=== PATIENT | female | born 1960 | race Caucasian/White ===

== ENCOUNTER 2016-05-18 18:44 | Emergency (ER) | payer MEDICARE, MEDICAID ==
[~2016-05-18] VITALS: Ht 165.1 cm; Wt 68.0 kg
[~2016-05-18 18:44] MED LIST: ALPR.5T; ALPR2TAB2 PO; ASP81TEC; BIAXIN; C250T; CEFU250T PO; DEXL60CA PO; E400C; EST.625T PO; LACT10SO33 PO; MULT1TAB63; NF-ESOM40C PO; RNT150T PO; SIMV10TA3; SIMV10TA3 PO; TRAM-21 PO
[2016-05-18] MEDS ORDERED: NF-ESOM40C PO (19:01)
[2016-05-18 19:02] LABS: BASOPHILS % (AUTO) 0 % (0-10); EOSINOPHILS # (AUTO) 0.1 10^3/uL (0.0-0.3); EOSINOPHILS % (AUTO) 2 % (0-10); LYMPHOCYTES # (AUTO) 2.6 X 10^3 (1.0-4.0); LYMPHOCYTES % (AUTO) 58 % (12-44); MEAN CORPUSCULAR HEMOGLOBIN 34 PG (25-34); MEAN CORPUSCULAR HGB CONC 34 G/DL (32-36); MEAN CORPUSCULAR VOLUME 98 FL (80-99); MEAN PLATELET VOLUME 10.6 FL (7.4-10.4); MONOCYTES # (AUTO) 0.6 X 10^3 (0.0-1.0); MONOCYTES % (AUTO) 12 % (0-12); NEUTROPHILS # (AUTO) 1.2 X 10^3 (1.8-7.8); NEUTROPHILS % (AUTO) 27 % (42-75); PLATELET COUNT 194 10^3/uL (130-400); RED BLOOD COUNT 3.66 10^6/uL (4.35-5.85); RED CELL DISTRIBUTION WIDTH 11.6 % (10.0-14.5); WHITE BLOOD COUNT 4.5 10^3/uL (4.3-11.0)
[2016-05-18 19:05] LABS: INR 1.1 (0.8-1.4); PROTHROMBIN TIME PATIENT 13.9 SEC (12.2-14.7)
--- NOTE | 2016-05-18 19:11 | Diagnostic Imaging Report ---
CHEST 1 VIEW, AP/PA ONLY Indication: Chest pain for 3 days Comparison: None available. Findings: No focal airspace disease in the visualized lungs. Please note that the posterior lower lobes are poorly evaluated by portable radiography. No pleural effusion or pneumothorax. Normal cardiomediastinal silhouette. Degenerative changes at the right sternoclavicular joint results in a stable nodular opacity over the right upper medial lung zone. Impression: No acute cardiopulmonary process by portable radiography. Dictated by: Dictated on workstation # [id number]
[2016-05-18 19:15] LABS: ALANINE AMINOTRANSFERASE 15 U/L (0-55); ANION GAP 10 MMOL/L (5-14); ASPARTATE AMINO TRANSFERASE 21 U/L (5-34); BILIRUBIN,TOTAL 0.4 MG/DL (0.1-1.0); BLOOD UREA NITROGEN 17 MG/DL (7-18); BUN/CREATININE RATIO 22; CARBON DIOXIDE 26 MMOL/L (21-32); CHLORIDE 104 MMOL/L (98-107); CREATINE KINASE 79 U/L (29-168); CREATININE SERUM 0.79 MG/DL (0.60-1.30); GFR ESTIMATED > 60; GLUCOSE 88 MG/DL (70-105); MAGNESIUM 2.1 MG/DL (1.8-2.4); POTASSIUM 4.1 MMOL/L (3.6-5.0); SODIUM 140 MMOL/L (135-145); TOTAL PROTEIN 6.4 G/DL (6.4-8.2)
[2016-05-18 19:21] LABS: MYOGLOBIN SERUM 20.9 NG/ML (10.0-92.0)
--- NOTE | 2016-05-18 19:41 | ED Chest Pain ---
General Chief Complaint: Chest Pain Stated Complaint: CP Nursing Triage Note: Pt. advises chest pain began approx. 3 days ago but has become progressively worse. Nursing Sepsis Screen: No Definite Risk Source: patient, old records Exam Limitations: no limitations History of Present Illness Time seen by provider: 18:40 Initial Comments This 55-year-old woman presents to the emergency room with complaints of chest pain and palpitations worsening over the last 3 days. She reports pain was 10/ 10 at its worst but is now minimal at 2/10. She arrived by EMS and aspirin 324 mg was administered by EMS. Nitroglycerin was not administered as blood pressures were in the 100-110 range systolic. Patient reports her pain today actually started in her legs as she was having an exacerbation of chronic leg pain. She laid down to watch TV and put her legs up. The pain then traveled up her legs into her chest, arms, and neck. She has been feeling nauseated and fatigued. She also reports having "breast pain" for a few weeks. She has an appointment with Dr. Jack on the but felt she couldn't wait today. The pain in her chest feels like a dull pressure. She has a history of anxiety but states this feels different than her usual anxiety. Review of her chart reveals a negative stress test in February 2008, a negative stress echo in May 2011, a stress test in April 2013 showing minimal reversible nondiagnostic EKG changes, and a negative stress test in October of last year. Allergies and Home Medications Allergies Coded Allergies: No Known Drug Allergies (Verified , 05/31/15) Home Medications Alprazolam 2 Mg Tablet, 2 MG PO TID PRN, (Reported) Dexlansoprazole 60 Mg , 60 MG PO DAILY, (Reported) Esomeprazole Magnesium 40 Mg Cap, 40 MG PO, (Reported) Simvastatin 10 Mg Tablet, 10 MG PO HS, (Reported) Review of Systems Constitutional: see HPI EENTM: No Symptoms Reported Respiratory: No Symptoms Reported Cardiovascular: See HPI Gastrointestinal: See HPI Genitourinary: No Symptoms Reported Musculoskeletal: see HPI Skin: no symptoms reported Psychiatric/Neurological: Anxiety Endocrine: No Symptoms Reported Past Cfwjgcw-Eurjoh-Vsjpts Hx Patient Social History Alcohol Use: Denies Use Recreational Drug Use: No Smoking Status: Former Smoker Type Used: Cigarettes Recent Foreign Travel: No Contact w/Someone Who Travel: No Recent Infectious Disease Expo: No Surgeries HX Surgeries: Yes (CYST FROM BREAST. 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 Genitourinary Hx Genitourinary Disorders: Yes (uti) Gastrointestinal Hx Gastrointestinal Disorders: Yes (REFLUX, HIATAL HERNIA, gastritis) Gastrointestinal Disorders: Gastroesophageal Reflux, Ulcer Musculoskeletal Hx Musculoskeletal Disorders: Yes (chronic leg pain) Musculoskeletal Disorders: Degenerate Disk Disease Endocrine Hx Endocrine Disorders: Yes Endocrine Disorders: Hypothyroidsim HEENT HX ENT Disorders: No Cancer Hx Cancer: No Psychosocial Hx Psychiatric Problems: Yes Behavioral Health Disorders: Anxiety, Depression Blood Transfusions Hx Blood Disorders: Yes Family Medical History Significant Family History: Heart Disease, Stroke Physical Exam Vital Signs Vital Sign - Last 12Hours 05/18/16 05/18/16 18:48 18:51 Temp 97.8 Pulse 54 Resp 14 B/P (MAP) 111/67 Pulse Ox 98 O2 Delivery Room Air Capillary Refill : Less Than 3 Seconds General Appearance: WD/WN, Anxious HEENT: PERRL/EOMI, Normal ENT Inspection, Pharynx Normal Neck: Normal Inspection, Other (tenderness over the left sternocleidomastoid muscle) Respiratory: Chest Non Tender, Lungs Clear, Normal Breath Sounds, No Accessory Muscle Use, No Respiratory Distress Cardiovascular: Regular Rate, Rhythm, No Edema, No Murmur, Normal Peripheral Pulses Gastrointestinal: Non Tender, Soft Extremity: Normal Inspection, Non Tender, No Pedal Edema Neurologic/Psychiatric: Alert, Oriented x3, No Motor/Sensory Deficits, Normal 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, 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 Norm as Tested Skin: Normal Color, Warm/Dry Progress/Results/Core Measures Results/Orders Lab Results Laboratory Tests Test 05/18/16 18:48 Range/Units White Blood Count 4.5 4.3-11.0 10^3/uL Red Blood Count 3.66 L 4.35-5.85 10^6/uL Hemoglobin 12.3 11.5-16.0 G/DL Hematocrit 36 35-52 % Mean Corpuscular Volume 98 80-99 FL Mean Corpuscular Hemoglobin 34 25-34 PG Mean Corpuscular Hemoglobin Concent 34 32-36 G/DL Red Cell Distribution Width 11.6 10.0-14.5 % Platelet Count 194 130-400 10^3/uL Mean Platelet Volume 10.6 H 7.4-10.4 FL Neutrophils (%) (Auto) 27 L 42-75 % Lymphocytes (%) (Auto) 58 H 12-44 % Monocytes (%) (Auto) 12 0-12 % Eosinophils (%) (Auto) 2 0-10 % Basophils (%) (Auto) 0 0-10 % Neutrophils # (Auto) 1.2 L 1.8-7.8 X 10^3 Lymphocytes # (Auto) 2.6 1.0-4.0 X 10^3 Monocytes # (Auto) 0.6 0.0-1.0 X 10^3 Eosinophils # (Auto) 0.1 0.0-0.3 10^3/uL Basophils # (Auto) 0.0 0.0-0.1 10^3/uL Prothrombin Time 13.9 12.2-14.7 SEC INR Comment 1.1 0.8-1.4 Activated Partial Thromboplast Time 23 L 24-35 SEC Sodium Level 140 135-145 MMOL/L Potassium Level 4.1 3.6-5.0 MMOL/L Chloride Level 104 98-107 MMOL/L Carbon Dioxide Level 26 21-32 MMOL/L Anion Gap 10 5-14 MMOL/L Blood Urea Nitrogen 17 7-18 MG/DL Creatinine 0.79 0.60-1.30 MG/DL Estimat Glomerular Filtration Rate > 60 BUN/Creatinine Ratio 22 Glucose Level 88 70-105 MG/DL Calcium Level 9.0 8.5-10.1 MG/DL Magnesium Level 2.1 1.8-2.4 MG/DL Total Bilirubin 0.4 0.1-1.0 MG/DL Aspartate Amino Transf (AST/SGOT) 21 5-34 U/L Alanine Aminotransferase (ALT/SGPT) 15 0-55 U/L Alkaline Phosphatase 55 40-136 U/L Total Creatine Kinase 79 29-168 U/L Myoglobin 20.9 10.0-92.0 NG/ML Troponin I < 0.30 <0.30 NG/ML Total Protein 6.4 6.4-8.2 G/DL Albumin 4.0 3.2-4.5 G/DL My Orders Orders - HELIO SALDAÑA MD Cbc With Automated Diff (05/18/16 18:57) Magnesium (05/18/16 18:57) Chest 1 View, Ap/Pa Only (05/18/16 18:57) Ekg Tracing (05/18/16 18:57) Cardiac Profile 1 (05/18/16 18:57) Comprehensive Metabolic Panel (05/18/16 18:57) Myoglobin Serum (05/18/16 18:57) Protime With Inr (05/18/16 18:57) Partial Thromboplastin Time (05/18/16 18:57) O2 (05/18/16 18:57) Monitor-Rhythm Ecg Trace Only (05/18/16 18:57) Saline Lock/Iv-Start (05/18/16 18:57) Creatine Kinase (05/18/16 18:57) Ketorolac Injection (Toradol Injection) (05/18/16 19:45) Medications Given in ED Current Medications Medications Dose Ordered Sig/Gray Route Start Time Stop Time Status Last Admin Dose Admin Ketorolac Tromethamine 30 mg ONCE ONCE IVP 05/18/16 19:45 05/18/16 19:46 DC 05/18/16 19:55 30 MG Vital Signs/I&O Vital Sign - Last 12Hours 05/18/16 05/18/16 05/18/16 05/18/16 18:48 18:51 18:51 21:03 Temp 97.8 Pulse 54 50 Resp 14 14 B/P (MAP) 111/67 Pulse Ox 98 96 98 O2 Delivery Room Air Room Air Room Air Blood Pressure Mean: 82 Progress Note : Time: 20:38 Progress Note Patient was given aspirin by EMS. Nitroglycerin was not given due to borderline blood pressure. Toradol was administered for her generalized pain including chest pain and pain in the left sternocleidomastoid muscle. This did seem to improve her discomfort. Patient continued to be rather anxious. I suspect she is fighting a viral illness as she has an increased percentage of lymphocytes on her CBC. Workup was unremarkable otherwise. ECG Initial ECG Impression Date: May 18, 2016 Initial ECG Impression Time: 18:48 Initial ECG Rate: 56 Initial ECG Rhythm: Normal Sinus Initial ECG Intervals: Normal Initial ECG Impression: Normal Comment Normal sinus rhythm with no ST elevation or depression. No abnormal intervals or axis deviation. Diagnostic Imaging Diagonstic Imaging: Xray Plain Films/CT/US/NM/MRI: chest Comments Chest x-ray viewed by me and report reviewed. See report below: NAME: RAIN HENSLEY [facility] REC#: [id number] PT STATUS: REG ER : 1960 PHYSICIAN: HELIO SALDAÑA MD ADMIT DATE: 05/18/16/ER Signed Date of Exam: 05/18/16 CHEST 1 VIEW, AP/PA ONLY CHEST 1 VIEW, AP/PA ONLY Indication: Chest pain for 3 days Comparison: None available. Findings: No focal airspace disease in the visualized lungs. Please note that the posterior lower lobes are poorly evaluated by portable radiography. No pleural effusion or pneumothorax. Normal cardiomediastinal silhouette. Degenerative changes at the right sternoclavicular joint results in a stable nodular opacity over the right upper medial lung zone. Impression: No acute cardiopulmonary process by portable radiography. Dictated by: Dictated on workstation # [id number] Dict: 05/18/161909 Trans: 05/18/161919 [facility] [id number] Interpreted by: SILVIO ALVARADO MD Electronically signed by:SILVIO ALVARADO MD 05/18/161919 Departure Impression Impression: Primary Impression: Generalized pain Additional Impressions: Atypical chest pain Sternocleidomastoid muscle tenderness Disposition: 01 HOME, SELF-CARE Condition: Improved Departure-Patient Inst. Decision time for Depature: 20:30 Referrals: ISELA EHNSLEY MD (PCP/Family) Primary Care Physician Patient Instructions: Chest Pain That Is Not Caused by the Heart (DC) Add. Discharge Instructions: Keep your appointment with Dr. Jack next week and follow-up with your primary care provider as well. Return to emergency room if symptoms worsen. You may continue NSAID therapy with medications such as ibuprofen or Aleve ( naproxen). You may take your next dose after midnight. Your white blood cell count shows a higher percentage of lymphocytes which may mean you are fighting off a viral infection. Your total number of lymphocytes is normal. Please discuss with your primary care provider. All discharge instructions reviewed with patient and/or family. Voiced understanding. Copy Copies To 1: ISELA HENSLEY MD Copies To 2: MAXIMUS JACK MD, JOSHUA T MD May 18, 2016 19:41
[2016-05-18] MEDS ORDERED: KETOROLAC 30 MG/ML VIAL IVP ONE (19:45)
[2016-05-18 21:03] VITALS: BP 104/45
--- OUTSIDE RECORDS SUMMARY | 2016-06-04 11:53 | XMS REPORT | Continuity of Care Document ---
Author Author [facility] Address Unknown Phone Unavailable Allergies Active Description Code Type Severity Reaction Onset Reported/Identified Relationship to Patient Clinical Status Yes NKANo Known Allergies NKA Miscellaneous Allergy Mild N/A 08/12/2008 Yes No Known Drug Allergies [id number] Drug Allergy Unknown N/ A 05/31/2015 Medications Problems Date Dx Coded Attending Type Code Diagnosis Diagnosed By 12/19/2009 Ot 535.50 12/19/2009 Ot 789.06 12/19/2009 Ot V58.69 01/08/2011 Ot 530.81 ESOPHAGEAL REFLUX 01/08/2011 Ot 535.40 OTH SPECIFIED GASTRITIS,W/O MENTION OF H 01/08/2011 Ot V04.81 ND FOR PROPHYLACTIC VACCIN AND INOCULATI 01/08/2011 Ot V58.69 OTH MED,LT,CURRENT USE 10/30/2011 BALDO LAGUERRE DO K 599.0 URINARY TRACT INFECTION 10/30/2011 BALDO LAGUERRE DO K 599.0 URINARY TRACT INFECTION 12/03/2012 BALDO LAGUERRE DO K 461.8 OTHER ACUTE SINUSITIS 12/03/2012 BALDO LAGUERRE DO K 461.8 OTHER ACUTE SINUSITIS 01/26/2013 BALDO LAGUERRE DO K 466.0 BRONCHITIS, ACUTE 07/26/2013 MAXIMUS BALDERAS MD Ot 530.81 ESOPHAGEAL REFLUX 07/26/2013 MAXIMUS BALDERAS MD Ot 533.90 PEPTIC ULCER NOS 07/26/2013 MAXIMUS BALDERAS MD Ot 785.1 PALPITATIONS 07/26/2013 MAXIMUS BALDERAS MD Ot 786.09 RESPIRATORY ABNORM NEC 07/26/2013 MAXIMUS BALDERAS MD Ot 786.50 CHEST PAIN NOS 07/26/2013 MAXIMUS BALDERAS MD Ot V17.3 FAM HX-ISCHEM HEART DIS 04/20/2014 MAXIMUS BALDERAS MD Ot 530.81 04/20/2014 MAXIMUS BALDERAS MD Ot 533.90 04/20/2014 SHERRIE MCKENZIE MAXIMUS Ceballos Ot 785.1 04/20/2014 SHERRIE MCKENZIE, MAXIMUS Ceballos Ot 786.09 04/20/2014 SHERRIE MCKENZIE, MAXIMUS Ceballos Ot 786.50 04/20/2014 SHERRIE MCKENZIE, MAXIMUS Ceballos Ot V17.3 05/09/2015 Ot 241.0 05/09/2015 Ot 784.1 05/09/2015 Ot 784.42 05/09/2015 Ot 241.0 05/09/2015 Ot 388.70 05/09/2015 Ot 723.1 05/09/2015 Ot 784.42 05/09/2015 Ot V76.12 05/09/2015 Ot 241.0 05/09/2015 Ot 241.0 05/09/2015 Ot 789.01 05/09/2015 Ot 241.0 05/09/2015 Ot 397.0 05/09/2015 Ot 424.0 05/09/2015 Ot 786.09 05/09/2015 Ot 786.50 05/09/2015 Ot 729.81 05/09/2015 Ot 724.5 05/09/2015 Ot 789.09 05/09/2015 Ot V45.77 05/09/2015 Ot V45.79 05/09/2015 Ot V88.01 05/09/2015 Ot 564.00 05/09/2015 Ot 625.9 05/09/2015 Ot 789.00 05/09/2015 Ot 241.1 05/09/2015 Ot 478.19 05/09/2015 Ot 794.09 05/09/2015 RICH MCKENZIE, MATTI Vaca Ot 473.9 05/09/2015 SHELLIE MCKENZIE, ISELA Strong Ot 253.8 05/09/2015 SHERRIE MCKENZIE, MAXIMUS Ceballos Ot 530.81 05/09/2015 SHERRIE MCKENZIE, MAXIMUS Ceballos Ot 533.90 05/09/2015 SHERRIE MCKENZIE, MAXIMUS Ceballos Ot 785.1 05/09/2015 SHERRIE MCKEZNIE, MAXIMUS Ceballos Ot 786.09 05/09/2015 SHERRIE MCKENZIE, MAXIMUS Ceballos Ot 786.50 05/09/2015 MAXIMUS BALDERAS MD Ot V17.3 05/09/2015 Ot 530.81 05/09/2015 Ot 533.90 05/09/2015 Ot 785.1 05/09/2015 Ot 786.09 05/09/2015 Ot 786.50 05/09/2015 Ot V17.3 05/09/2015 VIR[employer]JOSE [employer] Ot 611.71 05/09/2015 JOSE L VIRK [employer] Ot 793.89 05/09/2015 SHELLIE MCKENZIE, ISELA Strong Ot 784.0 05/09/2015 [employer] Ot R04.2 HEMOPTYSIS 05/09/2015 [employer] Ot R07.0 PAIN IN THROAT 05/10/2015 [employer] Ot R04.2 05/10/2015 [employer] Ot R07.0 05/11/2015 [employer] Ot R04.2 05/11/2015 [employer] Ot R07.0 05/29/2015 Ot 530.81 05/29/2015 Ot 533.90 05/29/2015 Ot 785.1 05/29/2015 Ot 786.09 05/29/2015 Ot 786.50 05/29/2015 Ot V17.3 05/29/2015 BRAD LUIS MD Ot R13.10 DYSPHAGIA, UNSPECIFIED 05/29/2015 JANELLE MCKENZIE, BRAD Ot Z01.818 ENCOUNTER FOR OTHER PREPROCEDURAL EXAMIN 05/30/2015 BRAD LUIS MD Ot R13.10 05/30/2015 BRAD LUIS MD Ot Z01.818 05/31/2015 Ot 530.81 05/31/2015 Ot 533.90 05/31/2015 Ot 785.1 05/31/2015 Ot 786.09 05/31/2015 Ot 786.50 05/31/2015 Ot V17.3 05/31/2015 BRAD LUIS MD Ot K22.2 ESOPHAGEAL OBSTRUCTION 05/31/2015 BRAD LUIS MD Ot K29.70 GASTRITIS, UNSPECIFIED, WITHOUT BLEEDING 05/31/2015 BRAD LUIS MD Ot K44.9 DIAPHRAGMATIC HERNIA WITHOUT OBSTRUCTION 06/01/2015 BRAD LUIS MD Ot K22.2 06/01/2015 BRAD LUIS MD Ot K29.70 06/01/2015 BRAD LUIS MD Ot K44.9 06/06/2015 BRAD LUIS MD Ot K22.2 06/06/2015 JANELLE MCKENZIE, BRAD Ot K29.70 06/06/2015 JANELLE MCKENZIE, BRAD Ot K44.9 10/04/2015 Ot V76.12 OTH SCREEN MAMMO-MALIGN NEOPLASM OF SANJAY 10/04/2015 Ot 241.0 NONTOX UNINODULAR GOITER 10/04/2015 Ot 241.0 NONTOX UNINODULAR GOITER 10/04/2015 Ot 789.01 ABDOMINAL PAIN, RIGHT UPPER QUADRANT 10/04/2015 Ot 241.0 NONTOX UNINODULAR GOITER 10/04/2015 Ot 397.0 TRICUSPID VALVE DISEASE 10/04/2015 Ot 424.0 MITRAL VALVE DISORDER 10/04/2015 Ot 786.09 RESPIRATORY ABNORM NEC 10/04/2015 Ot 786.50 CHEST PAIN NOS 10/04/2015 Ot 729.81 SWELLING OF LIMB 10/04/2015 Ot 724.5 BACKACHE NOS 10/04/2015 Ot 789.09 ABDOMINAL PAIN, OTHER SPECIFIED SITE 10/04/2015 Ot V45.77 ACQRD ABSENCE OF GENITAL ORGANS 10/04/2015 Ot V45.79 ACQRD ABSENCE OF OTH ORGAN 10/04/2015 Ot V88.01 ACQUIRED ABSENCE OF BOTH CERVIX AND UTER 10/04/2015 Ot 564.00 UNSPEC CONSTIPATION 10/04/2015 Ot 625.9 FEM GENITAL SYMPTOMS NOS 10/04/2015 Ot 789.00 ABDOMINAL PAIN, UNSPECIFIED SITE 10/04/2015 Ot 241.1 NONTOX MULTINODUL GOITER 10/04/2015 Ot 478.19 OTHER DISEASE OF NASAL CAVITY AND SINUSE 10/04/2015 Ot 794.09 ABN QUANTITATIVE ASSOCIATE FUNCT STUDY NEC 10/04/2015 RICH MCKENZIE, MATTI Vaca Ot 473.9 CHRONIC SINUSITIS NOS 10/04/2015 SHELLIE MCKENZIE, ISELA Strong Ot 253.8 PITUITARY DISORDER NEC 10/04/2015 SHERRIE MCKENZIE, MAXIMUS Ceballos Ot 530.81 ESOPHAGEAL REFLUX 10/04/2015 MAXIMUS BALDERAS MD Ot 533.90 PEPTIC ULCER NOS 10/04/2015 MAXIMUS BALDERAS MD Ot 785.1 PALPITATIONS 10/04/2015 MAXIMUS BALDERAS MD Ot 786.09 RESPIRATORY ABNORM NEC 10/04/2015 MAXIMUS BALDERAS MD Ot 786.50 CHEST PAIN NOS 10/04/2015 SHERRIE MD, BASHAR J Ot V17.3 FAM HX-ISCHEM HEART DIS 10/04/2015 Ot 530.81 ESOPHAGEAL REFLUX 10/04/2015 Ot 533.90 PEPTIC ULCER NOS 10/04/2015 Ot 785.1 PALPITATIONS 10/04/2015 Ot 786.09 RESPIRATORY ABNORM NEC 10/04/2015 Ot 786.50 CHEST PAIN NOS 10/04/2015 Ot V17.3 FAM HX-ISCHEM HEART DIS 10/04/2015 VIRKJOSE L ANTONIO Ish [employer] Ot 611.71 MASTODYNIA 10/04/2015 [employer] Ot 793.89 OTH (ABN) FINDINGS ON RADIOLOGICAL EXAMI 10/04/2015 SHELLIE MCKENZIE, ISELA Strong Ot 784.0 HEADACHE 10/05/2015 MIR RUELAS Ot F41.8 OTHER SPECIFIED ANXIETY DISORDERS 10/05/2015 MIR RUELAS Ot K21.9 GASTRO-ESOPHAGEAL REFLUX DISEASE WITHOUT 10/05/2015 MIR RUELAS Ot R00.2 PALPITATIONS 10/05/2015 MIR RUELAS Ot R07.89 OTHER CHEST PAIN 10/05/2015 MIR RUELAS Ot F41.8 OTHER SPECIFIED ANXIETY DISORDERS 10/05/2015 MIR RUELAS Ot K21.9 GASTRO-ESOPHAGEAL REFLUX DISEASE WITHOUT 10/05/2015 MIR RUELAS Ot R00.2 PALPITATIONS 10/05/2015 MIR RUEALS Ot R07.89 OTHER CHEST PAIN 10/26/2015 MIR RUELAS Ot F41.8 OTHER SPECIFIED ANXIETY DISORDERS 10/26/2015 MIR RUELAS Ot K21.9 GASTRO-ESOPHAGEAL REFLUX DISEASE WITHOUT 10/26/2015 MIR RUELAS Ot R00.2 PALPITATIONS 10/26/2015 MIR RUELAS Ot R07.89 OTHER CHEST PAIN 10/31/2015 MIR RUELAS Ot F41.8 OTHER SPECIFIED ANXIETY DISORDERS 10/31/2015 MIR RUELAS Ot K21.9 GASTRO-ESOPHAGEAL REFLUX DISEASE WITHOUT 10/31/2015 [facility], MIR K Ot R00.2 PALPITATIONS 10/31/2015 [facility], MIR K Ot R07.89 OTHER CHEST PAIN 11/09/2015 M[place]ROSIE PA, MIR K Ot R00.2 PALPITATIONS 11/09/2015 [place] PA, MIR K Ot R00.2 PALPITATIONS 11/09/2015 [facility] PA, MIR K Ot R07.9 CHEST PAIN, UNSPECIFIED 12/01/2015 [facility] PA, MIR K Ot R00.2 PALPITATIONS 12/01/2015 [facility] PA, MIR K Ot R07.9 CHEST PAIN, UNSPECIFIED 12/06/2015 [facility], MIR K Ot R00.2 PALPITATIONS 12/06/2015 [facility], MIR K Ot R07.9 CHEST PAIN, UNSPECIFIED 05/18/2016 PIOTR MCKENZIE, HELIO T Ot M79.1 MYALGIA 05/18/2016 PIOTR MCKENZIE, HELIO T Ot R00.2 PALPITATIONS 05/18/2016 PIOTR MCKENZIE, HELIO T Ot R07.89 OTHER CHEST PAIN 05/18/2016 PIOTR MCKENZIE, HELIO T Ot Z87.891 PERSONAL HISTORY OF NICOTINE DEPENDENCE 05/20/2016 PIOTR MCKENZIE, HELIO T Ot M79.1 MYALGIA 05/20/2016 PIOTR MCKENZIE, HELIO T Ot R00.2 PALPITATIONS 05/20/2016 PIOTR MCKENZIE, HELIO T Ot R07.89 OTHER CHEST PAIN 05/20/2016 PIOTR MCKENZIE, HELIO T Ot Z87.891 PERSONAL HISTORY OF NICOTINE DEPENDENCE 05/22/2016 PIOTR MCKENZIE, HELIO T Ot M79.1 MYALGIA 05/22/2016 PIOTR MCKENZIE, HELIO T Ot R00.2 PALPITATIONS 05/22/2016 PIOTR MCKENZIE, HELIO T Ot R07.89 OTHER CHEST PAIN 05/22/2016 PIOTR MCKENZIE, HELIO T Ot Z87.891 PERSONAL HISTORY OF NICOTINE DEPENDENCE 05/29/2016 Ot 241.0 NONTOX UNINODULAR GOITER 05/29/2016 Ot 789.01 ABDOMINAL PAIN, RIGHT UPPER QUADRANT 05/29/2016 Ot 241.0 NONTOX UNINODULAR GOITER 05/29/2016 Ot 397.0 TRICUSPID VALVE DISEASE 05/29/2016 Ot 424.0 MITRAL VALVE DISORDER 05/29/2016 Ot 786.09 RESPIRATORY ABNORM NEC 05/29/2016 Ot 786.50 CHEST PAIN NOS 05/29/2016 Ot 729.81 SWELLING OF LIMB 05/29/2016 Ot 724.5 BACKACHE NOS 05/29/2016 Ot 789.09 ABDOMINAL PAIN, OTHER SPECIFIED SITE 05/29/2016 Ot V45.77 ACQRD ABSENCE OF GENITAL ORGANS 05/29/2016 Ot V45.79 ACQRD ABSENCE OF OTH ORGAN 05/29/2016 Ot V88.01 ACQUIRED ABSENCE OF BOTH CERVIX AND UTER 05/29/2016 Ot 564.00 UNSPEC CONSTIPATION 05/29/2016 Ot 625.9 FEM GENITAL SYMPTOMS NOS 05/29/2016 Ot 789.00 ABDOMINAL PAIN, UNSPECIFIED SITE 05/29/2016 Ot 241.1 NONTOX MULTINODUL GOITER 05/29/2016 Ot 478.19 OTHER DISEASE OF NASAL CAVITY AND SINUSE 05/29/2016 Ot 794.09 ABN QUANTITATIVE ASSOCIATE FUNCT STUDY NEC 05/29/2016 RICH MCKENZIE, MATTI Vaca Ot 473.9 CHRONIC SINUSITIS NOS 05/29/2016 SHELLIE MCKENZIE, ISELA Strong Ot 253.8 PITUITARY DISORDER NEC 05/29/2016 MAXIMUS BALDERAS MD Ot 530.81 ESOPHAGEAL REFLUX 05/29/2016 MAXIMUS BALDERAS MD Ot 533.90 PEPTIC ULCER NOS 05/29/2016 MAXIMUS BALDERAS MD Ot 785.1 PALPITATIONS 05/29/2016 MAXIMUS BALDERAS MD Ot 786.09 RESPIRATORY ABNORM NEC 05/29/2016 MAXIMUS BALDERAS MD Ot 786.50 CHEST PAIN NOS 05/29/2016 MAXIMUS BALDERAS MD Ot V17.3 FAM HX-ISCHEM HEART DIS 05/29/2016 Ot 530.81 ESOPHAGEAL REFLUX 05/29/2016 Ot 533.90 PEPTIC ULCER NOS 05/29/2016 Ot 785.1 PALPITATIONS 05/29/2016 Ot 786.09 RESPIRATORY ABNORM NEC 05/29/2016 Ot 786.50 CHEST PAIN NOS 05/29/2016 Ot V17.3 FAM HX-ISCHEM HEART DIS 05/29/2016 JOSE L VIRK Ot 611.71 MASTODYNIA 05/29/2016 JOSE L VIRK [facility] Ot 793.89 OTH (ABN) FINDINGS ON RADIOLOGICAL EXAMI 05/29/2016 ISELA HENSLEY MD Ot 784.0 HEADACHE 05/29/2016 MIR RUELAS Ot F41.8 OTHER SPECIFIED ANXIETY DISORDERS 05/29/2016 MIR RUELAS Ot K21.9 GASTRO-ESOPHAGEAL REFLUX DISEASE WITHOUT 05/29/2016 MIR RUELAS Ot R00.2 PALPITATIONS 05/29/2016 MIR RUELAS Ot R07.89 OTHER CHEST PAIN 05/29/2016 MIR RUELAS Ot R00.2 PALPITATIONS 05/29/2016 MIR RUELAS Ot R07.9 CHEST PAIN, UNSPECIFIED Procedures Results Test Result Range Complete blood count (CBC) with automated white blood cell (WBC) differential - 05/18/16 18:48 Blood leukocytes automated count (number/volume) 4.5 10*3/ uL 4.3-11.0 Blood erythrocytes automated count (number/volume) 3.66 10*6 /uL 4.35-5.85 Venous blood hemoglobin measurement (mass/volume) 12.3 g/dL 11.5-16.0 Blood hematocrit (volume fraction) 36 % 35-52 Automated erythrocyte mean corpuscular volume 98 [foz_us] 80-99 Automated erythrocyte mean corpuscular hemoglobin (mass per erythrocyte) 34 pg 25-34 Automated erythrocyte mean corpuscular hemoglobin concentration measurement ( mass/volume) 34 g/dL 32-36 Automated erythrocyte distribution width ratio 11.6 % 10.0-14.5 Automated blood platelet count (count/volume) 194 10*3/uL 130-400 Automated blood platelet mean volume measurement 10.6 [foz_ us] 7.4-10.4 Automated blood neutrophils/100 leukocytes 27 % 42-75 Automated blood lymphocytes/100 leukocytes 58 % 12-44 Blood monocytes/100 leukocytes 12 % 0-12 Automated blood eosinophils/100 leukocytes 2 % 0-10 Automated blood basophils/100 leukocytes 0 % 0-10 Blood neutrophils automated count (number/volume) 1.2 10*3 1.8-7.8 Blood lymphocytes automated count (number/volume) 2.6 10*3 1.0-4.0 Blood monocytes automated count (number/volume) 0.6 10*3 0.0-1.0 Automated eosinophil count 0.1 10*3/uL 0.0-0.3 Automated blood basophil count (count/volume) 0.0 10*3/uL 0.0-0.1 PT panel in platelet poor plasma by coagulation assay - 05/18/16 18:48 Prothrombin time (PT) in platelet poor plasma by coagulation assay 13.9 s 12.2-14.7 INR in platelet poor plasma or blood by coagulation assay 1.1 0.8-1.4 Activated partial thromboplastin time (aPTT) in platelet poor plasma bycoagulation assay - 05/18/16 18:48 Activated partial thromboplastin time (aPTT) in platelet poor plasma bycoagulation assay 23 s 24-35 Comprehensive metabolic panel - 05/18/16 18:48 Serum or plasma sodium measurement (moles/volume) 140 mmol/ L 135-145 Serum or plasma potassium measurement (moles/volume) 4.1 mmol/L 3.6-5.0 Serum or plasma chloride measurement (moles/volume) 104 mmol /L 98-107 Carbon dioxide 26 mmol/L 21-32 Serum or plasma anion gap determination (moles/volume) 10 mmol/L 5-14 Serum or plasma urea nitrogen measurement (mass/volume) 17 mg/dL 7-18 Serum or plasma creatinine measurement (mass/volume) 0.79 mg /dL 0.60-1.30 Serum or plasma urea nitrogen/creatinine mass ratio 22 NRG Serum or plasma creatinine measurement with calculation of estimated glomerular filtration rate > NRG Serum or plasma glucose measurement (mass/volume) 88 mg/dL 70-105 Serum or plasma calcium measurement (mass/volume) 9.0 mg/dL 8.5-10.1 Serum or plasma total bilirubin measurement (mass/volume) 0.4 mg/dL 0.1-1.0 Serum or plasma alkaline phosphatase measurement (enzymatic activity/volume) 55 U/L 40-136 Serum or plasma aspartate aminotransferase measurement (enzymatic activity/ volume) 21 U/L 5-34 Serum or plasma alanine aminotransferase measurement (enzymatic activity/volume ) 15 U/L 0-55 Serum or plasma protein measurement (mass/volume) 6.4 g/dL 6.4-8.2 Serum or plasma albumin measurement (mass/volume) 4.0 g/dL 3.2-4.5 Magnesium - 05/18/16 18:48 Magnesium 2.1 mg/dL 1.8-2.4 Serum or plasma creatine kinase measurement (enzymatic activity/volume) - 05/18 18:48 Serum or plasma creatine kinase measurement (enzymatic activity/volume) 79 U/L 29-168 Serum or plasma troponin i.cardiac measurement (mass/volume) - 05/18/16 18:48 Serum or plasma troponin i.cardiac measurement (mass/volume) < ng/mL <0.30 Myoglobin, serum - 05/18/16 18:48 Myoglobin, serum 20.9 ng/mL 10.0-92.0 Encounters ACCT No. Visit Date/Time Discharge Status Pt. Type Provider Facility Loc./Unit Complaint [id number] 01/26/2013 14:01:00 01/26/2013 23: 59:59 [facility] Outpatient BALDO LAGUERRE DO [id number] 12/03/2012 08:39:00 12/03/2012 23: 59:59 [facility] Outpatient BALDO LAGUERRE DO
--- OUTSIDE RECORDS SUMMARY | 2016-06-04 11:53 | XMS REPORT ---
Author Author CORDELL MAN Organization [employer] Address Unknown Phone Unavailable Care Team Providers Care Wire Frame Lampshade Maker Name Role Phone CORDELL MAN CP Unavailable Allergies, Adverse Reactions, Alerts Substance Reaction Event Type N.K.D.A. Info Not Available Non Drug Allergy Problems Problem Type Condition Code Onset Dates Condition Status Problem Acute bronchitis 466.0 Active Problem Urinary tract infection, site not specified 599.0 Active Problem Encounter for dental examination Z01.20 Active Problem Other acute sinusitis 461.8 Active Assessment Dental examination Z01.20 Active Medications Medication Code System Code Instructions Start Date End Date Status Dosage Xanax [facility] [address]-10 1 mg Oct 30, 2011 1 Tablet 2 times per day Nexium [facility] [address]-01 40 mg Oct 30, 2011 take 1 capsule (40 mg ) by oral route once daily Flonase [facility] [address]-62 50 MCG/ACT Nasally Once a day August 19, 2014 1 spray in each nostril Simvastatin [facility] [address]-27 10 MG Orally Once a day 1 tablet in the evening Procedures Procedure Coding System Code Date INTRAORL-PERIAPICAL 1 FILM 76836 CPT-4 D0220 Nov 21, 2015 BITEWING - SINGLE FILM CPT-4 D0270 Nov 21, 2015 LTD ORAL EVALUATION - PROBLEM FOCUS CPT-4 D0140 Nov 21, 2015 Vital Signs Date/Time: Nov 21, 2015 Blood Pressure Diastolic 61 mmHg Blood Pressure Systolic 110 mmHg Results No Known Results Summary Purpose [employer] Submission
--- OUTSIDE RECORDS SUMMARY | 2016-06-04 11:53 | XMS REPORT ---
Author HERBERT Murphy [employer] Address Unknown Phone Unavailable Care Team Providers Care Digital Project Manager Name Role Phone HERBERT PELAEZ CP Unavailable Allergies, Adverse Reactions, Alerts Substance Reaction Event Type N.K.D.A. Info Not Available Non Drug Allergy Problems Problem Type Condition Code Onset Dates Condition Status Problem Acute bronchitis 466.0 Active Problem Urinary tract infection, site not specified 599.0 Active Problem Encounter for dental examination Z01.20 Active Problem Other acute sinusitis 461.8 Active Assessment Encounter for dental examination Z01.20 Active Medications Medication Code System Code Instructions Start Date End Date Status Dosage Simvastatin [facility] [address]-59 10 MG Orally Once a day 1 tablet in the evening Nexium [facility] [address]-23 40 mg Oct 30, 2011 take 1 capsule (40 mg ) by oral route once daily Xanax [facility] [address]-22 1 mg Oct 30, 2011 1 Tablet 2 times per day Procedures Procedure Coding System Code Date INTRAORL-PERIAPICAL 1 FILM 87512 CPT-4 D0220 Jan 09, 2015 INTRAORL-PERIAPICAL EA ADD FILM CPT-4 D0230 Jan 09, 2015 COMP ORAL EVALUATION - NEW/EST PT CPT-4 D0150 Jan 09, 2015 BITEWINGS - TWO FILMS CPT-4 D0272 Jan 09, 2015 INTRAORL-PERIAPICAL EA ADD FILM CPT-4 D0230 Jan 09, 2015 PROPHYLAXIS - ADULT CPT-4 D1110 Jan 09, 2015 Vital Signs Date/Time: Jan 09, 2015 Blood Pressure Diastolic 56 mmHg Blood Pressure Systolic 101 mmHg Cardiac Monitoring Heart Rate 62 bpm Results No Known Results Summary Purpose [employer] Submission
== END 2016-05-18 21:03 | disposition home or self-care (01) ==
LOC: EDUNIT# 18:44 → ER 18:45
DX: R07.89 Other chest pain (principal); M79.1 Myalgia; Z87.891 Personal history of nicotine dependence
CPT/HCPCS: 36415; 71010; 80053; 82550; 83735; 83874; 84484; 85025; 85610; 85730; 93005; 93041; 96374

== ENCOUNTER → 2016-06-06 | Outpatient (CLI) | payer MEDICARE, MEDICAID ==
[~2016-06-06] MED LIST changes: +ALPR2TAB6 PO; +CHOL5000 PO; +CYAN200014 PO; +MAGN250T PO; +NAPR220T66 PO; +SUCR1TAB PO; +VITA400C21 PO
--- NOTE | 2016-06-06 20:21 | Diagnostic Imaging Report ---
Examination: DEXA scan. Indication: Osteopenia. Technique: Bone mineral density estimated based on dual energy radiography over the lumbar spine and femoral necks, was performed. Findings: The lumbar spine T-score is 0.9. T-score over the left femoral neck is -1.2 and on the right side is -0.9. Impression: Borderline osteopenia based on femoral neck measurements. Dictated by: Dictated on workstation # [id number]
== END ==
LOC: RAD 11:45
PROVIDERS: ATTEND Family Medicine
DX: Z13.820 Encounter for screening for osteoporosis (principal); M85.88 Other specified disorders of bone density and structure, other site; Z78.0 Asymptomatic menopausal state
CPT/HCPCS: 77080

== ENCOUNTER 2016-06-12 07:56 | Day surgery (SDC) | payer MEDICARE, MEDICAID ==
[2016-06-12] VITALS (10 sets, daily range): BP systolic 92–118; BP diastolic 47–88
[~2016-06-12] VITALS: Ht 166.4 cm; Wt 68.0 kg
[~2016-06-12 07:56] MED LIST changes: -ALPR2TAB6 PO; -CHOL5000 PO; -CYAN200014 PO; -MAGN250T PO; -NAPR220T66 PO; -SUCR1TAB PO; -VITA400C21 PO
[2016-06-12] MEDS ORDERED: HEParin (CATH LAB) 2,000 ML IV ONE (08:10)
[2016-06-12] MEDS ORDERED: LIDOCAINE 1% INJ 20 ML (XYLOCAINE) VIAL ONE (08:10)
[2016-06-12] MEDS ORDERED: NS IV 1000 ML 1,000 ML ONE (08:10)
[2016-06-12] MEDS ORDERED: NS IV 1000 ML 1,000 ML IV SCH ×4 (08:16→10:24)
[2016-06-12 08:40] LABS: MEAN PLATELET VOLUME 10.4 FL (7.4-10.4); RED BLOOD COUNT 4.07 10^6/uL (4.35-5.85); RED CELL DISTRIBUTION WIDTH 11.7 % (10.0-14.5); WHITE BLOOD COUNT 4.8 10^3/uL (4.3-11.0)
[2016-06-12 08:41] LABS: BILIRUBIN,URINE NEGATIVE (NEGATIVE); KETONES,URINE NEGATIVE (NEGATIVE); LEUKOCYTE ESTERASE ,URINE NEGATIVE (NEGATIVE); NITRITE,URINE NEGATIVE (NEGATIVE); PH,URINE 6.5 (5-9); PROTEIN,URINE NEGATIVE (NEGATIVE); UROBILINOGEN,URINE NORMAL (NORMAL)
--- NOTE | 2016-06-12 08:45 | Diagnostic Imaging Report ---
INDICATION: Coronary artery disease. FINDINGS: The lungs are clear. The heart and vessels normal. There is no effusion or pneumothorax. IMPRESSION: Normal frontal chest. Dictated by: Dictated on workstation # [id number]
[2016-06-12 08:50] LABS: WBC,URINE 0-2 /HPF
[2016-06-12 08:52] LABS: PROTHROMBIN TIME PATIENT 12.9 SEC (12.2-14.7)
[2016-06-12 09:00] LABS: ALANINE AMINOTRANSFERASE 22 U/L (0-55); ALBUMIN 4.5 G/DL (3.2-4.5); ANION GAP 10 MMOL/L (5-14); ASPARTATE AMINO TRANSFERASE 24 U/L (5-34); BILIRUBIN,TOTAL 0.3 MG/DL (0.1-1.0); BLOOD UREA NITROGEN 16 MG/DL (7-18); BUN/CREATININE RATIO 20; CALCIUM 9.7 MG/DL (8.5-10.1); CARBON DIOXIDE 27 MMOL/L (21-32); CHLORIDE 102 MMOL/L (98-107); CHOLESTEROL 224 MG/DL (< 200); CREATININE SERUM 0.81 MG/DL (0.60-1.30); DIRECT LDL 141 MG/DL (1-129); GFR ESTIMATED > 60; GLUCOSE 96 MG/DL (70-105); POTASSIUM 3.7 MMOL/L (3.6-5.0); SODIUM 139 MMOL/L (135-145); TOTAL PROTEIN 7.5 G/DL (6.4-8.2); TRIGLYCERIDES 110 MG/DL (<150); VLDL CHOLESTEROL 22 MG/DL (5-40)
[2016-06-12] MEDS ORDERED: NAPR220T66 PO (09:17)
[2016-06-12] MEDS ORDERED: SUCR1TAB PO (09:17)
[2016-06-12] MEDS ORDERED: ALPR2TAB6 PO (09:17)
[2016-06-12] MEDS ORDERED: CYAN200014 PO (09:22)
[2016-06-12] MEDS ORDERED: MAGN250T PO (09:22)
[2016-06-12] MEDS ORDERED: VITA400C21 PO (09:22)
[2016-06-12] MEDS ORDERED: CHOL5000 PO (09:22)
[2016-06-12] MEDS ORDERED: fentaNYL INJECTION 100 MCG/2 ML AMP ONE (09:38)
[2016-06-12] MEDS ORDERED: MIDAZOLAM 5 MG/5 ML (VERSED) VIAL ONE (09:38)
--- NOTE | 2016-06-12 10:13 | Cardiac Procedure Note-CS/ASA ---
Pre-Procedure Note Pre-Op Procedure Note H&P Reviewed The H&P was reviewed, patient examined and no changes noted. Date H&P Reviewed: Jun 12, 2016 Time H&P Reviewed: 10:13 Conscious Sedation Pre-Proced Time Reviewed: 10:13 ASA Class: 3 Airway Mallampati Classification: ([place] appropriate class) I. II. III, IV Lungs Heart ASA score ASA 1: a normal healthy patient ASA 2: a patient with a mild systemic disease (mid diabetes, controlled hypertension, obesity x ASA 3: a patient with a severe systemic disease that limits activity (angina , COPD, prior Myocardial infarction) ASA 4: a patient with an incapacitating disease that is a constant threat to life (CHF, renal failure) ASA 5: a moribund patient not expected to survive 24 hrs. (ruptured aneurysm) ASA 6: a declared brain patient whose organs are being harvested. For emergent operations, add the letter E after the classification Grade 3 Sedation Plan: Analgesia, Amnesia, Plan communicated to team members, Discussed options with patient/fam, Discussed risks with patient/fam Note The patient is an appropriate candidate to undergo the planned procedure, sedation, and anesthesia. The patient immediately re-assessed prior to indication. MAXIMUS BALDERAS MD Jun 12, 2016 10:13
--- NOTE | 2016-06-12 10:28 | Discharge Inst-Post CATH ---
Discharge Inst-CATH Post Cardiac Cath D/C Inst Follow Up/Plan Appointment with Dr Jack's office in 2-4 weeks CARDIAC CATH DISCHARGE INSTRUCTIONS *Hold Metformin for 48 hours post heart cath. ACTIVITY * Go Home directly and rest. * Limit activity of the leg (or wrist if it was used) for 7 days including aerobics, swimming, jogging, bicycling, etc. * Restrict stair-climbing for 7 days if possible, if not, climb up with your non -cath leg, then bring together on the same step. * Avoid lifting, pushing, pulling or excessive movement of the affected extremity for 7 days. * Customary sexual activity may be resumed after 2 days-use caution not to use a position that strains or causes pain to the affected extremity. * No driving for 24 hours. * NO SMOKING. * Avoid straining for bowel movements for 7 days. * Gentle walking on level ground is allowed. * Returning to work will depend on the type of procedure and the results. Your doctor will discuss this with you. CALL YOUR DOCTOR FOR ANY OF THE FOLLOWING: *If bleeding from the puncture site occurs- Apply gentle pressure to site with clean cloth and call your doctor or EMS. * If a knot or lump forms under the skin, increases in size, or causes pain. * If bruising appears to be worsening or moving further down your leg instead of disappearing. * Temperature above 101 F. CARE OF YOUR GROIN INCISION; * Bruising or purple discoloration of the skin near the puncture site is common. * You may shower only, no bathtub bathing for 5 days. Be careful to avoid slipping as your leg may feel stiff. * If a closure device was used on your femoral artery, please see the attached guide regarding care of the device and your leg. * REMOVE the dressing from your groin the next day after your procedure in the shower. CARE OF YOUR WRIST INCISION; * Bruising or purple discoloration of the skin near the puncture site is common. * You may shower. * DO NOT submerge wrist. * Remove dressing in 24 hours. MAXIMUS JACK MD Jun 12, 2016 10:28
[2016-06-12] MEDS ORDERED: PATIENT MAY USE OWN MEDS, ALL PO SCH (10:30)
--- NOTE | 2016-06-13 10:40 | CARDIAC CATHETERIZATION ---
DATE OF SERVICE: 06/12/2016 CARDIAC CATHETERIZATION REFERRING PHYSICIAN: Dr. Tom Moraes BRIEF HISTORY: The patient is a 56-year-old lady with a history of recurrent chest pain and shortness of breath, had a borderline stress test. Continued to be symptomatic. Patient was scheduled for left heart catheterization, possible PTCA. PROCEDURE NOTE: After explaining the procedure to the patient, all pros and cons were explained, all questions were answered. The patient signed a consent and then she was place on the cardiac catheterization laboratory. Right groin was prepped in a sterile fashion. Local anesthesia applied to the right groin. A 6-Pashto sheath was placed in the right femoral artery. Combination of right and left Rudy catheter were used to access the right and left coronary system. Multiple views were obtained. Rudy right was prolapsed into the left ventricular cavity. Pressure was measured. No left ventriculogram was done. Pull back from LV to aorta was done. At the end of the procedure, sheath was removed. MYNX device deployed. Hemostasis achieved. TOTAL CONTRAST USED: 25 mL TOTAL RADIATION DOSE: 17 mGy FINDINGS: Hemodynamics: LV pressure 117/11, aortic pressure 123/60, mean of 78, no significant gradient across the aortic valve. ANATOMY: 1. The left main coronary artery is bifurcating into the left anterior descending and left circumflex artery with mild disease, no obstructive disease. 2. Left anterior descending is a smaller artery with no significant obstructive disease. 3. Left circumflex artery is moderate in size with mild disease, no significant obstructive disease. 4. Right coronary artery is a small artery with no significant obstructive disease. 5. No left ventriculogram was done. IN CONCLUSION: 1. Small to moderate-sized coronary system with mild coronary artery disease, no significant obstructive disease. 2. Normal left ventricular end diastolic pressure. DISCUSSION AND RECOMMENDATION: The patient's chest pain is probably noncardiac in nature. Medical therapy is recommended. No intervention is needed. FINAL DIAGNOSES: 1. Chest pain with nonspecific etiology. 2. Coronary artery disease. 3. Hypertension. 4. Hyperlipidemia. Job ID: [id number] DocumentID: [id number] Dictated Date: 06/12/2016 10:31:36 Interface Engineer Date: 06/12/2016 11:08:02 Dictated By: MAXIMUS BALDERAS MD
== END 2016-06-12 15:00 | disposition home or self-care (01) ==
LOC: CATH 07:56 → SURG 10:51 → CATH 15:00 → ENPENDDIS 15:00
PROVIDERS: ATTEND Internal Medicine Cardiovascular Disease
DX: R07.89 Other chest pain (principal); R06.02 Shortness of breath; I25.10 Atherosclerotic heart disease of native coronary artery without angina pectoris; I10 Essential (primary) hypertension; E78.5 Hyperlipidemia, unspecified; K21.9 Gastro-esophageal reflux disease without esophagitis; F41.9 Anxiety disorder, unspecified; R00.2 Palpitations; Z79.899 Other long term (current) drug therapy
CPT/HCPCS: 36415; 71010; 80053; 80061; 81000; 85027; 85610; 85730; 87081; 93458

== ENCOUNTER → 2016-06-28 | Outpatient (CLI) | payer MEDICARE, MEDICAID ==
[~2016-06-28] MED LIST changes: +ALPR2TAB6 PO; +CHOL5000 PO; +CYAN200014 PO; +MAGN250T PO; +NAPR220T66 PO; +SUCR1TAB PO; +VITA400C21 PO
--- NOTE | 2016-06-28 15:29 | Diagnostic Imaging Report ---
PROCEDURE: US Thyroid. TECHNIQUE: Multiple real-time grayscale images were obtained of the thyroid in various projections. INDICATION: Followup of thyroid nodules. COMPARISON: 04/06/2012. FINDINGS: The right lobe measures 4.0 x 1.4 x 1.1 cm. There are no nodules in the right lobe. The left lobe measures 4.7 x 1.2 x 1.2 cm. There are two nodules demonstrated on today's exam. One in the mid lobe measures 9 x 10 mm. This is somewhat ill defined and mildly hypodense. Second nodule in the inferior lobe measures 7 x 4 mm, also hypodense though well circumscribed. No hypervascularity. IMPRESSION: 1. There are two thyroid nodules demonstrated in the lower lobe and midportion in the left lobe of the thyroid today. These have not changed significantly in appearance since previous exam. No new nodules are present. Dictated by: Dictated on workstation # [id number]
== END ==
LOC: RAD 14:33
PROVIDERS: ATTEND Family Medicine
DX: E04.2 Nontoxic multinodular goiter (principal)
CPT/HCPCS: 76536

== ENCOUNTER → 2016-07-19 | Outpatient (CLI) | payer MEDICARE, MEDICAID ==
--- NOTE | 2016-07-23 09:19 | Diagnostic Imaging Report ---
Bilateral screening mammogram The current study was also evaluated with a Computer Aided Detection (CAD) system. Indication: Screening. No current complaints stated on the questionnaire. COMPARISON: 09/23/13 FINDINGS: The breasts are composed of scattered fibroglandular densities. Occasional punctate calcifications seen. Allowing for technique and positional differences, no suspicious change is seen. IMPRESSION: No significant change. ACR BI-RADS Category 2: Benign findings. Result letter will be mailed to the patient. Note: At least 10% of breast cancer is not imaged by mammography. Dictated by: Dictated on workstation # [id number]
== END ==
LOC: RAD 13:32
PROVIDERS: ATTEND Family Medicine
DX: Z12.31 Encounter for screening mammogram for malignant neoplasm of breast (principal)
CPT/HCPCS: 77067

== ENCOUNTER 2017-01-11 14:11 | Emergency (ER) | payer MEDICARE, MEDICAID ==
[~2017-01-11] VITALS: Ht 165.1 cm; Wt 68.0 kg
[~2017-01-11 14:11] MED LIST changes: -MAGN250T PO; +MAGN250T2 PO
--- NOTE | 2017-01-11 14:56 | Diagnostic Imaging Report ---
INDICATION: Right hip pain. COMPARISON: None available. TECHNIQUE: AP and frog-leg lateral views of the right hip. FINDINGS: No fracture. Normal femoral head and neck offset. No acetabular retroversion. Joint space of the right hip is maintained. Metallic coils overlying the pubic rami are compatible with prior herniorrhaphy. IMPRESSION: 1. No osseous abnormality of the right hip. Dictated by: Dictated on workstation # [id number]
--- NOTE | 2017-01-11 15:49 | ED General ---
General Chief Complaint: General Problems/Pain Stated Complaint: L LEG PAIN, R SIDE PAIN Nursing Triage Note: AMB TO ROOM C/O R LEG PAIN FOR 2 WEEKS NOT BEEN TAKING ANY PAIN MEDS TILL TODAY BECAUSE SHE DID NOT WANT TO MASK ANY SYMPTOMS. SAW DR Hannah YANEZ ON [facility] NOT REMEMBER WHAT HE TOLD HER. DID TAKE A ALEVE THIS AM Nursing Sepsis Screen: No Definite Risk Source of Information: Patient, Old Records Exam Limitations: No Limitations History of Present Illness Time Seen by Provider: 14:26 Initial Comments This 48-year-old woman presents today with a primary complaint of right thigh pain 2 weeks. Although this is her primary complaint, she has numerous complaints and her history is very scattered. She is rather anxious and is preoccupied with making sure we understand her complaints are legitimate and she is not a hypochondriac. She reports the pain in her thigh extends from the groin down to the mid thigh and is worse with walking and bearing weight. Sometimes the pain seems to extend into the right lower quadrant. She reports seeing Dr. Emile Yanez for this pain last week but makes claim that no exam was performed on the hip and no diagnosis or plan was communicated. She also complains of occasional pain in the left breast area that radiates down the left arm and is worse with activity. She also has some pain in the left axilla on occasion. This morning her leg pain started around 05:00. She denies any injury. She last took Aleve at 05:00. She has not taken any further pain medication because she did not want to mask the pain. She also complains of generalized lower back pain. Review of her chart notes a cardiac catheterization in May of this year demonstrating no obstructive disease. Allergies and Home Medications Allergies Coded Allergies: No Known Drug Allergies (Verified , 05/31/15) Home Medications Alprazolam 2 Mg Tablet, 2 MG PO TID PRN for ANXIETY, (Reported) Cholecalciferol (Vitamin D3) 5,000 Unit Capsule, 5,000 UNIT PO DAILY, (Reported) Cyanocobalamin (Vitamin B-12) 2,000 Mcg Tablet, 2,000 MCG PO DAILY, (Reported) Esomeprazole Magnesium 40 Mg Cap, 40 MG PO DAILY, (Reported) Magnesium 250 Mg Tablet, 250 MG PO DAILY, (Reported) Naproxen Sodium 220 Mg Tablet, 220 MG PO Q12H PRN for PAIN-MILD, (Reported) Simvastatin 10 Mg Tablet, 5 MG PO HS, (Reported) TAKES 1/2 OF A (10 MG) TABLET Sucralfate 1 Gm Tablet, 1 GM PO QID PRN for STOMACH UPSET, (Reported) Vitamin E 400 Unit Capsule, 400 UNIT PO DAILY, (Reported) Constitutional: no symptoms reported EENTM: no symptoms reported Respiratory: no symptoms reported Cardiovascular: no symptoms reported Gastrointestinal: no symptoms reported Genitourinary: no symptoms reported Musculoskeletal: see HPI Skin: no symptoms reported Psychiatric/Neurological: See HPI Hematologic/Lymphatic: No Symptoms Reported Immunological/Allergic: no symptoms reported Past Cjumvnh-Hihish-Msgofk Hx Patient Social History Alcohol Use: Denies Use Recreational Drug Use: No Type Used: Cigarettes Former Smoker, Quit: Jun 13, 1983 Recent Foreign Travel: No Contact w/Someone Who Travel: No Recent Infectious Disease Expo: No Recent Hopitalizations: Yes Surgeries History of Surgeries: Yes Surgeries: Breast, Eye Surgery, Gallbladder, Hysterectomy Respiratory History of Respiratory Disorde: No Cardiovascular History of Cardiac Disorders: Yes Cardiac Disorders: Deep Vein Thrombosis, High Cholesterol Neurological History of Neurological Disord: No Reproductive System Hx Reproductive Disorders: No Sexually Transmitted Disease: No 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 Gastrointestinal History of Gastrointestinal Di: Yes (history of bowel obstruction) Gastrointestinal Disorders: Gastroesophageal Reflux, Polyps, Hiatal Hernia, Ulcer Musculoskeletal History of Musculoskeletal Dis: Yes (chronic leg pain) Musculoskeletal Disorders: Degenerate Disk Disease Endocrine History of Endocrine Disorders: Yes Endocrine Disorders: Hypothyroidsim Cancer History of Cancer: No Psychosocial History of Psychiatric Problem: Yes Behavioral Health Disorders: Anxiety, Depression Integumentary History of Skin or Integumenta: Yes (history of cellulitis) Blood Transfusions History of Blood Disorders: Yes Family Medical History Significant Family History: Heart Disease, Stroke Physical Exam Vital Signs Vital Sign - Last 12Hours 01/11/17 01/11/17 14:25 15:56 Temp 98.4 Pulse 80 Resp 18 B/P (MAP) 108/52 Pulse Ox 98 O2 Delivery Room Air Capillary Refill : Less Than 3 Seconds General Appearance: WD/WN, Anxious HEENT: PERRL/EOMI, Normal ENT Inspection Neck: Normal Inspection Respiratory: Chest Non Tender, Lungs Clear, Normal Breath Sounds, No Accessory Muscle Use, No Respiratory Distress Cardiovascular: Regular Rate, Rhythm, No Edema, No Murmur Gastrointestinal: Normal Bowel Sounds, Soft, No Hernia, No Mass, Tenderness ( minimal in the right lower quadrant), Other Extremity: Normal Inspection, Normal Range of Motion, No Pedal Edema, Other ( minor tenderness in the right groin over the hip joint. Minimal pain with rotation of the hip. 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, Other (anxious) Skin: Normal Color, Warm/Dry Lymphatic: No Adenopathy, No Axilla Node Tender (L) Progress/Results/Core Measures Suspected Sepsis Recent Fever Within 48 Hours: No Infection Criteria Present: None New/Unexplained Altered Menta: No Sepsis Screen: No Definite Risk Sepsis Diagnosis: SIRS Temperature:98.4 Pulse: 80 Respiratory Rate: 18 Blood Pressure 108 /52 Mean: 70 Results/Orders My Orders Orders - HELIO SALDAÑA MD Hip, Right, 2 Views (01/11/17 14:40) Vital Signs/I&O Capillary Refill : Less Than 3 Seconds Blood Pressure Mean: 70 Progress Note : Progress Note Exam was fairly unremarkable. X-ray was also fairly unremarkable. Patient was offered lab and urinalysis to further evaluate her mild right lower quadrant pain. She declines at this time. Diagnostic Imaging Diagonstic Imaging: Xray Plain Films/CT/US/NM/MRI: hip Comments Right hip x-ray viewed by me and report reviewed. See report below: NAME: RAIN HENSLEY [facility] REC#: [id number] PT STATUS: REG ER : 1960 PHYSICIAN: HELIO SALDAÑA MD ADMIT DATE: 01/11/17/ER Signed Date of Exam: 01/11/17 HIP, RIGHT, 2 VIEWS INDICATION: Right hip pain. COMPARISON: None available. TECHNIQUE: AP and frog-leg lateral views of the right hip. FINDINGS: No fracture. Normal femoral head and neck offset. No acetabular retroversion. Joint space of the right hip is maintained. Metallic coils overlying the pubic rami are compatible with prior herniorrhaphy. IMPRESSION: 1. No osseous abnormality of the right hip. Dictated by: Dictated on workstation # [id number] Dict: 01/11/17 1453 Trans: 01/11/17 1518 Interpreted by: SILVIO ALVARADO MD Electronically signed by: SILVIO ALVARADO MD 01/11/17 1518 Departure Impression Impression: Primary Impression: Right thigh pain Additional Impressions: Atypical chest pain Lower back pain Qualified Codes: M54.41 - Lumbago with sciatica, right side Disposition: 01 HOME, SELF-CARE Condition: Stable Departure-Patient Inst. Decision time for Depature: 15:47 Referrals: EMILE YANEZ MD (PCP) Primary Care Physician ISELA HENSLEY MD (Family) Primary Care Physician Patient Instructions: Low Back Pain in Adults Add. Discharge Instructions: You may continue taking Aleve per package instructions. You may add Tylenol ( acetaminophen) up to 1000 mg every 6 hours as needed for additional pain relief. Follow-up with a primary care provider to discuss further. The pain radiating into your thigh could be related to lower back problems. Consider discussing an MRI with your primary care provider. Return to care if symptoms worsen. All discharge instructions reviewed with patient and/or family. Voiced understanding. Copy Copies To 1: EMILE YANEZ MD, JOSHUA T MD Jan 11, 2017 15:49
[2017-01-11 15:56] VITALS: BP 108/52
== END 2017-01-11 15:56 | disposition home or self-care (01) ==
LOC: EDUNIT# 14:11 → ER 14:12
DX: M79.651 Pain in right thigh (principal); M54.5 Low back pain; R07.89 Other chest pain; E78.00 Pure hypercholesterolemia, unspecified; K21.9 Gastro-esophageal reflux disease without esophagitis; E03.9 Hypothyroidism, unspecified; F41.9 Anxiety disorder, unspecified; F32.9 Major depressive disorder, single episode, unspecified; Z82.49 Family history of ischemic heart disease and other diseases of the circulatory system; Z87.19 Personal history of other diseases of the digestive system; Z86.010 Personal history of colon polyps; Z87.891 Personal history of nicotine dependence; Z90.710 Acquired absence of both cervix and uterus; Z86.718 Personal history of other venous thrombosis and embolism
CPT/HCPCS: 73502; 99281

== ENCOUNTER → 2017-05-26 | Outpatient (CLI) | payer MEDICAID, MEDICARE ==
--- NOTE | 2017-05-26 11:44 | Diagnostic Imaging Report ---
PROCEDURE: US Thyroid. TECHNIQUE: Multiple Real-time grayscale images were obtained of the thyroid in various projections. INDICATION: Thyroid nodule. COMPARISON: 06/28/2016. FINDINGS: The right lobe of the thyroid measures 4.1 x 1.2 x 1.1 cm. The left lobe measures 4.1 x 1.6 x 1 cm. There is a nodule in the superior aspect of the left lobe measuring 1.1 cm. A smaller nodule inferiorly measures 0.6 cm. There is also a smaller 0.4 cm nodule. IMPRESSION: There are two stable thyroid nodules on the left. These remain most suspect for adenoma. Neither shows any significant change. There is a new 0.4 cm nodule. An additional six-month followup is recommended to ensure stability. Dictated by: Dictated on workstation # [id number]
== END ==
LOC: RAD 10:33
PROVIDERS: ATTEND Nurse Practitioner Family
DX: E04.2 Nontoxic multinodular goiter (principal)
CPT/HCPCS: 76536

== ENCOUNTER 2017-09-01 05:37 | Outpatient (CLI) | payer MEDICARE ==
[~2017-09-01] VITALS: Ht 165.1 cm; Wt 68.0 kg
[2017-09-01] MEDS ORDERED: OMEP40CA36 PO (13:53)
[2017-09-01] MEDS ORDERED: CLON0.5T PO (13:53)
== END 2017-09-01 14:01 ==
LOC: PREOP 05:37
PROVIDERS: ATTEND Surgery
DX: Z01.818 Encounter for other preprocedural examination (principal); R13.10 Dysphagia, unspecified

== ENCOUNTER 2017-09-03 09:52 | Day surgery (SDC) | payer MEDICARE, MEDICAID ==
[~2017-09-03] VITALS: Ht 165.1 cm; Wt 68.0 kg
[~2017-09-03 09:52] MED LIST changes: +CLON0.5T PO; +OMEP40CA36 PO
[2017-09-03] MEDS ORDERED: NS IV 500 ML 500 ML IV PRN (10:05)
[2017-09-03] MEDS ORDERED: NS IV 500 ML 500 ML ONE ×3 (10:08→14:10)
[2017-09-03] MEDS ORDERED: fentaNYL INJECTION 100 MCG/2 ML AMP IVP PRN (10:15)
[2017-09-03] MEDS ORDERED: BENZOCAINE 20% SPRAY (HURRICANE) 60 ML CAN MT PRN (10:15)
[2017-09-03] MEDS ORDERED: NS IV 500 ML 500 ML IV SCH (10:15)
[2017-09-03] MEDS ORDERED: LIDOCAINE JELLY 2% (XYLOCAINE) 5 ML TUBE MM PRN (10:15)
[2017-09-03] MEDS ORDERED: HURRICAINE EXT TUBE (BENZOCAINE) XX PRN (10:15)
[2017-09-03 10:19] VITALS: BP 103/44
--- NOTE | 2017-09-03 10:19 | Conscious Sedation/ASA ---
Conscious Sedation Pre-Proced Time Reviewed: 10:00 ASA Class: 2 Airway Mallampati Classification: (samish appropriate class) I. II. III, IV Lungs Heart ASA score ASA 1: a normal healthy patient ASA 2: a patient with a mild systemic disease (mid diabetes, controlled hypertension, obesity ASA 3: a patient with a severe systemic disease that limits activity (angina , COPD, prior Myocardial infarction) ASA 4: a patient with an incapacitating disease that is a constant threat to life (CHF, renal failure) ASA 5: a moribund patient not expected to survive 24 hrs. (ruptured aneurysm) ASA 6: a declared brain patient whose organs are being harvested. For emergent operations, add the letter E after the classification Grade 2 Sedation Plan: Analgesia, Amnesia, Plan communicated to team members, Discussed options with patient/fam, Discussed risks with patient/fam Note The patient is an appropriate candidate to undergo the planned procedure, sedation, and anesthesia. The patient immediately re-assessed prior to indication. BRAD LUIS MD Sep 03, 2017 10:19 am
--- NOTE | 2017-09-03 10:20 | Progress Note-Pre Operative ---
Pre-Operative Progress Note H&P Reviewed The H&P was reviewed, patient examined and no changes noted. Date Seen by Provider: Sep 03, 2017 Time Seen by Provider: 10:00 Date H&P Reviewed: Sep 03, 2017 Time H&P Reviewed: 10:00 Pre-Operative Diagnosis: dysphagia, hx of colon polyp BRAD LUIS MD Sep 03, 2017 10:20 am
[2017-09-03] MEDS ORDERED: ACETAMINOPHEN 325 MG TABLET PO PRN (10:30)
[2017-09-03] MEDS ORDERED: ONDANSETRON 4 MG/2 ML (SDV) Z0FRAN IV PRN (10:30)
[2017-09-03] MEDS ORDERED: HYDROcodone/APAP 5 MG/325 MG (LORTAB) TAB PO PRN (10:30)
[2017-09-03] MEDS ORDERED: morphine INJ 10 MG/ML 1ML (SYR OR VIAL) IV PRN (10:30)
[2017-09-03] MEDS ORDERED: MIDAZOLAM 2 MG/2 ML (VERSED) VIAL ONE ×5 (12:18→12:19)
[2017-09-03] MEDS ORDERED: LIDOCAINE JELLY 2% (XYLOCAINE) 5 ML TUBE ONE (12:18)
[2017-09-03] MEDS ORDERED: fentaNYL INJECTION 100 MCG/2 ML AMP ONE (12:18)
[2017-09-03] MEDS ORDERED: HURRICAINE EXT TUBE (BENZOCAINE) ONE (12:19)
[2017-09-03] MEDS: MIDAZOLAM 2 MG/2 ML (VERSED) VIAL IVP PRN ×2 (13:02→13:06)
[2017-09-03] MEDS ORDERED: PROPOFOL INJECTION 50 ML IV ONE (13:24)
[2017-09-03 14:25] VITALS: BP 108/54
--- NOTE | 2017-09-03 14:26 | Progress Note-Post Operative ---
Post-Operative Progess Note Surgeon (s)/Behavioral Technician (s) Surgeon BRAD LUIS MD Behavioral Technician: none Pre-Operative Diagnosis dysphagia, hx of colon polyp Post-Operative Diagnosis reflux esophagitis(class B), small HH(2cm), mod-severe gastritis. mild chronic stage 1 ext and int hemorrhoids. Procedure & Operative Findings Date of Procedure 09/03/17 Procedure Performed/Findings EGD with bx. Colonoscopy. Anesthesia Type CS Estimated Blood Loss Estimated blood loss (mL): minimal Specimens/Packing Specimens Removed GE jxn, antrum BRAD LUIS MD Sep 03, 2017 2:26 pm
[2017-09-03] MEDS ORDERED: PANT40TA2 PO (14:28)
[2017-09-03] MEDS ORDERED: DICY10CA12 PO (14:28)
--- NOTE | 2017-09-03 14:29 | Discharge Inst-Surgical ---
D/C Lap Instructions-KIDO New, Converted, or Re-Newed RX: RX on Chart Follow Up PRN Activity as tolerated High Fiber Diet 25g or more per day Avoid Alcohol, Caffeine, Spicy Dotsero and Acid foods. Drink 64 fluid oz or more of fluids per day. Symptoms to Report: Fever over 101 degree F, Nausea/Vomiting If any problems/questions: Contact your physician or go to Emergency Room BRAD LUIS MD Sep 03, 2017 2:29 pm
[2017-09-03 14:55] VITALS: BP 110/60
[2017-09-03 15:00] VITALS: BP 110/60
--- NOTE | 2017-09-03 18:03 | OPERATIVE REPORT ---
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 PREOPERATIVE DIAGNOSES: Gastroesophageal reflux disease, dysphagia, screening colonoscopy. POSTOPERATIVE DIAGNOSES: Reflux esophagitis class B. No strictures or ulcerations identified. A small hiatal hernia approximately 2 cm in size. Moderate to severe gastritis towards the stomach antrum with superficial erosions. Chronic stage I external and internal hemorrhoids. Remainder of the colon and rectum were normal. PROCEDURE: EGD with biopsy, colonoscopy. SURGEON: Dr. Luis. ANESTHESIA: Monitored anesthesia care. ESTIMATED BLOOD LOSS: Minimal. FINDINGS: EGD, reflux esophagitis class B. No strictures. Small hiatal hernia approximately 2 cm in size. Moderate to severe gastritis more towards the antrum of the stomach with superficial erosions. Pylorus and duodenum appeared normal with no distal obstructions. Colonoscopy: Chronic stage I external and internal hemorrhoids, not actively edematous nor inflamed and no bleeding. Remainder of the rectum and colon were normal. DISPOSITION: The patient tolerated the procedure well. INDICATIONS: The patient is a 57-year-old female who we have seen before in the past. We have seen her in 2016 for dysphagia. She did undergo an EGD as well as biopsy. She was found to have a mild lower esophageal stricture and underwent a balloon dilatation. A small hiatal hernia 2 cm in size as well as a moderate gastritis was also noted. Biopsies were negative for H. pylori as well as negative for Rivas's esophagus. She states that her reflux type of symptoms have worsened as well as her dysphagia type of symptoms. She describes epigastric crampy pain as well as burning sensation. She is also in need of a screening colonoscopy. She states she did have one approximately in 2009 and does have a remote family history of colon cancer with her maternal aunt having the disease. DESCRIPTION OF PROCEDURE: The patient was brought to the endoscopy suite, laid in the left lateral decubitus position. After adequate IV pain and sedating medications and conscious sedation anesthesia, a mouthpiece was applied. The endoscope was placed in the mouth, visualizing the pharynx and hypopharyngeal region. Vocal cords, epiglottis and vallecula identified and appeared to be normal. The endoscope was then gently intubated at the esophageal opening and esophagus insufflated. The endoscope was then advanced to the first, second and third portions of the esophagus at the level of the GE junction, a reflux esophagitis class B identified. There were no ulcers or strictures identified in this region. A biopsy was taken with forceps with visualization of good hemostasis. The endoscope was then easily advanced in the stomach and the endoscope retroflexed, visualizing a small hiatal hernia identified on previous exam approximately 2 cm in size. There was a moderate to severe gastritis more focused at the antrum of the stomach with multiple small superficial erosions. There were no masses or distal obstructions identified. A biopsy was taken of these erosions with forceps with visualization of good hemostasis. The endoscope was then advanced to the pylorus and the first and second portions of the duodenum, which appeared normal with no distal obstructions. The endoscope was then slowly withdrawn while taking a second look and suctioning of residual air with no additional findings. The patient tolerated this portion of the procedure well. We feel that the majority of her symptoms are due to acid hypersecretion and she needs to proceed with the necessary lifestyle and diet accommodation including small and more frequent meals, avoidance of eating at night as well as head elevation while lying supine. She also needs to avoid caffeinated beverages, spicy, greasy and acidic foods. We feel that the omeprazole that she is currently on is not effective and we will recommend and start her on pantoprazole 40 mg daily. Under the same conscious sedation anesthesia, we then proceeded with the colonoscopy portion of the procedure. A digital rectal examination was performed, which revealed chronic stage I external and internal hemorrhoids, not actively edematous nor inflamed and no bleeding. Normal sphincter tone was felt and there were no palpable masses. The endoscope was then intubated to the anus and the rectum gently insufflated. The endoscope was then advanced to the valves of Mora of the rectum with no polyps or any neoplasms identified. The endoscope was then advanced through the sigmoid colon where no diverticulosis identified. We then proceeded through the remainder of the descending, transverse and ascending colon and the cecum. These segments were normal. There were no polyps or any neoplasms identified throughout the colon or rectum. The endoscope was then slowly withdrawn while taking a second look and suctioning of residual air with no additional findings. The patient tolerated the procedure well. We will recommend continued conservative medical management with a high-fiber diet with at least 25 grams of fiber per day as well as at least 64 fluid ounces of water daily to promote soft stools on a daily basis. She does not have a first-degree relative with a history of colon cancer and this colonoscopy appears to be normal. If she does not have any problems, she may wait another 10 years for her next colonoscopy. 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
== END 2017-09-03 15:00 | disposition home or self-care (01) ==
LOC: ENDO 09:52
PROVIDERS: ATTEND Surgery
DX: Z12.11 Encounter for screening for malignant neoplasm of colon (principal); K64.0 First degree hemorrhoids; K21.0 Gastro-esophageal reflux disease with esophagitis; K44.9 Diaphragmatic hernia without obstruction or gangrene; K29.70 Gastritis, unspecified, without bleeding; K25.9 Gastric ulcer, unspecified as acute or chronic, without hemorrhage or perforation; Z80.0 Family history of malignant neoplasm of digestive organs; Z86.010 Personal history of colon polyps; Z87.891 Personal history of nicotine dependence
CPT/HCPCS: 43239; G0105

== ENCOUNTER → 2017-12-18 | Outpatient (CLI) | payer MEDICARE, MEDICAID ==
[~2017-12-18] MED LIST changes: +DICY10CA12 PO; +IOHEXOL 350 MG/ML 100 ML (OMNIPAQUE 350) VIAL IV ONE; +NS 250 ML (IVPB) BAG IV ONE; +PANT40TA2 PO; +SULF1TAB35 PO
--- NOTE | 2017-12-18 10:12 | Diagnostic Imaging Report ---
PROCEDURE: CT abdomen and pelvis with contrast. TECHNIQUE: Multiple contiguous axial images were obtained through the abdomen and pelvis after administration of intravenous contrast. INDICATION: Right lower quadrant abdominal pain with constipation. Comparison is made to study of 12/30/2011. FINDINGS: There is low-density throughout the liver indicating steatosis. Gallbladder is surgically absent. There is no evidence of biliary ductal dilatation. No focal hepatic or splenic lesion is identified. There may be small hiatal hernia. No pancreatic, adrenal gland or renal lesion is identified. There is moderate amount of stool throughout the colon. No pelvic or abdominal free fluid is identified. There is no evidence of pathologic adenopathy. There is mild fluid distention of small bowel loops which is nonspecific. Partially opacified urinary bladder is unremarkable. There is no evidence of focal inflammation or organized fluid collection. IMPRESSION: Hepatic steatosis and moderate diffuse colonic stool burden which may reflect constipation. Otherwise, no obstruction is identified and there is no CT evidence of acute abnormality in the abdomen or pelvis. Dictated by: Dictated on workstation # [id number]
== END ==
LOC: RAD 09:10
PROVIDERS: ATTEND Family Medicine
DX: K76.0 Fatty (change of) liver, not elsewhere classified (principal); K59.00 Constipation, unspecified; Z90.49 Acquired absence of other specified parts of digestive tract
CPT/HCPCS: 74177

== ENCOUNTER → 2018-03-23 | Outpatient (CLI) | payer MEDICARE, MEDICAID ==
[~2018-03-23] MED LIST changes: -IOHEXOL 350 MG/ML 100 ML (OMNIPAQUE 350) VIAL IV ONE; -NS 250 ML (IVPB) BAG IV ONE
--- NOTE | 2018-03-23 14:36 | Diagnostic Imaging Report ---
INDICATION: Thyroid nodule. TECHNIQUE: Thyroid sonography performed in routine fashion. COMPARISON: Compared with 05/26/2017 FINDINGS: The right thyroid lobe measured 3.5 x 1.3 x 1.0 cm and appeared normal. Left thyroid lobe measured 3.6 x 1.6 x 1.0 cm. There are multiple small nodules in the left side, which all appear below a centimeter in size. There is a 5 x 4 mm nodule superiorly, with a 5 x 4 x 8 mm nodule inferiorly. There is a 9 x 9 x 5 mm nodule in the midportion of the gland. Compared to the prior study of 05/26/2017, the findings appear essentially stable. IMPRESSION: Stable small left thyroid nodules. No focal nodules in the right side. Consider continued followup as clinically warranted. Dictated by: Dictated on workstation # [id number]
== END ==
LOC: RAD 12:28
PROVIDERS: ATTEND Otolaryngology Otolaryngology/Facial Plastic Surgery
DX: E04.2 Nontoxic multinodular goiter (principal)
CPT/HCPCS: 76536

== ENCOUNTER → 2018-04-27 | Outpatient (CLI) | payer MEDICARE, MEDICAID ==
--- NOTE | 2018-04-27 13:59 | Diagnostic Imaging Report ---
PROCEDURE: MR imaging of the brain without contrast. TECHNIQUE: Multiplanar, multisequence MR imaging of the brain was performed without contrast. INDICATION: Headaches and left ear pain. COMPARISON: Correlation is made with prior MRI of the brain from 11/30/2013. FINDINGS: Ventricles and sulci are within normal limits. No sulcal effacement, midline shift or hemorrhage is seen. No diffusion restriction is identified. Normal expected flow-voids within the carotid siphons are seen. No acute intra-axial or extra-axial hemorrhage is detected. Corpus callosum is unremarkable. Sella and parasellar structures are unremarkable. There does appear to be some mild mucosal thickening in the sphenoid sinus. IMPRESSION: Unremarkable noncontrast MRI of the brain. No acute feature is detected. Dictated by: Dictated on workstation # [id number]
== END ==
LOC: RAD 12:32
PROVIDERS: ATTEND Family Medicine
DX: H92.02 Otalgia, left ear (principal); R51 Headache
CPT/HCPCS: 70551

== ENCOUNTER → 2018-09-09 | Outpatient (CLI) | payer MEDICARE, MEDICAID ==
--- NOTE | 2018-09-09 14:17 | Diagnostic Imaging Report ---
INDICATION: Pain and lumps in the left breast. COMPARISON: 07/19/2016 and 09/23/2013. TECHNIQUE: 2D and 3D bilateral diagnostic mammography was performed with CAD. BB markers were placed at the areas of pain and lumps in the left breast. FINDINGS: Scattered fibroglandular densities are identified bilaterally. The overall parenchymal pattern is stable bilaterally. No new mass or malignant appearing microcalcifications are seen. Occasional benign calcifications are noted. The axillae are unremarkable. IMPRESSION: No mammographic features suspicious for malignancy are identified. Even so, directed sonographic interrogation of the left breast at the areas of pain and palpable abnormality is recommended and will be performed today. ACR BI-RADS Category 0: Incomplete. (Needs additional imaging evaluation). Result letter will be mailed to the patient. Note: At least 10% of breast cancer is not imaged by mammography. Dictated by: Dictated on workstation # [id number]
--- NOTE | 2018-09-09 14:28 | Diagnostic Imaging Report ---
Indication: Palpable lumps in left breast as well as left breast pain. Correlation made to a diagnostic mammogram earlier same day. Sonographic interrogation to the area of pain and palpable abnormality in the left breast was performed. No sonographic abnormality is seen. No solid or cystic breast mass is seen. Impression: BI-RADS category 1. No sonographic abnormality is identified. Clinical followup is recommended. ACR BI-RADS Category 1: Negative. Dictated by: Dictated on workstation # [id number]
== END ==
LOC: RAD 13:28
PROVIDERS: ATTEND Family Medicine
DX: N63.20 Unspecified lump in the left breast, unspecified quadrant (principal)
CPT/HCPCS: 76642; 77066

== ENCOUNTER → 2019-01-18 | Outpatient (CLI) | payer MEDICARE, MEDICAID ==
[~2019-01-18] MED LIST changes: +CATHETER FLUSH 10 ML SYR IV PRN; +HOLD METFORMIN - RECEIVED CONTRAST 20 ML VIAL IV SCH; +IOHEXOL 350 MG/ML 100 ML (OMNIPAQUE 350) VIAL IV ONE; +NS 100 ML (IVPB) BAG IV ONE
[2019-01-18 12:32] LABS: BUN/CREATININE RATIO 21; GFR ESTIMATED > 60
--- NOTE | 2019-01-18 13:26 | Diagnostic Imaging Report ---
PROCEDURE: CT abdomen and pelvis with contrast, rule out appendicitis. TECHNIQUE: Multiple contiguous axial images were obtained through the abdomen and pelvis after the administration of intravenous contrast. INDICATION: Right-sided back pain. FINDINGS: The previous CT abdomen/pelvis exam of 12/18/2017 failed to show any sign of an acute abnormality of the abdomen or pelvis. On this study, the appendix was not well visualized. The cecum overlies the upper sacrum. The appendix was visualized and does not seem to be abnormally thickened (coronal image 47 of 81). There is no distortion of the periappendiceal fat to suggest acute appendicitis. There is a considerable amount of fecal material throughout the colon. There is no evidence for an obstructive mass. There is no pelvic mass or free fluid collection evident. The uterus is surgically absent. The liver, spleen, pancreas, adrenals, kidneys, aorta and inferior vena cava are unremarkable for an acute abnormality. The gallbladder is surgically absent. The stomach is not well-distended and consequently difficult to assess. The lung bases are clear. The bone windows show no evidence for fracture or for destructive lesion. IMPRESSION: 1. There is no evidence for an acute abnormality of the abdomen and pelvis. In particular, there is no sign of acute appendicitis. 2. There is a considerable amount of fecal material throughout the colon. 3. The gallbladder and uterus are surgically absent. These results were called to Dr. Osman's office. Dictated by: Dictated on workstation # [id number]
== END ==
LOC: RAD 11:36
PROVIDERS: ATTEND Surgery
DX: R10.31 Right lower quadrant pain (principal); M54.9 Dorsalgia, unspecified; Z90.710 Acquired absence of both cervix and uterus; Z90.49 Acquired absence of other specified parts of digestive tract
CPT/HCPCS: 36415; 74177; 82565; 84520

== ENCOUNTER → 2019-04-14 | Outpatient (CLI) | payer MEDICARE, MEDICAID ==
[~2019-04-14] MED LIST changes: -CATHETER FLUSH 10 ML SYR IV PRN; -HOLD METFORMIN - RECEIVED CONTRAST 20 ML VIAL IV SCH; -IOHEXOL 350 MG/ML 100 ML (OMNIPAQUE 350) VIAL IV ONE; -NS 100 ML (IVPB) BAG IV ONE; +OMEP40CA27 PO; -OMEP40CA36 PO; +SIMV10TA26; +SIMV10TA26 PO; -SIMV10TA3; -SIMV10TA3 PO
--- NOTE | 2019-04-14 14:05 | Diagnostic Imaging Report ---
PROCEDURE: US Thyroid. TECHNIQUE: Multiple Real-time grayscale images were obtained of the thyroid in various projections. INDICATION: Multinodular goiter. COMPARISON: 03/23/2018. FINDINGS: The left thyroid lobe measures 4.1 x 0.9 x 1.0 cm and contains three small nodules, the largest of which is hypoechoic but solid in appearance measuring a long axis of 9 mm diameter. These are unchanged from the comparison exam. IMPRESSION: Small subcentimeter stable benign-appearing left lobe nodules. Nonfocal right lobe. Dictated by: Dictated on workstation # [id number]
== END ==
LOC: RAD 12:25
PROVIDERS: ATTEND Otolaryngology Otolaryngology/Facial Plastic Surgery
DX: E04.1 Nontoxic single thyroid nodule (principal)
CPT/HCPCS: 76536

== ENCOUNTER → 2020-04-21 | Outpatient (CLI) | payer MEDICARE, MEDICAID ==
--- NOTE | 2020-04-21 16:40 | Diagnostic Imaging Report ---
INDICATION: Thyroid nodules. TECHNIQUE: Grayscale sonographic images of the thyroid gland. CORRELATION STUDY: 04/14/2019. FINDINGS: RIGHT LOBE: 4.7 x 1.2 x 1.1 cm There is normal echotexture about the right lobe. LEFT LOBE: 4.8 x 1.7 x 0.9 cm. Three small nodules in the left lobe are present. Largest nodule measures 1.4 x 0.9 x 0.8 cm (previously 0.9 x 0.8 x 0.7 cm). This is heterogeneous but predominantly solid with a few small micronodules. Margins are slightly ill-defined. The other two measure up to 6 mm in maximal size and appear cystic. Isthmus appears unremarkable. IMPRESSION: Slight interval increase in size of a dominant, solid nodule left lobe with a few microcalcifications, now measuring 1.4 cm in maximum size. TR-5 Given interval increase in size and appearance, consideration for fine needle aspiration. (Normal gland size: 4-5 x 2 x 2 cm) Dictated by: Dictated on workstation # [id number]
== END ==
LOC: RAD 15:01
PROVIDERS: ATTEND Otolaryngology Otolaryngology/Facial Plastic Surgery
DX: E04.2 Nontoxic multinodular goiter (principal)
CPT/HCPCS: 76536

== ENCOUNTER → 2020-06-01 | Outpatient (CLI) | payer MEDICARE, MEDICAID ==
[~2020-06-01] MED LIST changes: +LIDOCAINE 1% INJ 20 ML 20 ML VIAL INJ ONE
--- NOTE | 2020-06-02 08:07 | Diagnostic Imaging Report ---
INDICATION: Left thyroid nodule. Patient presets for ultrasound guided fine needle aspiration and biopsy. Patient brought to the procedure room placed on the table in the supine position. Ultrasound imaging of the left neck was performed to evaluate appropriate entry site. Left neck was then prepped and draped in usual sterile fashion. Small amount of 1% lidocaine was utilized for local anesthesia. Total of 4 passes were made into the hypoechoic nodule in the lower pole left lobe of the thyroid utilizing 25-gauge needles and fine-needle aspiration technique. A single pass was made with a Rotex needle and Rotex biopsy was performed. Needle was removed and hemostasis was obtained using manual compression. Patient tolerated procedure well and left the department in stable condition. IMPRESSION: Successful left lobe thyroid nodule fine-needle aspiration and Rotex biopsy utilizing ultrasound guidance. Dictated by: Dictated on workstation # [id number]
== END ==
LOC: RAD 14:38
PROVIDERS: ATTEND Otolaryngology Otolaryngology/Facial Plastic Surgery
DX: E04.1 Nontoxic single thyroid nodule (principal)
CPT/HCPCS: 10005

== ENCOUNTER → 2020-07-17 | Outpatient (CLI) | payer MEDICARE, MEDICAID ==
[~2020-07-17] MED LIST changes: -LIDOCAINE 1% INJ 20 ML 20 ML VIAL INJ ONE
[2020-07-17 12:21] LABS: HEMATOCRIT 41 % (35-52); HEMOGLOBIN 13.9 g/dL (11.5-16.0); MEAN CORPUSCULAR HEMOGLOBIN 34 pg (25-34); MEAN CORPUSCULAR HGB CONC 34 g/dL (32-36); MEAN CORPUSCULAR VOLUME 100 fL (80-99); PLATELET COUNT 223 10^3/uL (130-400); WHITE BLOOD COUNT 3.9 10^3/uL (4.3-11.0)
[2020-07-17 12:30] LABS: ALBUMIN 4.5 GM/DL (3.2-4.5); CHLORIDE 104 MMOL/L (98-107); POTASSIUM 4.1 MMOL/L (3.6-5.0); SODIUM 139 MMOL/L (135-145)
[2020-07-17 12:31] LABS: CALCIUM 9.5 MG/DL (8.5-10.1)
[2020-07-17 12:32] LABS: TRIGLYCERIDES 88 MG/DL (<150); VLDL CHOLESTEROL 18 MG/DL (5-40)
[2020-07-17 12:33] LABS: GLUCOSE 98 MG/DL (70-105); TOTAL PROTEIN 7.4 GM/DL (6.4-8.2)
[2020-07-17 12:34] LABS: CARBON DIOXIDE 26 MMOL/L (21-32)
[2020-07-17 12:35] LABS: BILIRUBIN,TOTAL 0.5 MG/DL (0.1-1.0)
[2020-07-17 12:36] LABS: ALKALINE PHOSPHATASE 57 U/L (40-136); CREATININE SERUM 0.81 MG/DL (0.60-1.30); GFR ESTIMATED > 60
[2020-07-17 12:37] LABS: CHOLESTEROL 238 MG/DL (< 200)
[2020-07-17 12:38] LABS: BUN/CREATININE RATIO 12
[2020-07-17 12:39] LABS: HDL CHOLESTEROL 58 MG/DL (40-60)
[2020-07-17 12:40] LABS: ALANINE AMINOTRANSFERASE 23 U/L (0-55)
== END ==
LOC: CARD 11:41
PROVIDERS: ATTEND Family Medicine
DX: R00.2 Palpitations (principal); E04.1 Nontoxic single thyroid nodule
CPT/HCPCS: 36415; 80053; 85027; 93005

== ENCOUNTER 2020-08-18 21:46 | Emergency (ER) | payer MEDICARE, MEDICAID ==
[~2020-08-18] VITALS: Ht 165 cm; Wt 72.5 kg
[~2020-08-18 21:46] MED LIST changes: -OMEP40CA27 PO; +OMEP40CA6 PO
[2020-08-18] MEDS ORDERED: NS IV 500 ML 500 ML IV ONE (22:00)
[2020-08-18] MEDS ORDERED: KETOROLAC 30 MG/ML VIAL IVP ONE (22:00)
[2020-08-18] MEDS ORDERED: PROMETHAZINE INJ 25 MG/ML (PHENERGAN) AMP IVP ONE (22:00)
--- NOTE | 2020-08-18 22:02 | ED Headache ---
General Stated Complaint: EYE PAIN / DIZZY Source: patient Exam Limitations: no limitations History of Present Illness Date Seen by Provider: Aug 18, 2020 Time Seen by Provider: 21:45 Initial Comments Patient to the ER by EMS from home with chief complaint that for the past day she has been experiencing a repeat of her chronic migraine headache that she has had for years. Is not the worst she has ever had. She is not having blindness but is having some visual disturbances in her left eye which she says she gets with her migraine headaches. She says usually she is quite healthy. She notes she does have a cyst behind her left eye that no one will do anything about. She typically follows with Dr. Gusman and recently had a biopsy of a calcified cyst on her thyroid by Dr. Mitchell. She typically takes Tylenol and this helps with her headaches. She did take some about an hour ago and she is starting to feel a little bit of improvement. She now states it is a 6 out of 10. She is having nausea but no vomiting. No fevers chills diarrhea dysuria constipation or abdominal pain. She also feels palpitations from time to time but none presently. She feels dizzy. Moderate to severe gastritis on EGD by Dr. Osman 2017. Small to moderate sized coronary system with mild coronary artery disease but no significant obstructive disease. Normal left ventricular diastolic pressure. History hypertension hyperlipidemia Allergies and Home Medications Allergies Coded Allergies: No Known Drug Allergies (Verified , 09/01/17) Home Medications Cholecalciferol (Vitamin D3) 5,000 Unit Capsule, 5,000 UNIT PO DAILY, (Reported) Clonazepam 0.5 Mg Tablet, 0.5 MG PO TID, (Reported) Cyanocobalamin (Vitamin B-12) 2,000 Mcg Tablet, 2,000 MCG PO DAILY, (Reported) Dicyclomine HCl 10 Mg Capsule, 10 MG PO QID Prescribed by: BRAD OSMAN on 09/03/17 1428 Magnesium 250 Mg Tablet, 250 MG PO DAILY, (Reported) Pantoprazole Sodium 40 Mg Tablet., 40 MG PO DAILY Prescribed by: BRAD OSMAN on 09/03/17 1428 Sulfamethoxazole/Trimethoprim 1 Each Tablet, 1 EACH PO BID Prescribed by: LUCERO LAWS on 10/17/172108 Vitamin E 400 Unit Capsule, 400 UNIT PO DAILY, (Reported) Patient Home Medication List Home Medication List Reviewed: Yes Review of Systems Review of Systems Constitutional: No chills; dizziness; No malaise, No weakness Eyes: See HPI; Denies Blindness; Blurred Vision; Denies Foreign Body Sensation, Denies Inflammation Ears, Nose, Mouth, Throat: denies ear pain, denies ear discharge Respiratory: No cough, No phlegm, No short of breath Cardiovascular: No edema, No Hx of Intervention, No palpitations Gastrointestinal: No abdominal pain, No constipation, No diarrhea; nausea; No vomiting Genitourinary: No hematuria Musculoskeletal: No back pain, No joint pain Psychiatric/Neurological: Anxiety; Denies Depressed All Other Systems Reviewed Negative Unless Noted: Yes Past Mrkidlq-Gbjfjf-Yndcsl Hx Patient Social History Alcohol Use: Denies Use Drug of Choice: Denies Smoking Status: Former Smoker (Denies) Type Used: Cigarettes Former Smoker, Quit: Jun 13, 1983 Recent Hopitalizations: No Immunizations Up To Date Date of Influenza Vaccine: Dec 09, 2016 Seasonal Allergies Seasonal Allergies: Yes Past Medical History Surgeries: Yes Breast, Eye Surgery, Gallbladder, Hysterectomy Respiratory: No Cardiac: Yes Deep Vein Thrombosis Neurological: No Reproductive Disorders: No 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 Sexually Transmitted Disease: No HIV/AIDS: No Gastrointestinal: Yes (history of bowel obstruction) Gastroesophageal Reflux, Chronic Constipation, Polyps, Hiatal Hernia, Ulcer Musculoskeletal: Yes (chronic leg pain) Degenerate Disk Disease Endocrine: Yes (THYROID NODULES) Hypothyroidsim Loss of Vision: Bilateral Hearing Impairment: Denies Cancer: No Psychosocial: Yes Anxiety, Depression Integumentary: No (history of cellulitis) Blood Disorders: Yes Adverse Reaction/Blood Tranf: No (N/A) Family Medical History Heart Disease, Stroke Physical Exam Vital Signs Vital Signs - First Documented 08/18/20 21:50 Temp 36.7 Pulse 64 Resp 22 B/P (MAP) 136/60 (85) Capillary Refill : Height, Weight, BMI Height: 5'5.00" Weight: 150lbs. 0.0oz. [id number]; 25.0 BMI Method:Stated General Appearance: WD/WN, mild distress HEENT: PERRL/EOMI, normal ENT inspection, TMs normal, pharynx normal Neck: non-tender, full range of motion, supple, normal inspection Cardiovascular: normal peripheral pulses, regular rate, rhythm Respiratory: lungs clear, normal breath sounds, no respiratory distress, no accessory muscle use Gastrointestinal: normal bowel sounds, non tender, soft Extremities: normal range of motion, normal capillary refill Psychiatric: alert, oriented x 3 [place] Nerves: normal hearing, normal speech, PERRL Motor/Sensory: no motor deficit, no sensory deficit, other (Able to transfer herself from the gurney to the cot.) Skin: normal color, warm/dry Progress/Results/Core Measures Results/Orders Lab Results Laboratory Tests Test 08/18/20 22:00 Range/Units White Blood Count 6.0 4.3-11.0 10^3/uL Red Blood Count 3.90 3.80-5.11 10^6/uL Hemoglobin 13.1 11.5-16.0 g/dL Hematocrit 39 35-52 % Mean Corpuscular Volume 100 H 80-99 fL Mean Corpuscular Hemoglobin 34 25-34 pg Mean Corpuscular Hemoglobin Concent 34 32-36 g/dL Red Cell Distribution Width 11.6 10.0-14.5 % Platelet Count 213 130-400 10^3/uL Mean Platelet Volume 10.5 9.0-12.2 fL Immature Granulocyte % (Auto) 0 % Neutrophils (%) (Auto) 31 L 42-75 % Lymphocytes (%) (Auto) 53 H 12-44 % Monocytes (%) (Auto) 12 0-12 % Eosinophils (%) (Auto) 4 0-10 % Basophils (%) (Auto) 0 0-10 % Neutrophils # (Auto) 1.8 1.8-7.8 10^3/uL Lymphocytes # (Auto) 3.2 1.0-4.0 10^3/uL Monocytes # (Auto) 0.7 0.0-1.0 10^3/uL Eosinophils # (Auto) 0.3 0.0-0.3 10^3/uL Basophils # (Auto) 0.0 0.0-0.1 10^3/uL Immature Granulocyte # (Auto) 0.0 0.0-0.1 10^3/uL Sodium Level 138 135-145 MMOL/L Potassium Level 4.1 3.6-5.0 MMOL/L Chloride Level 101 98-107 MMOL/L Carbon Dioxide Level 21 21-32 MMOL/L Anion Gap 16 H 5-14 MMOL/L Blood Urea Nitrogen 10 7-18 MG/DL Creatinine 0.82 0.60-1.30 MG/DL Estimat Glomerular Filtration Rate > 60 BUN/Creatinine Ratio 12 Glucose Level 104 70-105 MG/DL Calcium Level 9.3 8.5-10.1 MG/DL Corrected Calcium 9.1 8.5-10.1 MG/DL Total Bilirubin 0.3 0.1-1.0 MG/DL Aspartate Amino Transf (AST/SGOT) 20 5-34 U/L Alanine Aminotransferase (ALT/SGPT) 15 0-55 U/L Alkaline Phosphatase 54 40-136 U/L C-Reactive Protein High Sensitivity 0.07 0.00-0.50 MG/DL Total Protein 7.3 6.4-8.2 GM/DL Albumin 4.2 3.2-4.5 GM/DL Thyroid Stimulating Hormone (TSH) 4.04 0.35-4.94 UIU/ML Free Thyroxine 0.98 0.70-1.48 NG/DL My Orders Orders - OZIEL GOLDMAN Ketorolac Injection (Toradol Injection) (08/18/20 22:00) Promethazine Injection (Phenergan Injec (08/18/20 22:00) Ed Iv/Invasive Line Start (08/18/20 21:55) Ns Iv 500 Ml (Sodium Chloride 0.9%) (08/18/20 22:00) Cbc With Automated Diff (08/18/20 21:55) Comprehensive Metabolic Panel (08/18/20 21:55) Hs C Reactive Protein (08/18/20 21:55) Thyroid Stimulating Hormone (08/18/20 22:04) Free T4 (Free Thyroxine) (08/18/20 22:04) Medications Given in ED Current Medications Medications Dose Ordered Sig/Gray Route Start Time Stop Time Status Last Admin Dose Admin Ketorolac Tromethamine 30 mg ONCE ONCE IVP 08/18/20 22:00 08/18/20 22:01 DC 08/18/20 22:11 30 MG Promethazine HCl 25 mg ONCE ONCE IVP 08/18/20 22:00 08/18/20 22:01 DC 08/18/20 22:11 25 MG Sodium Chloride 500 ml @ 0 mls/hr Q0M ONCE IV 08/18/20 22:00 08/18/20 22:01 DC 08/18/20 22:11 500 MLS/HR Vital Signs/I&O 08/18/20 21:50 Temp 36.7 Pulse 64 Resp 22 B/P (MAP) 136/60 (85) Progress Progress Note #1: Time: 21:59 Progress Note Neurologically intact with a history of the same migraine. We will start with some Toradol and Phenergan as well as 500 cc of fluid and reassess.+ Patient wished us to discuss the results of her recent fine-needle aspirations of the thyroid. Suspicious for but not diagnostic of a follicular neoplasm. She will need to follow-up with the surgeon for further evaluation. We will obtain some TSH T4 Progress Note #2: Time: 23:47 Progress Note Patient's headache was significantly improved after Phenergan and Toradol. The patient does have quite a bit of anxiety and this is probably driving a lot of her concerns tonight. We did discuss some of her other work-up and encouraged her to follow-up with the doctors who are doing the work-up on her thyroid. We discussed that her TSH and free T4 were normal. This was reassuring to the patient. She says she still has a little bit of nausea so we will give her a take-home pack of Zofran. Departure Impression Primary Impression: Migraine Qualified Codes: G43.009 - Migraine without aura, not intractable, without status migrainosus Disposition: 01 HOME, SELF-CARE Condition: Stable Departure-Patient Inst. Decision time for Depature: 23:54 Referrals: MERLYN GUSMAN DO (PCP/Family) Primary Care Physician Patient Instructions: Migraines (DC) Add. Discharge Instructions: Go home and get some rest. Zofran 1 tablet under the tongue every 6 hours as necessary for nausea and/or vomiting. If you still have concerns about your thyroid then you need to return to the doctor who has ordered the tests and continue to pursue work-up as appropriate. OZIEL GOLDMAN Aug 18, 2020 22:02
[2020-08-18 22:12] LABS: BASOPHILS % (AUTO) 0 % (0-10); EOSINOPHILS # (AUTO) 0.3 10^3/uL (0.0-0.3); EOSINOPHILS % (AUTO) 4 % (0-10); HEMATOCRIT 39 % (35-52); HEMOGLOBIN 13.1 g/dL (11.5-16.0); LYMPHOCYTES # (AUTO) 3.2 10^3/uL (1.0-4.0); LYMPHOCYTES % (AUTO) 53 % (12-44); MEAN CORPUSCULAR HEMOGLOBIN 34 pg (25-34); MEAN CORPUSCULAR HGB CONC 34 g/dL (32-36); MEAN CORPUSCULAR VOLUME 100 fL (80-99); MEAN PLATELET VOLUME 10.5 fL (9.0-12.2); MONOCYTES # (AUTO) 0.7 10^3/uL (0.0-1.0); MONOCYTES % (AUTO) 12 % (0-12); NEUTROPHILS # (AUTO) 1.8 10^3/uL (1.8-7.8); NEUTROPHILS % (AUTO) 31 % (42-75); PLATELET COUNT 213 10^3/uL (130-400)
[2020-08-18 22:23] LABS: ALBUMIN 4.2 GM/DL (3.2-4.5)
[2020-08-18 22:24] LABS: CHLORIDE 101 MMOL/L (98-107); POTASSIUM 4.1 MMOL/L (3.6-5.0); SODIUM 138 MMOL/L (135-145)
[2020-08-18 22:25] LABS: CALCIUM 9.3 MG/DL (8.5-10.1)
[2020-08-18 22:26] LABS: GLUCOSE 104 MG/DL (70-105); TOTAL PROTEIN 7.3 GM/DL (6.4-8.2)
[2020-08-18 22:27] LABS: CARBON DIOXIDE 21 MMOL/L (21-32)
[2020-08-18 22:28] LABS: BILIRUBIN,TOTAL 0.3 MG/DL (0.1-1.0)
[2020-08-18 22:29] LABS: ALKALINE PHOSPHATASE 54 U/L (40-136)
[2020-08-18 22:30] LABS: CREATININE SERUM 0.82 MG/DL (0.60-1.30); GFR ESTIMATED > 60
[2020-08-18 22:31] LABS: BUN/CREATININE RATIO 12
[2020-08-18 22:33] LABS: ALANINE AMINOTRANSFERASE 15 U/L (0-55)
[2020-08-18 22:53] LABS: FREE T4 (FREE THYROXINE) 0.98 NG/DL (0.70-1.48)
[2020-08-18] MEDS ORDERED: RX-ONDANSETRON 4 MG ODT (ZOFRAN) PPK #4 PO STA (23:55)
[2020-08-19 00:06] VITALS: BP 137/62
== END 2020-08-19 00:05 | disposition home or self-care (01) ==
LOC: EDUNIT# 21:46 → ER 21:47
DX: G43.909 Migraine, unspecified, not intractable, without status migrainosus (principal); K21.9 Gastro-esophageal reflux disease without esophagitis; F41.9 Anxiety disorder, unspecified; Z79.899 Other long term (current) drug therapy
CPT/HCPCS: 36415; 80053; 84439; 84443; 85025; 86141

== ENCOUNTER → 2020-08-24 | Outpatient (CLI) | payer MEDICARE, MEDICAID ==
[2020-08-24 12:53] LABS: ALANINE AMINOTRANSFERASE 24 U/L (0-55); ALBUMIN 4.3 GM/DL (3.2-4.5); ALKALINE PHOSPHATASE 50 U/L (40-136); BILIRUBIN,TOTAL 0.3 MG/DL (0.1-1.0); BUN/CREATININE RATIO 18; CALCIUM 9.5 MG/DL (8.5-10.1); CARBON DIOXIDE 24 MMOL/L (21-32); CHLORIDE 104 MMOL/L (98-107); CHOLESTEROL 255 MG/DL (< 200); CREATININE SERUM 0.77 MG/DL (0.60-1.30); GFR ESTIMATED > 60; GLUCOSE 93 MG/DL (70-105); HDL CHOLESTEROL 52 MG/DL (40-60); POTASSIUM 4.2 MMOL/L (3.6-5.0); SODIUM 137 MMOL/L (135-145); TOTAL PROTEIN 7.1 GM/DL (6.4-8.2); TRIGLYCERIDES 129 MG/DL (<150); VLDL CHOLESTEROL 26 MG/DL (5-40)
== END ==
LOC: CARD 12:30
PROVIDERS: ATTEND Physician Assistant
DX: I10 Essential (primary) hypertension (principal); I25.10 Atherosclerotic heart disease of native coronary artery without angina pectoris; E78.2 Mixed hyperlipidemia
CPT/HCPCS: 36415; 80053; 80061; 93306

== ENCOUNTER 2020-10-31 05:31 | Outpatient (RCR) | payer MEDICARE, MEDICAID ==
[~2020-10-31] VITALS: Ht 165.1 cm; Wt 71.9 kg
[~2020-10-31 05:31] MED LIST changes: +CLON1TAB27 PO; +OMEP-401 PO; -SULF1TAB35 PO; +SULF1TAB38 PO
[2020-11-01] MEDS ORDERED: PANT40TA2 PO (11:20)
== END 2020-10-31 08:42 | disposition home or self-care (01) ==
LOC: PREOP 05:31
PROVIDERS: ATTEND Surgery
DX: Z01.818 Encounter for other preprocedural examination (principal); R13.10 Dysphagia, unspecified; Z20.822 Contact with and (suspected) exposure to COVID-19
CPT/HCPCS: 87635

== ENCOUNTER → 2020-11-01 | Day surgery (SDC) | payer MEDICARE, MEDICAID ==
[~2020-11-01] VITALS: Ht 165.1 cm; Wt 71.9 kg
[~2020-11-01] MED LIST changes: +HURRICAINE EXT TUBE (BENZOCAINE) XX PRN; +LACTATED RINGERS 1,000 ML IV ONE; +LACTATED RINGERS 1,000 ML IV STA; +LIDOCAINE JELLY 2% 6 ML SYRINGE MM PRN; +MIDAZOLAM 2 MG/2 ML (VERSED) VIAL ONE; +ONDANSETRON 4 MG (ZOFRAN) ORAL DISSOLVE TAB PO PRN; +ONDANSETRON 4 MG/2 ML (SDV) Z0FRAN IVP PRN; +proPOfol 200 MG/20 ML (DIPRIVAN) VIAL IV ONE
[2020-11-01 10:55] VITALS: BP 107/56
--- NOTE | 2020-11-01 11:19 | Progress Note-Pre Operative ---
Pre-Operative Progress Note H&P Reviewed The H&P was reviewed, patient examined and no changes noted. Date Seen by Provider: Nov 01, 2020 Time Seen by Provider: 11:15 Date H&P Reviewed: Nov 01, 2020 Time H&P Reviewed: 11:15 Pre-Operative Diagnosis: dysphagia BRAD LUIS MD Nov 01, 2020 11:19
--- NOTE | 2020-11-01 11:21 | Discharge Inst-Surgical ---
D/C Lap Instructions-KIDO New, Converted, or Re-Newed RX: RX on Chart Follow Up Activity as tolerated High Fiber Diet 25g or more per day Avoid Alcohol, Caffeine, Spicy [place] and Acid foods. Drink 64 fluid oz or more of fluids per day. Symptoms to Report: Fever over 101 degree F, Nausea/Vomiting If any problems/questions: Contact your physician or go to Emergency Room BRAD LUIS MD Nov 01, 2020 11:21
[2020-11-01 12:45] VITALS: BP 132/60
[2020-11-01 12:50] VITALS: BP 128/60
--- NOTE | 2020-11-01 12:51 | Progress Note-Post Operative ---
Post-Operative Progess Note Surgeon (s)/Music Orchestrator (s) Surgeon BRAD LUIS MD Music Orchestrator: none Pre-Operative Diagnosis dysphagia Post-Operative Diagnosis reflux esophagitis(stage 2), mild dist esoph stricture, moderate gastritis. Procedure & Operative Findings Date of Procedure 11/01/20 Procedure Performed/Findings EGD with bx and balloon dilatation. Anesthesia Type mac Estimated Blood Loss Estimated blood loss (mL): minimal Specimens/Packing Specimens Removed ge jxn, antrum BRAD LUIS MD Nov 01, 2020 12:51
--- NOTE | 2020-11-01 12:54 | Anesthesia-General Post-Op ---
MAC Patient Condition Mental Status/LOC: Same as Preop Cardiovascular: Satisfactory Nausea/Vomiting: Absent Respiratory: Satisfactory Pain: Controlled Complications: Absent Post Op Complications Complications None Follow Up Care/Instructions Patient Instructions None needed. Anesthesiology Discharge Order Discharge Order Patient is doing well, no complaints, stable vital signs, no apparent adverse anesthesia problems. LULY GARIBAY DO Nov 01, 2020 12:54
[2020-11-01 13:20] VITALS: BP 115/58
[2020-11-01 13:30] VITALS: BP 115/58
--- NOTE | 2020-11-01 15:23 | OPERATIVE REPORT ---
DATE OF SERVICE: 11/01/2020 ATTENDING PRIMARY CARE PHYSICIAN: Troy Galicia DO. PREOPERATIVE DIAGNOSES: Gastroesophageal reflux disease and dysphagia. POSTOPERATIVE DIAGNOSES: Reflux esophagitis stage II, mild distal esophageal stricture, no hiatal hernia, moderate gastritis and no distal obstructions. PROCEDURES PERFORMED: EGD with biopsy and balloon dilatation. SURGEON: Brad Luis MD. ANESTHESIA: Monitored anesthesia care. ESTIMATED BLOOD LOSS: Minimal. FINDINGS: Reflux esophagitis stage II, mild distal esophageal stricture, no hiatal hernia, moderate gastritis and no distal obstructions. DISPOSITION: The patient tolerated the procedure well. INDICATIONS FOR PROCEDURE: The patient is a 60-year-old female known to us. We have done previous upper and lower endoscopies on her before in the past. We had seen her in 2016 for dysphagia and was found to have a mild distal esophageal stricture and underwent a balloon dilatation. She states, in the past several months, she has had dysphagia and also has developed an intermittent sore throat and hoarseness of voice. She is currently on omeprazole. DESCRIPTION OF PROCEDURE: The patient was brought to the endoscopy suite and laid in the left lateral decubitus position. After adequate IV pain and sedative medications and monitored anesthesia care, the mouthpiece was applied. The endoscope was then placed in the mouth, visualizing the pharynx and hypopharyngeal region. Vocal cords, epiglottis and vallecula identified and appeared to be normal. The endoscope was then gently intubated, the esophageal opening and esophagus insufflated. Endoscope was then advanced to the first, second and third portion of the esophagus. At the level of the GE junction, a reflux esophagitis stage II identified. There was a mild distal esophageal stricture also identified. A biopsy was taken with the forceps with visualization of good hemostasis. The endoscope was then advanced in the stomach and endoscope retroflexed, visualizing no significant hiatal hernia. There was a moderate gastritis more towards the stomach antrum. No formal ulcerations, polyps or any neoplasms. A biopsy was taken of the antrum to rule out H. pylori with visualization of good hemostasis. The endoscope was then advanced to the pylorus and the first and second portion of the duodenum, which appeared normal with no distal obstructions. The balloon was then placed in the stomach and pulled back to the area of the stricture. We then proceeded in a stepwise fashion from 2, then to 4 atmospheres of pressure. We did come across moderate resistance and left this in place for approximately 60 seconds. This equals approximately 19 mm in luminal diameter. The balloon was then desufflated and removed with visualization of good hemostasis as well as no mucosal tears. Endoscope was then slowly withdrawn while taking a second look and suctioning of residual air with no additional findings. The patient tolerated the procedure well. We will recommend the necessary lifestyle and diet accommodation including small and more frequent meals, avoiding eating at night as well as head elevation while lying supine. She also needs to avoid caffeinated beverages, spicy, greasy and acidic foods. 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 Job ID: [id number] DocumentID: [id number] Dictated Date: 11/01/2020 12:46:16 Boarding Kennel Or Cattery Operator Date: 11/01/2020 15:22:09 Dictated By: BRAD LUIS MD
== END ==
LOC: ENDO 10:36
PROVIDERS: ATTEND Surgery
DX: K21.00 Gastro-esophageal reflux disease with esophagitis, without bleeding (principal); K22.2 Esophageal obstruction; K29.70 Gastritis, unspecified, without bleeding; K31.89 Other diseases of stomach and duodenum; F32.9 Major depressive disorder, single episode, unspecified; F41.9 Anxiety disorder, unspecified; E78.5 Hyperlipidemia, unspecified; M19.90 Unspecified osteoarthritis, unspecified site; J32.9 Chronic sinusitis, unspecified; Z79.899 Other long term (current) drug therapy

== ENCOUNTER → 2020-12-04 | Outpatient (CLI) | payer MEDICARE, MEDICAID ==
[~2020-12-04] MED LIST changes: -HURRICAINE EXT TUBE (BENZOCAINE) XX PRN; -LACTATED RINGERS 1,000 ML IV ONE; -LACTATED RINGERS 1,000 ML IV STA; -LIDOCAINE JELLY 2% 6 ML SYRINGE MM PRN; -MIDAZOLAM 2 MG/2 ML (VERSED) VIAL ONE; -ONDANSETRON 4 MG (ZOFRAN) ORAL DISSOLVE TAB PO PRN; -ONDANSETRON 4 MG/2 ML (SDV) Z0FRAN IVP PRN; -proPOfol 200 MG/20 ML (DIPRIVAN) VIAL IV ONE
--- NOTE | 2020-12-04 18:22 | Diagnostic Imaging Report ---
PROCEDURE: US Thyroid. TECHNIQUE: Multiple real-time grayscale images were obtained of the thyroid in various projections. INDICATION: Follow-up of thyroid nodules on the left. Comparison with previous ultrasound dated 04/21/2020. FINDINGS: The left lobe measures 4.6 x 1.2 x 1.3 cm. The heterogeneous solid relatively isoechoic nodule with slightly ill-defined margins in the mid portion is again identified. This appears to be slightly smaller today measuring approximately 1 x 1 x 1 cm. There are again noted a few punctate calcifications. Additional smaller ovoid well-circumscribed slightly hypoechoic nodule present superiorly measuring 4 x 3 mm, wider than tall. An additional similar-appearing nodule noted inferiorly measuring 6 x 3 mm, wider than tall. The right lobe measures 3.5 x 1.3 x 1.6 cm and shows no nodules. IMPRESSION: Multiple nodules in the left lobe are again identified. The largest nodule appears slightly smaller today with no new nodules identified. Would recommend a one-year ultrasound follow-up. TI-RADS 5. Dictated by: Dictated on workstation # [id number]
== END ==
LOC: RAD 12:00
PROVIDERS: ATTEND Otolaryngology Otolaryngology/Facial Plastic Surgery
DX: E04.2 Nontoxic multinodular goiter (principal)
CPT/HCPCS: 76536

== ENCOUNTER 2021-01-24 21:15 | Emergency (ER) | payer MEDICARE, MEDICAID ==
[~2021-01-24] VITALS: Ht 165 cm; Wt 66.0 kg
[2021-01-24] MEDS ORDERED: ONDANSETRON 4 MG/2 ML (SDV) Z0FRAN IVP ONE (21:30)
[2021-01-24] MEDS ORDERED: NS IV 1000 ML 1,000 ML IV SCH (21:30)
--- NOTE | 2021-01-24 21:33 | ED Abdominal Pain ---
General Chief Complaint: Abdominal/GI Problems Stated Complaint: RLQ PAIN Source of Information: Patient Exam Limitations: No Limitations History of Present Illness Date Seen by Provider: Jan 24, 2021 Time Seen by Provider: 21:31 Initial Comments Patient is a 60-year-old female who presents ED with right lower quadrant abdominal pain. Pain has been constant with intermittent sharp pain with radiation to right flank. She states she was diagnosed with UTI 2 weeks ago was placed on antibiotics with some improvement. She did have urinary symptoms then with minimal burning with urination at this time. She is concerned for appendicitis. She reports history of total hysterectomy, cholecystectomy. She reports nausea without vomiting. Associated diarrhea without any blood or mucus. History of gastritis. Denies fever, chills, headache, dizziness, chest pain or shortness of breath. Patient appears anxious. She states she has been taken Tylenol without much improvement. Refusing pain medication at this time. Pain appears is exacerbated with movement or eating. Allergies and Home Medications Allergies Coded Allergies: No Known Drug Allergies (Verified , 09/01/17) Patient Home Medication List Home Medication List Reviewed: Yes Cephalexin (Cephalexin) 500 Mg Tablet, 500 MG PO BID Prescribed by: CHIQUI BLAIR on 01/24/21 2217 Clonazepam (Clonazepam) 1 Mg Tab.rapdis, 1 MG PO BID, (Reported) Entered as Reported by: MIHAELA PEREZ on 10/24/20 1622 Omeprazole (Omeprazole) 20 Mg Tab.rap.dr, 20 MG PO DAILY, (Reported) Entered as Reported by: MIHAELA PEREZ on 10/24/20 1622 Pantoprazole Sodium (Protonix) 40 Mg Tablet.dr, 40 MG PO DAILY Prescribed by: BRAD LUIS on 11/01/20 1120 Review of Systems Review of Systems Constitutional: No chills, No diaphoresis, No dizziness, No malaise, No weakness EENTM: No Eye Pain, No Mouth Pain Respiratory: Denies Cough, Denies SOA With Exertion, Denies Wheezing Cardiovascular: Denies See HPI, Denies Chest Pain, Denies Lightheadedness Gastrointestinal: Abdominal Pain, Diarrhea, Nausea; Denies Vomiting Genitourinary: Burning; Denies Frequency; Flank Pain; Denies Hematuria Musculoskeletal: back pain; No joint pain Skin: No change in color, No change in hair/nails All Other Systems Reviewed Negative Unless Noted: Yes Past Bmdvaqr-Ugphmd-Gcfyjn Hx Immunizations Up To Date First/Initial COVID19 Vaccinat: APRIL 2020 Seasonal Allergies Seasonal Allergies: Yes Past Medical History Surgeries: Yes Breast, Eye Surgery, Gallbladder, Hysterectomy Respiratory: No Cardiac: Yes Deep Vein Thrombosis Neurological: No Reproductive Disorders: No 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 Sexually Transmitted Disease: No HIV/AIDS: No Gastrointestinal: Yes (history of bowel obstruction) Gastroesophageal Reflux, Chronic Constipation, Polyps, Hiatal Hernia, Ulcer Musculoskeletal: Yes (chronic leg pain) Degenerate Disk Disease Endocrine: Yes (THYROID NODULES) Hypothyroidsim Loss of Vision: Bilateral Hearing Impairment: Denies Cancer: No Psychosocial: Yes Anxiety, Depression Integumentary: No (history of cellulitis) Blood Disorders: Yes Adverse Reaction/Blood Tranf: No (N/A) Family Medical History Heart Disease, Stroke Physical Exam Vital Signs Vital Signs - First Documented 01/24/21 21:25 Temp 36.5 Pulse 60 Resp 20 B/P (MAP) 133/57 (82) Pulse Ox 97 O2 Delivery Room Air Capillary Refill : Height/Weight/BMI Height: 5'5.00" Weight: 150lbs. 0.0oz. 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, no motor/sensory deficits, alert, normal mood/affect, oriented x 3 Skin: normal color, warm/dry Progress/Results/Core Measures Results/Orders Lab Results Laboratory Tests Test 01/24/21 21:34 01/24/21 21:36 Range/Units White Blood Count 5.1 4.3-11.0 10^3/uL Red Blood Count 3.99 3.80-5.11 10^6/uL Hemoglobin 13.5 11.5-16.0 g/dL Hematocrit 40 35-52 % Mean Corpuscular Volume 100 H 80-99 fL Mean Corpuscular Hemoglobin 34 25-34 pg Mean Corpuscular Hemoglobin Concent 34 32-36 g/dL Red Cell Distribution Width 11.7 10.0-14.5 % Platelet Count 207 130-400 10^3/uL Mean Platelet Volume 10.6 9.0-12.2 fL Immature Granulocyte % (Auto) 0 % Neutrophils (%) (Auto) 38 L 42-75 % Lymphocytes (%) (Auto) 50 H 12-44 % Monocytes (%) (Auto) 9 0-12 % Eosinophils (%) (Auto) 2 0-10 % Basophils (%) (Auto) 1 0-10 % Neutrophils # (Auto) 1.9 1.8-7.8 10^3/uL Lymphocytes # (Auto) 2.5 1.0-4.0 10^3/uL Monocytes # (Auto) 0.5 0.0-1.0 10^3/uL Eosinophils # (Auto) 0.1 0.0-0.3 10^3/uL Basophils # (Auto) 0.0 0.0-0.1 10^3/uL Immature Granulocyte # (Auto) 0.0 0.0-0.1 10^3/uL Sodium Level 137 135-145 MMOL/L Potassium Level 3.8 3.6-5.0 MMOL/L Chloride Level 101 98-107 MMOL/L Carbon Dioxide Level 24 21-32 MMOL/L Anion Gap 12 5-14 MMOL/L Blood Urea Nitrogen 10 7-18 MG/DL Creatinine 0.85 0.60-1.30 MG/DL Estimat Glomerular Filtration Rate 68 BUN/Creatinine Ratio 12 Glucose Level 101 70-105 MG/DL Calcium Level 9.8 8.5-10.1 MG/DL Corrected Calcium 9.5 8.5-10.1 MG/DL Total Bilirubin 0.3 0.1-1.0 MG/DL Aspartate Amino Transf (AST/SGOT) 27 5-34 U/L Alanine Aminotransferase (ALT/SGPT) 21 0-55 U/L Alkaline Phosphatase 53 40-136 U/L Total Protein 7.5 6.4-8.2 GM/DL Albumin 4.4 3.2-4.5 GM/DL Lipase 72 8-78 U/L Urine Color YELLOW Urine Clarity CLEAR Urine pH 6.0 5-9 Urine Specific [place] <=1.005 1.016-1.022 Urine Protein NEGATIVE NEGATIVE Urine Glucose (UA) NEGATIVE NEGATIVE Urine Ketones NEGATIVE NEGATIVE Urine Nitrite NEGATIVE NEGATIVE Urine Bilirubin NEGATIVE NEGATIVE Urine Urobilinogen 0.2 < = 1.0 MG/DL Urine Leukocyte Esterase 2+ H NEGATIVE Urine RBC (Auto) NEGATIVE NEGATIVE Urine RBC NONE /HPF Urine WBC 5-10 H /HPF Urine Squamous Epithelial Cells 0-2 /HPF Urine Crystals NONE /LPF Urine Bacteria TRACE /HPF Urine Casts NONE /LPF Urine Mucus NEGATIVE /LPF Urine Culture Indicated YES Micro Results Microbiology 01/24/21 Urine Culture - Final, Complete NO GROWTH My Orders Orders - KENDRA PATEL Cbc With Automated Diff (01/24/21 21:29) Comprehensive Metabolic Panel (01/24/21 21:29) Lipase (01/24/21 21:29) Ct Abdomen/Pelvis W (01/24/21 21:29) Ns Iv 1000 Ml (Sodium Chloride 0.9%) (01/24/21 21:30) Ondansetron Injection (Zofran Injectio (01/24/21 21:30) Ua Culture If Indicated (01/24/21 21:29) Urine Culture (01/24/21 21:36) Iohexol Injection (Omnipaque 350 Mg/Ml 1 (01/24/21 23:00) Received Contrast (Hold Metformin- Contr (01/24/21 23:00) Ns (Ivpb) (Sodium Chloride 0.9% Ivpb Bag (01/24/21 23:00) Medications Given in ED Vital Signs/I&O 01/24/21 01/24/21 21:25 23:07 Temp 36.5 36.5 Pulse 60 61 Resp 20 18 B/P (MAP) 133/57 (82) 105/47 Pulse Ox 97 96 O2 Delivery Room Air Room Air Departure Communication (Admissions) Patient lab work was otherwise unremarkable. Urinalysis concerning for potential UTI. She states she was recently diagnosed with UTI and was placed on antibiotics. Culture pending. Will discharge with Keflex. CT Abd and pelvis shows moderate stool noted in the cecum. Patient refused any pain medication. She did have right lower quadrant tenderness which may be associated with her constipation. Discussed laxatives at home. No peritoneal symptoms or surgical abdomen. Vital signs stable. Discussed outpatient follow-up. If any worsening symptom strongly recommend return back to ED for further evaluation. Impression Primary Impression: Abdominal pain Disposition: HOME, SELF-CARE Condition: Stable Departure-Patient Inst. Decision time for Depature: 23:00 Referrals: MERLYN GUSMAN DO (PCP/Family) Primary Care Physician Patient Instructions: Abdominal Pain, Adult ED Add. Discharge Instructions: Recommend laxatives at home. Follow-up your PCP in 2 to 3 days for reevaluation. All discharge instructions reviewed with patient and/or family. Voiced understanding. Scripts Cephalexin (Cephalexin) 500 Mg Tablet 500 MG PO BID for 7 Days, #14 TAB Prov: KENDRA PATEL 01/24/21 KENDRA PATEL Jan 24, 2021 21:33
[2021-01-24 21:47] LABS: BILIRUBIN,URINE NEGATIVE (NEGATIVE); CLARITY,URINE CLEAR; COLOR,URINE YELLOW; GLUCOSE, URINE (UA) NEGATIVE (NEGATIVE); KETONES,URINE NEGATIVE (NEGATIVE); LEUKOCYTE ESTERASE ,URINE 2+ (NEGATIVE); NITRITE,URINE NEGATIVE (NEGATIVE); PROTEIN,URINE NEGATIVE (NEGATIVE)
[2021-01-24 21:54] LABS: ALBUMIN 4.4 GM/DL (3.2-4.5)
[2021-01-24 21:55] LABS: POTASSIUM 3.8 MMOL/L (3.6-5.0)
[2021-01-24 21:56] LABS: CALCIUM 9.8 MG/DL (8.5-10.1)
[2021-01-24 21:57] LABS: BASOPHILS % (AUTO) 1 % (0-10); EOSINOPHILS # (AUTO) 0.1 10^3/uL (0.0-0.3); EOSINOPHILS % (AUTO) 2 % (0-10); HEMATOCRIT 40 % (35-52); HEMOGLOBIN 13.5 g/dL (11.5-16.0); LYMPHOCYTES # (AUTO) 2.5 10^3/uL (1.0-4.0); LYMPHOCYTES % (AUTO) 50 % (12-44); MEAN CORPUSCULAR HEMOGLOBIN 34 pg (25-34); MEAN CORPUSCULAR HGB CONC 34 g/dL (32-36); MEAN CORPUSCULAR VOLUME 100 fL (80-99); MEAN PLATELET VOLUME 10.6 fL (9.0-12.2); MONOCYTES # (AUTO) 0.5 10^3/uL (0.0-1.0); MONOCYTES % (AUTO) 9 % (0-12); NEUTROPHILS # (AUTO) 1.9 10^3/uL (1.8-7.8); NEUTROPHILS % (AUTO) 38 % (42-75); PLATELET COUNT 207 10^3/uL (130-400); TOTAL PROTEIN 7.5 GM/DL (6.4-8.2); WHITE BLOOD COUNT 5.1 10^3/uL (4.3-11.0)
[2021-01-24 21:59] LABS: BILIRUBIN,TOTAL 0.3 MG/DL (0.1-1.0)
[2021-01-24 22:01] LABS: CREATININE SERUM 0.85 MG/DL (0.60-1.30)
[2021-01-24 22:04] LABS: BACTERIA,URINE TRACE /HPF; SQUAMOUS EPITHELIAL CELL,UR 0-2 /HPF
[2021-01-24] MEDS ORDERED: CEPH500T PO (22:17)
--- NOTE | 2021-01-24 22:52 | Diagnostic Imaging Report ---
PROCEDURE: CT abdomen and pelvis with contrast. TECHNIQUE: Multiple contiguous axial images were obtained through the abdomen and pelvis after administration of intravenous contrast. Auto Exposure Controls were utilized during the CT exam to meet ALARA standards for radiation dose reduction. All CT scans use one or more of the following dose optimizing techniques: automated exposure control, MA and/or KvP adjustment based on patient size and exam type or iterative reconstruction. INDICATION: Right lower quadrant pain. Lung bases are clear. Liver appears normal. Gallbladder is surgically absent. Pancreas is normal. Spleen is not enlarged. Kidneys and adrenals appear normal. Small bowel is not dilated. The appendix is normal. Colon is unremarkable. Uterus is surgically absent. Urinary bladder appears normal. The cecum is deep in the pelvis. IMPRESSION: No acute abnormality seen in the abdomen or pelvis. The cecum is positioned deeply in the pelvis and has moderate fecal retention within it. Dictated by: Dictated on workstation # [id number]
[2021-01-24] MEDS ORDERED: IOHEXOL 350 MG/ML 100 ML (OMNIPAQUE 350) VIAL IV ONE (23:00)
[2021-01-24] MEDS ORDERED: NS 100 ML (IVPB) BAG IV ONE (23:00)
[2021-01-24] MEDS ORDERED: HOLD METFORMIN - RECEIVED CONTRAST 20 ML VIAL IV SCH (23:00)
[2021-01-24 23:07] VITALS: BP 105/47
== END 2021-01-24 23:07 | disposition home or self-care (01) ==
LOC: EDUNIT# 21:15 → ER 21:17
DX: R10.31 Right lower quadrant pain (principal); K21.9 Gastro-esophageal reflux disease without esophagitis; F41.9 Anxiety disorder, unspecified; Z79.899 Other long term (current) drug therapy
CPT/HCPCS: 36415; 74177; 80053; 81000; 83690; 85025; 87088

== ENCOUNTER 2021-06-16 05:27 | Emergency (ER) | payer MEDICARE, MEDICAID ==
[~2021-06-16] VITALS: Ht 163 cm; Wt 67.0 kg
[~2021-06-16 05:27] MED LIST changes: +CEPH500T PO; -MAGN250T2 PO; +MAGN250T31 PO
[2021-06-16 05:41] LABS: BASOPHILS % (AUTO) 1 % (0-10); EOSINOPHILS # (AUTO) 0.1 10^3/uL (0.0-0.3); EOSINOPHILS % (AUTO) 2 % (0-10); HEMATOCRIT 37 % (35-52); HEMOGLOBIN 12.6 g/dL (11.5-16.0); LYMPHOCYTES # (AUTO) 2.1 10^3/uL (1.0-4.0); LYMPHOCYTES % (AUTO) 53 % (12-44); MEAN CORPUSCULAR HEMOGLOBIN 34 pg (25-34); MEAN CORPUSCULAR HGB CONC 34 g/dL (32-36); MEAN CORPUSCULAR VOLUME 100 fL (80-99); MEAN PLATELET VOLUME 9.8 fL (9.0-12.2); MONOCYTES # (AUTO) 0.4 10^3/uL (0.0-1.0); MONOCYTES % (AUTO) 10 % (0-12); NEUTROPHILS # (AUTO) 1.4 10^3/uL (1.8-7.8); NEUTROPHILS % (AUTO) 34 % (42-75); PLATELET COUNT 224 10^3/uL (130-400)
[2021-06-16] MEDS ORDERED: NITROGLYCERIN 0.4 MG SL TABS BTL 25'S SL PRN (05:45)
[2021-06-16] MEDS ORDERED: ASPIRIN 81 MG CHEW (CHILDREN'S ASA) PO ONE (05:45)
[2021-06-16 05:49] LABS: ALBUMIN 4.4 GM/DL (3.2-4.5)
[2021-06-16 05:50] LABS: POTASSIUM 3.6 MMOL/L (3.6-5.0)
[2021-06-16 05:51] LABS: CALCIUM 9.6 MG/DL (8.5-10.1); INR 1.1 (0.8-1.4); PROTHROMBIN TIME PATIENT 14.2 SEC (12.2-14.7)
[2021-06-16 05:52] LABS: TOTAL PROTEIN 6.9 GM/DL (6.4-8.2)
[2021-06-16 05:54] LABS: BILIRUBIN,TOTAL 0.7 MG/DL (0.1-1.0)
[2021-06-16 05:56] LABS: CREATININE SERUM 0.78 MG/DL (0.60-1.30)
[2021-06-16 05:59] LABS: MAGNESIUM 2.3 MG/DL (1.6-2.4)
[2021-06-16 06:01] LABS: CREATINE KINASE MB 0.5 NG/ML (<6.6)
--- NOTE | 2021-06-16 06:01 | ED Chest Pain ---
General Chief Complaint: Chest Pain Stated Complaint: SOA,CP,GARVIN Nursing Triage Note: BROUGHT IN BY [facility] FOR C/O CHEST PAIN, SOA, DIZZINESS, GARVIN X3 DAYS. Source: patient (VERY DIFFICULT HISTORIAN AND IS EXTREMELY ANXIOUS), old records (ALL PMH IS FROM OLD RECORDS) (CARA BOONE DO) History of Present Illness Date Seen by Provider: Jun 16, 2021 Time Seen by Provider: 05:24 Initial Comments PT ARRIVES VIA EMS FROM HOME NO TREATMENT BY EMS C/O CHEST PAIN X 3 DAYS STATES PAIN IS TO HER LEFT BREAST AND UNDER HER LEFT BREAST AND IT IS IN HER LEFT ARMPIT STATES PAIN COMES AND GOES RATES PAIN 8/10 AT WORST, RATES 5/10 NOW NOTHING WORSENS OR IMPROVES PAIN, STATES SHE TOOK 1 TYLENOL YESTERDAY AND IT HELPED A LITTLE, BUT DID NOT TAKE ANYMORE PT HAS BEEN SHORT OF BREATH AT TIMES SHE HAS ALSO BEEN DIZZY ALSO C/O "EXCRUCIATING SHOOTING PAINS IN MY HEAD LIKE A LIGHTNING BOLT" NO SWELLING IN LEGS/ FEET OR PAIN IN CALVES TODAY NO COUGH OR FEVER DENIES HISTORY OF SIMILAR 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[facility], 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 (CARA BOONE DO) Allergies and Home Medications Allergies Coded Allergies: No Known Drug Allergies (Verified , 09/01/17) Patient Home Medication List Home Medication List Reviewed: Yes (ROSA SILVER MD) Cephalexin (Cephalexin) 500 Mg Tablet, 500 MG PO BID Prescribed by: CHIQUI BLAIR on 01/24/212216 Clonazepam (Clonazepam) 1 Mg Tab.rapdis, 1 MG PO BID, (Reported) Entered as Reported by: MIHAELA PEREZ on 10/24/20 162 Omeprazole (Omeprazole) 20 Mg Tab.bobo., 20 MG PO DAILY, (Reported) Entered as Reported by: MIHAELA PEREZ on 10/24/20 162 Pantoprazole Sodium (Protonix) 40 Mg Tablet.dr, 40 MG PO DAILY Prescribed by: BRAD LUIS on 11/01/20 1120 Review of Systems Review of Systems Constitutional: see HPI, dizziness EENTM: No Symptoms Reported Respiratory: See HPI; Denies Cough; Shortness of Air Cardiovascular: See HPI, Chest Pain; Denies Edema; Lightheadedness Gastrointestinal: No Symptoms Reported Genitourinary: No Symptoms Reported Musculoskeletal: see HPI Skin: no symptoms reported Psychiatric/Neurological: Anxiety, Headache; Denies Numbness, Denies Paresthesia Endocrine: No Symptoms Reported Hematologic/Lymphatic: No Symptoms Reported (CARA BOONE DO) Past Mxixvxn-Bznlli-Rvwlaf Hx Patient Social History Tobacco Use?: Yes Tobacco type used: Cigarettes Smoking Status: Former Smoker Substance use?: No Alcohol Use?: Yes Alcohol type: Beer Alcohol Frequency: Once in a while Pt feels they are or have been: No (CARA BOONE DO) Immunizations Up To Date First/Initial COVID19 Vaccinat: APRIL 2020 Second COVID19 Vaccination Damaso: MAY 2020 (CARA BOONE DO) Seasonal Allergies Seasonal Allergies: Yes (CARA BOONE DO) Past Medical History Surgery/Hospitalization HX: BREAST, HYSTERECTOMY, ORTHO, HTN, GERD, HIGH CHOLESTEROL Surgeries: Yes Breast, Eye Surgery, Gallbladder, Hysterectomy Respiratory: No Cardiac: Yes Deep Vein Thrombosis Neurological: Yes Headaches /Migraines 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 Sexually Transmitted Disease: No HIV/AIDS: No Gastrointestinal: Yes (history of bowel obstruction; GASTRITIS) Gastroesophageal Reflux, Chronic Constipation, Polyps, Hiatal Hernia, Ulcer Musculoskeletal: Yes (chronic leg pain) Degenerate Disk Disease Endocrine: Yes (THYROID NODULES) Hypothyroidsim HEENT: No Loss of Vision: Bilateral Hearing Impairment: Denies Cancer: No Psychosocial: Yes Anxiety, Depression Integumentary: No (history of cellulitis) Blood Disorders: Yes (ANEMIA) Adverse Reaction/Blood Tranf: No (N/A) (CARA BOONE DO) Family Medical History Heart Disease, Stroke PAST SURGICAL HISTORY: -LEFT BREAST BIOPSIES X 2 -LIPOMA REMOVALS -CHOLECYSTECTOMY -HYSTERECTOMY/BILATERAL SALPINGO-OOPHORECTOMY -CATARACT SURGERY -EGD 11/01/[address] LUIS: POSTOPERATIVE DIAGNOSES: Reflux esophagitis stage II, mild distal esophageal stricture, no hiatal hernia, moderate gastritis and no distal obstructions. PROCEDURES PERFORMED: EGD with biopsy and balloon dilatation. CARDIAC CATH 06/13/[address] JACK: IN CONCLUSION: 1. Small to moderate-sized coronary system with mild coronary artery disease, no significant obstructive disease. 2. Normal left ventricular end diastolic pressure. DISCUSSION AND RECOMMENDATION: The patient's chest pain is probably noncardiac in nature. Medical therapy is recommended. No intervention is needed. FINAL DIAGNOSES: 1. Chest pain with nonspecific etiology. 2. Coronary artery disease. 3. Hypertension. 4. Hyperlipidemia. (CARA BOONE DO) Physical Exam Vital Signs Vital Signs - First Documented 06/16/21 05:27 Temp 36.5 Pulse 60 Resp 22 B/P (MAP) 131/108 (116) Pulse Ox 100 O2 Delivery Room Air (ROSA SILVER MD) Vital Signs Capillary Refill : Less Than 3 Seconds (CARA BOONE DO) Height, Weight, BMI Height: 5'5.00" Weight: 150lbs. 0.0oz. 68.801761me; 25.00 BMI Method:Stated General Appearance: No Apparent Distress, WD/WN, Anxious, Other (EXTREMELY ANXIOUS AND TREMULOUS) Neck: Full Range of Motion, Non Tender Respiratory: Chest Non Tender, Normal Breath Sounds, No Accessory Muscle Use, No Respiratory Distress Cardiovascular: Regular Rate, Rhythm, No Edema, No JVD, No Murmur, Normal Peripheral Pulses Gastrointestinal: Non Tender, Soft Extremity: Normal Inspection, No Pedal Edema Neurologic/Psychiatric: Alert, Oriented x3, No Motor/Sensory Deficits Skin: Normal Color, Warm/Dry; No Rash (CARA BOONE DO) Progress/Results/Core Measures Results/Orders Lab Results Laboratory Tests Test 06/16/21 05:30 06/16/21 08:01 Range/Units White Blood Count 4.0 L 4.3-11.0 10^3/uL Red Blood Count 3.73 L 3.80-5.11 10^6/uL Hemoglobin 12.6 11.5-16.0 g/dL Hematocrit 37 35-52 % Mean Corpuscular Volume 100 H 80-99 fL Mean Corpuscular Hemoglobin 34 25-34 pg Mean Corpuscular Hemoglobin Concent 34 32-36 g/dL Red Cell Distribution Width 11.9 10.0-14.5 % Platelet Count 224 130-400 10^3/uL Mean Platelet Volume 9.8 9.0-12.2 fL Immature Granulocyte % (Auto) 1 % Neutrophils (%) (Auto) 34 L 42-75 % Lymphocytes (%) (Auto) 53 H 12-44 % Monocytes (%) (Auto) 10 0-12 % Eosinophils (%) (Auto) 2 0-10 % Basophils (%) (Auto) 1 0-10 % Neutrophils # (Auto) 1.4 L 1.8-7.8 10^3/uL Lymphocytes # (Auto) 2.1 1.0-4.0 10^3/uL Monocytes # (Auto) 0.4 0.0-1.0 10^3/uL Eosinophils # (Auto) 0.1 0.0-0.3 10^3/uL Basophils # (Auto) 0.0 0.0-0.1 10^3/uL Immature Granulocyte # (Auto) 0.0 0.0-0.1 10^3/uL Prothrombin Time 14.2 12.2-14.7 SEC INR Comment 1.1 0.8-1.4 Activated Partial Thromboplast Time 24 24-35 SEC Sodium Level 138 135-145 MMOL/L Potassium Level 3.6 3.6-5.0 MMOL/L Chloride Level 104 98-107 MMOL/L Carbon Dioxide Level 20 L 21-32 MMOL/L Anion Gap 14 5-14 MMOL/L Blood Urea Nitrogen 8 7-18 MG/DL Creatinine 0.78 0.60-1.30 MG/DL Estimat Glomerular Filtration Rate 85 BUN/Creatinine Ratio 10 Glucose Level 104 70-105 MG/DL Calcium Level 9.6 8.5-10.1 MG/DL Corrected Calcium 9.3 8.5-10.1 MG/DL Magnesium Level 2.3 1.6-2.4 MG/DL Total Bilirubin 0.7 0.1-1.0 MG/DL Aspartate Amino Transf (AST/SGOT) 29 5-34 U/L Alanine Aminotransferase (ALT/SGPT) 50 0-55 U/L Alkaline Phosphatase 50 40-136 U/L Total Creatine Kinase 61 29-168 U/L Creatine Kinase MB 0.5 <6.6 NG/ML Myoglobin 35.1 10.0-92.0 NG/ML Troponin I < 0.028 < 0.028 <0.028 NG/ML B-Type Natriuretic Peptide 80.0 <100.0 PG/ML Total Protein 6.9 6.4-8.2 GM/DL Albumin 4.4 3.2-4.5 GM/DL Amylase Level 58 25-125 U/L Lipase 40 8-78 U/L TSH [place] Testing 1.52 0.35-4.94 UIU/ML (ROSA SILVER MD) My Orders Orders - ROSA SILVER MD Meclizine Tablet (Antivert Tablet) (06/16/21 07:15) Troponin I [place] (06/16/21 07:59) (ROSA SILVER MD) Medications Given in ED Current Medications Medications Dose Ordered Sig/Gray Route Start Time Stop Time Status Last Admin Dose Admin Aspirin 324 mg ONCE ONCE PO 06/16/21 05:45 06/16/21 05:46 DC 06/16/21 05:39 324 MG Meclizine HCl 25 mg ONCE ONCE PO 06/16/21 07:15 06/16/21 07:16 DC 06/16/21 07:20 25 MG Nitroglycerin 0.4 mg UD PRN SL 06/16/21 05:45 06/16/21 08:46 DC 06/16/21 05:39 0.4 MG (ROSA SILVER MD) Vital Signs/I&O 06/16/21 06/16/21 06/16/21 05:27 05:27 08:46 Temp 36.5 Pulse 60 57 Resp 22 18 B/P (MAP) 131/108 (116) 107/44 Pulse Ox 100 100 99 O2 Delivery Room Air Room Air (ROSA SILVER MD) Blood Pressure Mean: 116 Progress Progress Note : Progress Note GIVEN ASPIRIN AND NTG X 1--PT UNABLE TO STATE IF PAIN IS BETTER OR NOT. 0600--CARE TURNED OVER TO DR. SILVER, LAB SPENDING (CARA BOONE DO) Progress Note #1: Time: 06:30 Progress Note Patient reassessed at shift change. Resting comfortably. States her chest pain is gone. She complains of feeling very dizzy. She feels a spinning sensation. She also complains of left ear pain that has been intense over the past several days. She states prior to this intermittently she gets dizzy and has ear pain. No ringing in her ears. No fevers or chills. No drainage from the ear. She states when she gets up she feels like she might fall. She states she did not want to take a shower this morning for fear of falling and washed her hair in the sink. She has not taken anything for the dizziness. She states the combination of the dizziness and chest pain that woke her at 2 AM caused her to come into the emergency department. She is quite apprehensive about medications. Chest pain is not exertional. It does not cause shortness of breath, nausea or diaphoresis. She complains of left arm pain and axillary pain associated with the chest pain. She states she is due for a follow-up appointment with Dr. Jack in August. She does not smoke. She was concerned the symptoms are related to starting a new medication for her bladder as well as a new cholesterol medication. She is very concerned about her thyroid and thinks that it may not be functioning due to the nodules that have been found fairly recently. Physical examination is normal. Patient has no abnormal cerebellar findings. She does not have nystagmus. Gait is steady. She is given 25 mg of meclizine for her vertigo symptoms. Vital signs are stable. Exam is unremarkable. Labs at this time including CBC, Chem-12, troponin, thyroid cascade testing, EKG and chest x-ray are all removed and all within normal limits. I did advise her we would be rechecking a troponin level at 8 AM. This would be approximately 6 hours after the onset of waking with her pain. If this troponin is still negative, we will discharge her to home and she states she will follow-up with her nurse practitioner at [facility] on Friday. Progress Note #2: Time: 08:37 Progress Note Patient is feeling much better at the time of discharge. Her dizziness has resolved. No chest pain. She is reassured that her work-up is unremarkable and no findings were discovered to indicate she needed to be admitted to the hospital for further work-up and evaluation. She states that she will follow-up with her primary care physician on Friday as well as call Dr. Jack's office for hopefully a sooner appointment. All questions are sought and answered. Patient is stable for discharge. (ROAS SILVER MD) Initial ECG Impression Date: Jun 16, 2021 Initial ECG Impression Time: 05:30 Initial ECG Rate: 63 Initial ECG Rhythm: Normal Sinus (CARA BOONE DO) Diagnostic Imaging Comments CXR--NO ACUTE PROCESS, PENDING RADIOLOGIST REVIEW Reviewed: Reviewed by Me (CARA BOONE DO) Departure Impression Primary Impression: Chest pain Qualified Codes: R07.9 - Chest pain, unspecified Additional Impressions: Vertigo Otalgia of left ear Disposition: 01 HOME, SELF-CARE Condition: Stable Departure-Patient Inst. Decision time for Depature: 08:30 (ROSA SILVER MD) Referrals: [facility]/MERLYN BEAL DO (PCP/Family) Primary Care Physician Patient Instructions: Vertigo ED, Chest Pain That Is Not Caused by the Heart (DC) Add. Discharge Instructions: Please continue to take your daily medications as prescribed. Please call and follow-up with your primary care provider on Friday morning. You also need to keep your follow-up appointment with Dr. Jack in August. You can take [id number] "Antivert" to help with your symptoms of dizziness. Please drink plenty of fluids to stay well-hydrated because dehydration can worsen feelings of dizziness. If you develop any new, concerning or emergent complaints please come back to the emergency department for reevaluation. Copy Copies To 1: BALDO LAGUERRE LISA K DO Jun 16, 2021 06:01 ROSA SILVER MD Jun 16, 2021 07:07
[2021-06-16 06:13] LABS: TSH (THYROID ANALYZER) 1.52 UIU/ML (0.35-4.94)
[2021-06-16] MEDS ORDERED: MECLIZINE 25 MG (ANTIVERT) TAB PO ONE (07:15)
--- NOTE | 2021-06-16 07:17 | Diagnostic Imaging Report ---
INDICATION: Chest pain, dizziness, shortness of air. FINDINGS: The lungs are clear. No failure, effusion or pneumothorax. IMPRESSION: No acute appearing abnormality. Dictated by: Dictated on workstation # [id number]
[2021-06-16 08:46] VITALS: BP 107/44
== END 2021-06-16 08:46 | disposition home or self-care (01) ==
LOC: EDUNIT# 05:27 → ER 05:29
DX: R07.9 Chest pain, unspecified (principal); R42 Dizziness and giddiness; H92.02 Otalgia, left ear; Z87.891 Personal history of nicotine dependence; Z86.69 Personal history of other diseases of the nervous system and sense organs; Z86.79 Personal history of other diseases of the circulatory system
CPT/HCPCS: 36415; 71045; 80053; 82150; 82550; 82553; 83690; 83735; 83874; 83880; 84443; 84484; 85025; 85610; 85730; 93005; 93041

== ENCOUNTER 2021-09-02 07:17 | Emergency (ER) | payer MEDICARE, MEDICAID ==
[~2021-09-02] VITALS: Ht 165 cm; Wt 61.0 kg
[2021-09-02 07:55] LABS: BASOPHILS % (AUTO) 1 % (0-10); EOSINOPHILS # (AUTO) 0.2 10^3/uL (0.0-0.3); EOSINOPHILS % (AUTO) 6 % (0-10); HEMATOCRIT 37 % (35-52); HEMOGLOBIN 12.5 g/dL (11.5-16.0); LYMPHOCYTES # (AUTO) 1.4 10^3/uL (1.0-4.0); LYMPHOCYTES % (AUTO) 42 % (12-44); MEAN CORPUSCULAR HEMOGLOBIN 34 pg (25-34); MEAN CORPUSCULAR HGB CONC 34 g/dL (32-36); MEAN CORPUSCULAR VOLUME 101 fL (80-99); MEAN PLATELET VOLUME 10.3 fL (9.0-12.2); MONOCYTES # (AUTO) 0.4 10^3/uL (0.0-1.0); MONOCYTES % (AUTO) 11 % (0-12); NEUTROPHILS # (AUTO) 1.3 10^3/uL (1.8-7.8); NEUTROPHILS % (AUTO) 39 % (42-75); PLATELET COUNT 208 10^3/uL (130-400); WHITE BLOOD COUNT 3.4 10^3/uL (4.3-11.0)
[2021-09-02 07:58] LABS: ALBUMIN 4.3 GM/DL (3.2-4.5); CHLORIDE 103 MMOL/L (98-107); POTASSIUM 4.4 MMOL/L (3.6-5.0); SODIUM 138 MMOL/L (135-145)
[2021-09-02 07:59] LABS: CALCIUM 9.7 MG/DL (8.5-10.1)
[2021-09-02 08:00] LABS: GLUCOSE 117 MG/DL (70-105); TOTAL PROTEIN 7.2 GM/DL (6.4-8.2)
[2021-09-02 08:01] LABS: CARBON DIOXIDE 22 MMOL/L (21-32)
[2021-09-02 08:02] LABS: BILIRUBIN,TOTAL 0.4 MG/DL (0.1-1.0)
[2021-09-02 08:04] LABS: ALKALINE PHOSPHATASE 42 U/L (40-136); GFR ESTIMATED 83
[2021-09-02 08:05] LABS: BUN/CREATININE RATIO 11
[2021-09-02 08:05] LABS: BILIRUBIN,URINE NEGATIVE (NEGATIVE); CLARITY,URINE CLEAR; COLOR,URINE YELLOW; GLUCOSE, URINE (UA) NEGATIVE (NEGATIVE); KETONES,URINE NEGATIVE (NEGATIVE); LEUKOCYTE ESTERASE ,URINE NEGATIVE (NEGATIVE); NITRITE,URINE NEGATIVE (NEGATIVE); PROTEIN,URINE NEGATIVE (NEGATIVE)
[2021-09-02 08:07] LABS: ALANINE AMINOTRANSFERASE 53 U/L (0-55); MAGNESIUM 2.4 MG/DL (1.6-2.4)
[2021-09-02 08:14] LABS: BACTERIA,URINE TRACE /HPF; WBC,URINE RARE /HPF
[2021-09-02 08:28] LABS: FREE T4 (FREE THYROXINE) 0.99 NG/DL (0.70-1.48)
--- NOTE | 2021-09-02 08:43 | Diagnostic Imaging Report ---
PATIENT HISTORY: Chest pain. TECHNIQUE: Single frontal view of the chest. COMPARISON: 06/16/2021 FINDINGS: The lung volumes are large. No focal consolidation is seen. No large pleural effusion or pneumothorax is seen. The cardiomediastinal silhouette is normal in size and contour. No acute osseous abnormality is seen. IMPRESSION: No acute pulmonary abnormality seen. Dictated by: Dictated on workstation # [id number]
[2021-09-02] MEDS ORDERED: LORazepam INJ 2 MG/ML (ATIVAN) VIAL IVP ONE (09:45)
[2021-09-02] MEDS ORDERED: ONDANSETRON 4 MG/2 ML (SDV) Z0FRAN IVP ONE (09:45)
--- NOTE | 2021-09-02 10:38 | Diagnostic Imaging Report ---
PROCEDURE: CT head and CT cervical spine without contrast. TECHNIQUE: Multiple contiguous axial images were obtained through the brain and cervical spine without the use of intravenous contrast. Sagittal and coronal reformations through the cervical spine were then performed. Auto Exposure Controls were utilized during the CT exam to meet ALARA standards for radiation dose reduction. INDICATION: Trauma. Head and neck pain. COMPARISON: MRI brain 11/30/2013. FINDINGS: CT HEAD: No intracranial hemorrhage, mass effect, hydrocephalus or extra-axial fluid collections. No CT evidence of a territorial infarction. Osseous structures are intact. Visualized paranasal sinuses and mastoids are clear. CT CERVICAL SPINE: Mild reversal of the normal cervical lordosis. Mild to moderate diffuse degenerative endplate changes. Vertebral body heights are preserved. No fractures. No evidence of high-grade spinal canal stenosis by noncontrast CT. Visualized paravertebral soft tissues are unremarkable. The lung apices are clear. IMPRESSION: 1. No acute intracranial CT findings. 2. Mild reversal of the normal cervical lordosis may be positional or due to muscle spasm. Moderate spondylotic changes. No cervical spine fracture. Dictated by: Dictated on workstation # [id number]
[2021-09-02] MEDS ORDERED: KETOROLAC 30 MG/ML VIAL IVP ONE (11:00)
[2021-09-02] MEDS ORDERED: LACTATED RINGERS 1,000 ML IV ONE (11:00)
--- NOTE | 2021-09-02 13:14 | ED General ---
General Chief Complaint: General Problems/Pain Stated Complaint: SOA Nursing Triage Note: ARRIVED PER EMS L ARM PAIN FOR APPROX A LONG TIME W BILATERAL EYE PAIN, BILATERAL EAR PAIN AT TIMES AND HEADACHES 12/03. STATES HAS BEEN GOING ON FOR ALONG TIME. Source of Information: Patient, EMS, Old Records Exam Limitations: No Limitations History of Present Illness Date Seen by Provider: Sep 02, 2021 Allergies and Home Medications Allergies Coded Allergies: No Known Drug Allergies (Verified , 09/01/17) Patient Home Medication List Cephalexin (Cephalexin) 500 Mg Tablet, 500 MG PO BID Prescribed by: CHIQUI BLAIR on 01/24/21 2217 Clonazepam (Clonazepam) 1 Mg Tab.rapdis, 1 MG PO BID, (Reported) Entered as Reported by: MIHAELA PEREZ on 10/24/20 1622 Cyclobenzaprine HCl (Cyclobenzaprine HCl) 5 Mg Tablet, 5 MG PO TID PRN for SPASMS Prescribed by: HELIO HOWARD on 09/02/21 1322 Omeprazole (Omeprazole) 20 Mg Tab.rap.dr, 20 MG PO DAILY, (Reported) Entered as Reported by: MIHAELA PEREZ on 10/24/20 1622 Ondansetron (Ondansetron Odt) 4 Mg Tab.rapdis, 4 MG SL Q4H Prescribed by: HELIO HOWARD on 09/02/21 1322 Pantoprazole Sodium (Protonix) 40 Mg Tablet.dr, 40 MG PO DAILY Prescribed by: BRAD LUIS on 11/01/20 1120 Tramadol HCl (Ultram) 50 Mg Tablet, 25 MG PO BID PRN for PAIN-BREAKTHROUGH Prescribed by: HELIO HOWARD on 09/02/21 1323 Past Mxwdkjb-Tcokgz-Qrrhwz Hx Patient Social History Tobacco Use?: No Substance use?: No Alcohol Use?: No Pt feels they are or have been: No Immunizations Up To Date First/Initial COVID19 Vaccinat: APRIL 2020 Second COVID19 Vaccination Damaso: MAY 2020 Third COVID19 Vaccination Date: APRIL 2020 Seasonal Allergies Seasonal Allergies: Yes Past Medical History Surgery/Hospitalization HX: BREAST, HYSTERECTOMY, ORTHO, HTN, GERD, HIGH CHOLESTEROL Surgeries: Yes Breast, Eye Surgery, Gallbladder, Hysterectomy Respiratory: No Cardiac: Yes Deep Vein Thrombosis Neurological: Yes Headaches /Migraines Reproductive Disorders: No 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 Sexually Transmitted Disease: No HIV/AIDS: No Gastrointestinal: Yes (history of bowel obstruction; GASTRITIS) Gastroesophageal Reflux, Chronic Constipation, Polyps, Hiatal Hernia, Ulcer Musculoskeletal: Yes (chronic leg pain) Degenerate Disk Disease Endocrine: Yes (THYROID NODULES) Hypothyroidsim HEENT: No Loss of Vision: Bilateral Hearing Impairment: Denies Cancer: No Psychosocial: Yes Anxiety, Depression Integumentary: No (history of cellulitis) Blood Disorders: Yes (ANEMIA) Adverse Reaction/Blood Tranf: No (N/A) Family Medical History Heart Disease, Stroke PAST SURGICAL HISTORY: -LEFT BREAST BIOPSIES X 2 -LIPOMA REMOVALS -CHOLECYSTECTOMY -HYSTERECTOMY/BILATERAL SALPINGO-OOPHORECTOMY -CATARACT SURGERY -EGD 11/01/[address] LUIS: POSTOPERATIVE DIAGNOSES: Reflux esophagitis stage II, mild distal esophageal stricture, no hiatal hernia, moderate gastritis and no distal obstructions. PROCEDURES PERFORMED: EGD with biopsy and balloon dilatation. CARDIAC CATH 06/13/[address] BALDERAS: IN CONCLUSION: 1. Small to moderate-sized coronary system with mild coronary artery disease, no significant obstructive disease. 2. Normal left ventricular end diastolic pressure. DISCUSSION AND RECOMMENDATION: The patient's chest pain is probably noncardiac in nature. Medical therapy is recommended. No intervention is needed. FINAL DIAGNOSES: 1. Chest pain with nonspecific etiology. 2. Coronary artery disease. 3. Hypertension. 4. Hyperlipidemia. Physical Exam Vital Signs Vital Signs - First Documented 09/02/21 09/02/21 07:22 13:59 Temp 35.8 Pulse 59 Resp 16 B/P (MAP) 122/55 (77) Pulse Ox 99 Capillary Refill : Less Than 3 Seconds Height, Weight, BMI Height: 5'5.00" Weight: 150lbs. 0.0oz. [id number]; 22.00 BMI Method:Stated Progress/Results/Core Measures Suspected Sepsis SIRS Temperature: Pulse: 59 Respiratory Rate: 16 Laboratory Tests 09/02/21 07:35: White Blood Count 3.4L Blood Pressure 122 /55 Mean: 77 Laboratory Tests 09/02/21 07:35: Creatinine 0.80, INR Comment 1.0, Platelet Count 208, Total Bilirubin 0.4 Results/Orders Lab Results Laboratory Tests Test 09/02/21 07:35 09/02/21 07:59 Range/Units White Blood Count 3.4 L 4.3-11.0 10^3/uL Red Blood Count 3.68 L 3.80-5.11 10^6/uL Hemoglobin 12.5 11.5-16.0 g/dL Hematocrit 37 35-52 % Mean Corpuscular Volume 101 H 80-99 fL Mean Corpuscular Hemoglobin 34 25-34 pg Mean Corpuscular Hemoglobin Concent 34 32-36 g/dL Red Cell Distribution Width 11.6 10.0-14.5 % Platelet Count 208 130-400 10^3/uL Mean Platelet Volume 10.3 9.0-12.2 fL Immature Granulocyte % (Auto) 0 % Neutrophils (%) (Auto) 39 L 42-75 % Lymphocytes (%) (Auto) 42 12-44 % Monocytes (%) (Auto) 11 0-12 % Eosinophils (%) (Auto) 6 0-10 % Basophils (%) (Auto) 1 0-10 % Neutrophils # (Auto) 1.3 L 1.8-7.8 10^3/uL Lymphocytes # (Auto) 1.4 1.0-4.0 10^3/uL Monocytes # (Auto) 0.4 0.0-1.0 10^3/uL Eosinophils # (Auto) 0.2 0.0-0.3 10^3/uL Basophils # (Auto) 0.0 0.0-0.1 10^3/uL Immature Granulocyte # (Auto) 0.0 0.0-0.1 10^3/uL Prothrombin Time 14.0 12.2-14.7 SEC INR Comment 1.0 0.8-1.4 Activated Partial Thromboplast Time 20 L 24-35 SEC Sodium Level 138 135-145 MMOL/L Potassium Level 4.4 3.6-5.0 MMOL/L Chloride Level 103 98-107 MMOL/L Carbon Dioxide Level 22 21-32 MMOL/L Anion Gap 13 5-14 MMOL/L Blood Urea Nitrogen 9 7-18 MG/DL Creatinine 0.80 0.60-1.30 MG/DL Estimat Glomerular Filtration Rate 83 BUN/Creatinine Ratio 11 Glucose Level 117 H 70-105 MG/DL Calcium Level 9.7 8.5-10.1 MG/DL Corrected Calcium 9.5 8.5-10.1 MG/DL Magnesium Level 2.4 1.6-2.4 MG/DL Total Bilirubin 0.4 0.1-1.0 MG/DL Aspartate Amino Transf (AST/SGOT) 56 H 5-34 U/L Alanine Aminotransferase (ALT/SGPT) 53 0-55 U/L Alkaline Phosphatase 42 40-136 U/L Myoglobin 26.4 10.0-92.0 NG/ML Troponin I < 0.028 <0.028 NG/ML C-Reactive Protein High Sensitivity 0.06 0.00-0.50 MG/DL Total Protein 7.2 6.4-8.2 GM/DL Albumin 4.3 3.2-4.5 GM/DL Thyroid Stimulating Hormone (TSH) 1.98 0.35-4.94 UIU/ML Free Thyroxine 0.99 0.70-1.48 NG/DL Urine Color YELLOW Urine Clarity CLEAR Urine pH 6.0 5-9 Urine Specific [place] <=1.005 1.016-1.022 Urine Protein NEGATIVE NEGATIVE Urine Glucose (UA) NEGATIVE NEGATIVE Urine Ketones NEGATIVE NEGATIVE Urine Nitrite NEGATIVE NEGATIVE Urine Bilirubin NEGATIVE NEGATIVE Urine Urobilinogen 0.2 < = 1.0 MG/DL Urine Leukocyte Esterase NEGATIVE NEGATIVE Urine RBC (Auto) NEGATIVE NEGATIVE Urine RBC NONE /HPF Urine WBC RARE /HPF Urine Crystals NONE /LPF Urine Bacteria TRACE /HPF Urine Casts NONE /LPF Urine Mucus NEGATIVE /LPF Urine Culture Indicated NO My Orders Orders - HELIO SALDAÑA MD Cbc With Automated Diff (09/02/21 07:45) Comprehensive Metabolic Panel (09/02/21 07:45) Hs C Reactive Protein (09/02/21 07:45) Magnesium (09/02/21 07:45) Thyroid Stimulating Hormone (09/02/21 07:45) Ua Culture If Indicated (09/02/21 07:45) Free T4 (Free Thyroxine) (09/02/21 07:45) Chest 1 View, Ap/Pa Only (09/02/21 07:50) Myoglobin Serum (09/02/21 07:50) Protime With Inr (09/02/21 07:50) Partial Thromboplastin Time (09/02/21 07:50) Monitor-Rhythm Ecg Trace Only (09/02/21 07:50) Ed Iv/Invasive Line Start (09/02/21 07:50) Troponin I [place] (09/02/21 07:50) Ct Head/Cervical Spine Wo (09/02/21 09:42) Lorazepam Injection (Ativan Injection) (09/02/21 09:45) Ondansetron Injection (Zofran Injectio (09/02/21 09:45) Ketorolac Injection (Toradol Injection) (09/02/21 11:00) Lactated Ringers (Lr 1000 Ml Iv Solution (09/02/21 11:00) Tramadol Tablet (Ultram Tablet) (09/02/21 13:15) Orphenadrine Inj (Ed Only) (Norflex Inje (09/02/21 13:15) Medications Given in ED Current Medications Medications Dose Ordered Sig/Gray Route Start Time Stop Time Status Last Admin Dose Admin Ketorolac Tromethamine 30 mg ONCE ONCE IVP 09/02/21 11:00 09/02/21 11:01 DC 09/02/21 11:14 30 MG Lactated Ringer's 1,000 ml @ 0 mls/hr Q0M ONCE IV 09/02/21 11:00 09/02/21 11:01 DC 09/02/21 11:14 1,000 MLS/HR Lorazepam 0.5 mg ONCE ONCE IVP 09/02/21 09:45 09/02/21 09:46 DC 09/02/21 10:07 0.5 MG Ondansetron HCl 8 mg ONCE ONCE IVP 09/02/21 09:45 09/02/21 09:46 DC 09/02/21 10:05 8 MG Orphenadrine Citrate 30 mg ONCE ONCE IV 09/02/21 13:15 09/02/21 13:16 DC 09/02/21 13:31 30 MG Tramadol HCl 25 mg ONCE ONCE PO 09/02/21 13:15 09/02/21 13:16 DC 09/02/21 13:30 25 MG Vital Signs/I&O 09/02/21 09/02/21 07:22 13:59 Temp 35.8 Pulse 59 60 Resp 16 16 B/P (MAP) 122/55 (77) 115/55 Pulse Ox 99 Capillary Refill : Less Than 3 Seconds Blood Pressure Mean: 77 ECG Initial ECG Impression Date: Sep 02, 2021 Initial ECG Impression Time: 07:31 Initial ECG Rate: 59 Initial ECG Rhythm: Normal Sinus Initial ECG Intervals: Normal Initial ECG Impression: Normal Comment Normal sinus rhythm with not ST elevation or depression. No abnormal intervals or axis deviation. Departure Impression Primary Impression: Tension headache Additional Impressions: Muscle spasm Nausea Left arm pain Disposition: 01 HOME, SELF-CARE Condition: Improved Departure-Patient Inst. Decision time for Depature: 13:18 Referrals: [facility] (PCP/Family) Primary Care Physician Patient Instructions: Tension Headache Add. Discharge Instructions: Try to rest in a quiet, calm environment for the rest of today. For future headaches you may try ibuprofen up to 400 mg every 4 hours as needed. If this is insufficient, you may add Tylenol (acetaminophen) up to 1000 mg every 6 hours and/or Ultram (tramadol) as prescribed. Tramadol may cause sleepiness and constipation. Monitor for the side effects and use with caution. You may use cyclobenzaprine muscle relaxer as prescribed for muscle spasms. Gentle heat, gentle stretching, and gentle massage may also help relax these sore tense muscles. Follow-up with your primary care provider as soon as possible. Please call Friday for follow-up appointment. Return to the ER if you have worsening symptoms. All discharge instructions reviewed with patient and/or family. Voiced understanding. Scripts Ondansetron (Ondansetron Odt) 4 Mg Tab.rapdis 4 MG SL Q4H, #10 TAB Prov: HELIO SALDAÑA MD 09/02/21 Tramadol HCl (Ultram) 50 Mg Tablet 25 MG PO BID PRN for PAIN-BREAKTHROUGH, #10 TAB Prov: HELIO SALDAÑA MD 09/02/21 Cyclobenzaprine HCl (Cyclobenzaprine HCl) 5 Mg Tablet 5 MG PO TID PRN for SPASMS, #10 TAB Prov: HELIO SALDAÑA MD 09/02/21 Copy Copies To 1: [facility]/HELIO DAY MD Sep 02, 2021 13:14
[2021-09-02] MEDS ORDERED: ORPHENADRINE 60 MG/2 ML (NORFLEX) AMP (ED ONLY) IV ONE (13:15)
[2021-09-02] MEDS ORDERED: TRAM-42 PO (13:22)
[2021-09-02] MEDS ORDERED: ONDA4TAB11 SL (13:22)
[2021-09-02] MEDS ORDERED: CYCL5TAB PO (13:22)
[2021-09-02 13:59] VITALS: BP 115/55
== END 2021-09-02 13:59 | disposition home or self-care (01) ==
LOC: EDUNIT# 07:17 → ER 07:18
DX: G44.209 Tension-type headache, unspecified, not intractable (principal); R11.0 Nausea; M62.838 Other muscle spasm; M79.602 Pain in left arm; I10 Essential (primary) hypertension; I25.10 Atherosclerotic heart disease of native coronary artery without angina pectoris; E78.5 Hyperlipidemia, unspecified
CPT/HCPCS: 36415; 70450; 71045; 72125; 80053; 81000; 83735; 83874; 84439; 84443; 84484; 85025; 85610; 85730; 86141; 93005

== ENCOUNTER → 2021-09-25 | Outpatient (CLI) | payer MEDICARE, MEDICAID ==
[~2021-09-25] MED LIST changes: +CYCL5TAB PO; +ONDA4TAB11 SL; +TRAM-42 PO
--- NOTE | 2021-09-25 14:07 | Diagnostic Imaging Report ---
PROCEDURE: US Thyroid. TECHNIQUE: Multiple real-time grayscale images were obtained of the thyroid in various projections. INDICATION: Thyroid nodules COMPARISON: 12/04/2020 and prior FINDINGS: Right thyroid lobe: Size (cm): 3.9 x 0.9 x 1.2 Echotexture: Normal Vascularity: Normal Nodules: None Isthmus: Size (cm): 0.2 Nodules: None Left thyroid lobe: Size (cm): 4.5 x 1.5 x 1.1 Echotexture: Normal Vascularity: Normal Nodules: This is a hypoechoic solid nodule in the superior left thyroid measuring up to 4 mm. There is a solid circumscribed nodule in the mid left thyroid posteriorly which measures up to 1.2 cm in size and appears slightly hypoechoic, which appears taller than wide (TI-RADS 5). There is a solid hypoechoic nodule in the inferior left thyroid which measures up to 6 mm. Impression: 1. TI-RADS 5 nodule in the left mid thyroid measuring 1.2 cm. This nodule was previously biopsied on 06/01/2020 and is mildly increased in size since 12/04/2020, but stable since 04/21/2020. 2. Additional nodules in the left thyroid do not qualify for followup. Dictated by: Dictated on workstation # [id number]
== END ==
LOC: RAD 12:00
PROVIDERS: ATTEND Otolaryngology Otolaryngology/Facial Plastic Surgery
DX: E04.2 Nontoxic multinodular goiter (principal)
CPT/HCPCS: 76536

== ENCOUNTER 2021-10-09 11:57 | Emergency (ER) | payer MEDICARE, MEDICAID ==
[~2021-10-09] VITALS: Ht 157.5 cm; Wt 59.7 kg
[2021-10-09 12:05] VITALS: BP 125/80
[2021-10-09] MEDS ORDERED: NS IV 500 ML 500 ML IV STA (12:19)
--- NOTE | 2021-10-09 12:25 | ED Headache ---
General Chief Complaint: Head/Cervical Problems Stated Complaint: GARVIN Nursing Triage Note: Pt states that she has had a headache for 2 months, getting progressively worse, with nausea, left ear pain and right sided facial numbness for the past few days Source: patient Exam Limitations: no limitations History of Present Illness Date Seen by Provider: Oct 09, 2021 Time Seen by Provider: 12:21 Initial Comments Patient is a 61-year-old female who is extremely anxious who presents to ED with head pain. She rates her pain 10 out of 10. She on arrival was crying in co mplaining of this head pain that she has had for the past 2 to 3 months. She is was seen here last month had a negative CT scan of the head and neck. She was placed on a medication for migraines by her primary care physician Dr. Benson. They are trying obtain a MRI at this time. She has a history of thyroid biopsy in 2020 that showed atypia with no malignancy. She had a [facility] heart cath in 2016 showing mild coronary artery disease with no obstruction. Patient has blurry vision bilateral with sensitivity to light. She has been taken Tylenol without much improvement. She does have pain to the left ear, left-sided neck that radiates up to the head. Started having a similar pain on the right side of her neck radiating up to her neck. She denies of any unilateral weakness or sensory changes. She reports nausea with dry heaving. Difficulty obtaining a history of patient has she is extremely anxious and tearful regarding this pain that she has been having. She denies of any current chest pain, abdominal pain, vomiting, diarrhea Allergies and Home Medications Allergies Coded Allergies: [id number] Reductase Inhibitor (Verified Allergy, Unknown, 09/04/21) Opioids - Morphine Analogues (Verified Adverse Reaction, Intermediate, Nausea, 09/04/21) Patient Home Medication List Home Medication List Reviewed: Yes Cephalexin (Cephalexin) 500 Mg Tablet, 500 MG PO BID Prescribed by: CHIQUI BLAIR on 01/24/217 Clonazepam (Clonazepam) 1 Mg Tab.rapdis, 1 MG PO BID, (Reported) Entered as Reported by: MIHAELA PEREZ on 10/24/20 1622 Cyclobenzaprine HCl (Cyclobenzaprine HCl) 5 Mg Tablet, 5 MG PO TID PRN for SPASMS Prescribed by: HELIO HOWARD on 09/02/21 1322 Omeprazole (Omeprazole) 20 Mg Tab.rap.dr, 20 MG PO DAILY, (Reported) Entered as Reported by: MIHAELA PEREZ on 10/24/20 1622 Ondansetron (Ondansetron Odt) 4 Mg Tab.rapdis, 4 MG SL Q4H Prescribed by: HELIO HOWARD on 09/02/21 1322 Pantoprazole Sodium (Protonix) 40 Mg Tablet.dr, 40 MG PO DAILY Prescribed by: BRAD LUIS on 11/01/20 1120 Tramadol HCl (Ultram) 50 Mg Tablet, 25 MG PO BID PRN for PAIN-BREAKTHROUGH Prescribed by: HELIO HOWARD on 09/02/21 1323 Tramadol HCl (Tramadol HCl) 50 Mg Tablet, 50 MG PO TID Prescribed by: CHIQUI BLAIR on 10/09/21 1414 Review of Systems Review of Systems Constitutional: No chills, No malaise, No weakness Eyes: Blurred Vision; Denies Decreased Acuity, Denies Photophobia Ears, Nose, Mouth, Throat: ear pain Respiratory: No cough, No short of breath Cardiovascular: No chest pain Gastrointestinal: No abdominal pain, No diarrhea; nausea; No vomiting Genitourinary: No decreased output, No discharge Musculoskeletal: No joint pain Psychiatric/Neurological: Headache; Denies Numbness, Denies Paresthesia, Denies Weakness All Other Systems Reviewed Negative Unless Noted: Yes Past Jnkerdm-Iqbynp-Pioecd Hx Patient Social History Tobacco Use?: No Use of E-Cig and/or Vaping dev: No Substance use?: No Alcohol Use?: No Pt feels they are or have been: No Immunizations Up To Date First/Initial COVID19 Vaccinat: APRIL 2020 Second COVID19 Vaccination Damaso: MAY 2020 Third COVID19 Vaccination Date: APRIL 2020 Seasonal Allergies Seasonal Allergies: Yes Past Medical History Surgery/Hospitalization HX: BREAST, HYSTERECTOMY, ORTHO, HTN, GERD, HIGH CHOLESTEROL Surgeries: Yes (Thyroid biopsy) Breast, Cardiac, Eye Surgery, Gallbladder, Hysterectomy Respiratory: No Cardiac: Yes Deep Vein Thrombosis, High Cholesterol Neurological: Yes Headaches /Migraines 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 Sexually Transmitted Disease: No HIV/AIDS: No Gastrointestinal: Yes (history of bowel obstruction; GASTRITIS) Gastroesophageal Reflux, Chronic Constipation, Polyps, Hiatal Hernia, Ulcer Musculoskeletal: Yes (chronic leg pain) Degenerate Disk Disease Endocrine: Yes (THYROID NODULES) Hypothyroidsim HEENT: No Loss of Vision: Bilateral Hearing Impairment: Denies Cancer: No Psychosocial: Yes Anxiety, Depression Integumentary: No (history of cellulitis) Blood Disorders: Yes (ANEMIA) Adverse Reaction/Blood Tranf: No (N/A) Family Medical History Heart Disease, Stroke PAST SURGICAL HISTORY: -LEFT BREAST BIOPSIES X 2 -LIPOMA REMOVALS -CHOLECYSTECTOMY -HYSTERECTOMY/BILATERAL SALPINGO-OOPHORECTOMY -CATARACT SURGERY -EGD 11/01/[address] LUIS: POSTOPERATIVE DIAGNOSES: Reflux esophagitis stage II, mild distal esophageal stricture, no hiatal hernia, moderate gastritis and no distal obstructions. PROCEDURES PERFORMED: EGD with biopsy and balloon dilatation. CARDIAC CATH 06/13/[address] BALDERAS: IN CONCLUSION: 1. Small to moderate-sized coronary system with mild coronary artery disease, no significant obstructive disease. 2. Normal left ventricular end diastolic pressure. DISCUSSION AND RECOMMENDATION: The patient's chest pain is probably noncardiac in nature. Medical therapy is recommended. No intervention is needed. FINAL DIAGNOSES: 1. Chest pain with nonspecific etiology. 2. Coronary artery disease. 3. Hypertension. 4. Hyperlipidemia. Physical Exam Vital Signs Vital Signs - First Documented 10/09/21 12:05 Temp 36.4 Pulse 85 Resp 24 B/P (MAP) 125/80 (95) Pulse Ox 98 O2 Delivery Room Air Capillary Refill : Less Than 3 Seconds Height, Weight, BMI Height: 5'5.00" Weight: 150lbs. 0.0oz. 68.746148qm; 24.00 BMI Method:Stated General Appearance: WD/WN, no apparent distress HEENT: PERRL/EOMI, normal ENT inspection, TMs normal, pharynx normal Neck: non-tender, full range of motion, supple, normal inspection Cardiovascular: regular rate, rhythm, no edema, no gallop, no JVD Respiratory: chest non-tender, lungs clear, normal breath sounds, no respiratory distress, no accessory muscle use Gastrointestinal: normal bowel sounds, non tender, soft, no organomegaly Back: normal inspection, no CVA tenderness Extremities: normal range of motion, non-tender, normal inspection, no pedal edema Coordination/Gait: normal finger to nose, normal gait Motor/Sensory: no motor deficit, no sensory deficit Skin: normal color, warm/dry Progress/Results/Core Measures Results/Orders Lab Results Laboratory Tests Test 10/09/21 12:33 Range/Units White Blood Count 4.9 4.3-11.0 10^3/uL Red Blood Count 3.93 3.80-5.11 10^6/uL Hemoglobin 13.2 11.5-16.0 g/dL Hematocrit 39 35-52 % Mean Corpuscular Volume 99 80-99 fL Mean Corpuscular Hemoglobin 34 25-34 pg Mean Corpuscular Hemoglobin Concent 34 32-36 g/dL Red Cell Distribution Width 11.9 10.0-14.5 % Platelet Count 210 130-400 10^3/uL Mean Platelet Volume 10.2 9.0-12.2 fL Immature Granulocyte % (Auto) 0 % Neutrophils (%) (Auto) 32 L 42-75 % Lymphocytes (%) (Auto) 51 H 12-44 % Monocytes (%) (Auto) 11 0-12 % Eosinophils (%) (Auto) 4 0-10 % Basophils (%) (Auto) 1 0-10 % Neutrophils # (Auto) 1.6 L 1.8-7.8 10^3/uL Lymphocytes # (Auto) 2.5 1.0-4.0 10^3/uL Monocytes # (Auto) 0.6 0.0-1.0 10^3/uL Eosinophils # (Auto) 0.2 0.0-0.3 10^3/uL Basophils # (Auto) 0.1 0.0-0.1 10^3/uL Immature Granulocyte # (Auto) 0.0 0.0-0.1 10^3/uL Erythrocyte Sedimentation Rate 4 0-30 MM/HR Sodium Level 136 135-145 MMOL/L Potassium Level 4.3 3.6-5.0 MMOL/L Chloride Level 103 98-107 MMOL/L Carbon Dioxide Level 23 21-32 MMOL/L Anion Gap 10 5-14 MMOL/L Blood Urea Nitrogen 10 7-18 MG/DL Creatinine 0.81 0.60-1.30 MG/DL Estimat Glomerular Filtration Rate 82 BUN/Creatinine Ratio 12 Glucose Level 97 70-105 MG/DL Calcium Level 9.6 8.5-10.1 MG/DL Corrected Calcium 9.2 8.5-10.1 MG/DL Total Bilirubin 0.4 0.1-1.0 MG/DL Aspartate Amino Transf (AST/SGOT) 43 H 5-34 U/L Alanine Aminotransferase (ALT/SGPT) 50 0-55 U/L Alkaline Phosphatase 51 40-136 U/L C-Reactive Protein High Sensitivity 0.06 0.00-0.50 MG/DL Total Protein 7.5 6.4-8.2 GM/DL Albumin 4.5 3.2-4.5 GM/DL My Orders Orders - KENDRA PATEL Cbc With Automated Diff (10/09/21 12:19) Comprehensive Metabolic Panel (10/09/21 12:19) Iv/Invasive Line Insertion .IV start (10/09/21 12:19) Ketorolac Injection (Toradol Injection) (10/09/21 12:30) Promethazine Injection (Phenergan Injec (10/09/21 12:30) Dexamethasone Injection (Decadron Inje (10/09/21 12:30) Ns Iv 500 Ml (Sodium Chloride 0.9%) (10/09/21 12:19) Hs C Reactive Protein (10/09/21 12:42) Erythrocyte Sedimentation Rate (10/09/21 12:42) Tramadol Tablet (Ultram Tablet) (10/09/21 14:01) Medications Given in ED Current Medications Medications Dose Ordered Sig/Gray Route Start Time Stop Time Status Last Admin Dose Admin Dexamethasone Sodium Phosphate 10 mg ONCE ONCE IV 10/09/21 12:30 10/09/21 12:31 DC 10/09/21 12:35 10 MG Ketorolac Tromethamine 30 mg ONCE ONCE IVP 10/09/21 12:30 10/09/21 12:31 DC 10/09/21 12:35 30 MG Promethazine HCl 25 mg ONCE ONCE IVP 10/09/21 12:30 10/09/21 12:31 DC 10/09/21 12:35 25 MG Vital Signs/I&O 10/09/21 12:05 Temp 36.4 Pulse 85 Resp 24 B/P (MAP) 125/80 (95) Pulse Ox 98 O2 Delivery Room Air Blood Pressure Mean: 95 Departure Communication (PCP) Patient presents ED with head pain. Head pain over the past 2 months that is constant. Has been taking a migraine medication without much improvement. Patient without any focal neural deficits. CT scan of the head that was performed 1 month ago was unremarkable. She has bilateral neck tenderness. Was diagnosed with tension headache last month. Patient was requesting an MRI. She was given migraine cocktail with improvement of head pain from 10 to a 5. She states she does have some pain to the neck and states tramadol did help with the pain in the past which she was given a dose here. Her lab work was otherwise unremarkable. No scalp tenderness. No rash noted. NIH is 0. Due to her length of symptoms recommend following up outpatient with her primary care physician for further evaluation. She has no bowel or urine incontinence, saddle paresthesia. No history of MS. No cervical radiculopathy type pain. No current chest pain. She is highly anxious. Discussed following up outpatient with PCP. Impression Primary Impression: Headache Disposition: 01 HOME, SELF-CARE Condition: Stable Departure-Patient Inst. Decision time for Depature: 14:13 [facility] [place] ([facility]P/Family) Primary Care Physician Patient Instructions: Headache, Adult ED Scripts Tramadol HCl (Tramadol HCl) 50 Mg Tablet 50 MG PO TID, #6 TAB Prov: KENDRA PATEL 10/09/21 KENDRA PATEL Oct 09, 2021 12:25
[2021-10-09] MEDS ORDERED: PROMETHAZINE INJ 25 MG/ML (PHENERGAN) AMP IVP ONE (12:30)
[2021-10-09] MEDS ORDERED: KETOROLAC 30 MG/ML VIAL IVP ONE (12:30)
[2021-10-09 12:48] LABS: BASOPHILS # (AUTO) 0.1 10^3/uL (0.0-0.1); BASOPHILS % (AUTO) 1 % (0-10); EOSINOPHILS # (AUTO) 0.2 10^3/uL (0.0-0.3); EOSINOPHILS % (AUTO) 4 % (0-10); HEMATOCRIT 39 % (35-52); HEMOGLOBIN 13.2 g/dL (11.5-16.0); LYMPHOCYTES # (AUTO) 2.5 10^3/uL (1.0-4.0); LYMPHOCYTES % (AUTO) 51 % (12-44); MEAN CORPUSCULAR HEMOGLOBIN 34 pg (25-34); MEAN CORPUSCULAR HGB CONC 34 g/dL (32-36); MEAN CORPUSCULAR VOLUME 99 fL (80-99); MEAN PLATELET VOLUME 10.2 fL (9.0-12.2); MONOCYTES # (AUTO) 0.6 10^3/uL (0.0-1.0); MONOCYTES % (AUTO) 11 % (0-12); NEUTROPHILS # (AUTO) 1.6 10^3/uL (1.8-7.8); NEUTROPHILS % (AUTO) 32 % (42-75); PLATELET COUNT 210 10^3/uL (130-400); WHITE BLOOD COUNT 4.9 10^3/uL (4.3-11.0)
[2021-10-09 13:03] LABS: ALBUMIN 4.5 GM/DL (3.2-4.5); POTASSIUM 4.3 MMOL/L (3.6-5.0)
[2021-10-09 13:04] LABS: CALCIUM 9.6 MG/DL (8.5-10.1)
[2021-10-09 13:06] LABS: TOTAL PROTEIN 7.5 GM/DL (6.4-8.2)
[2021-10-09 13:07] LABS: BILIRUBIN,TOTAL 0.4 MG/DL (0.1-1.0)
[2021-10-09 13:09] LABS: CREATININE SERUM 0.81 MG/DL (0.60-1.30)
[2021-10-09 13:17] LABS: ERYTHROCYTE SEDIMENTATION RATE 4 MM/HR (0-30)
[2021-10-09] MEDS ORDERED: TRAM50TA3 PO (14:13)
== END 2021-10-09 14:22 | disposition home or self-care (01) ==
LOC: EDUNIT# 11:57 → ER 12:00
DX: R51.9 Headache, unspecified (principal); M54.2 Cervicalgia; Z86.69 Personal history of other diseases of the nervous system and sense organs
CPT/HCPCS: 36415; 80053; 85025; 85652; 86141

== ENCOUNTER → 2021-11-06 | Outpatient (CLI) | payer MEDICARE, MEDICAID ==
[~2021-11-06] MED LIST changes: +TRAM50TA3 PO
== END ==
LOC: CARD 09:18
PROVIDERS: ATTEND Physician Assistant
DX: I10 Essential (primary) hypertension (principal); I25.10 Atherosclerotic heart disease of native coronary artery without angina pectoris
CPT/HCPCS: 93306

== ENCOUNTER → 2021-11-14 | Outpatient (CLI) | payer MEDICARE, MEDICAID ==
[~2021-11-14] VITALS: Ht 165 cm; Wt 59.0 kg
[~2021-11-14] MED LIST changes: +CATHETER FLUSH 10 ML SYR IVP PRN
[2021-11-14 13:14] VITALS: BP 113/61
--- NOTE | 2021-11-14 15:29 | Cardiology Stress Test Report ---
Stress Test Report Date of Procedure/Referring: Date of Procedure: Nov 14, 2021 [facility] Admitting Physician Admitting Physician: Attending Physician: Wanad Silva Indications: CP Baseline Heart Rate: 50 Baseline Blood Pressure: Blood Pressure Systolic: 113 Blood Pressure Diastolic: 61 Vital Signs Date Time Temp Pulse Resp B/P (MAP) Pulse Ox O2 Delivery O2 Flow Rate FiO2 11/14/21 13:14 50 113/61 (78) 98 Baseline Vital Signs Vital Signs Date Time Temp Pulse Resp B/P (MAP) Pulse Ox O2 Delivery O2 Flow Rate FiO2 11/14/21 13:14 50 113/61 (78) 98 Baseline EKG: Baseline EKG: NSR Summary: After explaining the procedure and details to the patient, she signed the consent and was brought to the stress nuclear laboratory. Patient exercised on standard Kofi protocol, EKG, heart rate and blood pressure were monitored continuously, resting and stress doses of radio tracer were injected, imaging was acquired and reviewed in the short axis, horizontal long axis and vertical long axis views Patient was able to exercise for a total of 4.30 minutes on Kofi protocol, METs 5 Maximum heart rate 83 Maximum blood pressure 140/71 Stress EKG, Minimal nondiagnostic changes Recovery EKG, Return to baseline TID: 1.01 SSS: 3 SDS: 3 EF: 79 Conclusion: 1. Submaximal stress test, patient achieved only 83% of maximal expected heart rate after 4 minutes and 3 seconds on standard Kofi protocol. 2. Appropriate heart rate and blood pressure response to exercise return to baseline during recovery 3. Nondiagnostic EKG changes with exercise return to baseline during recovery 4. Breast attenuation with no significant ischemia or infarction on SPECT images 5. Normal left ventricular size, ejection fraction 79% Copy Copies To 1: [facility] [place] MAXIMUS BALDERAS MD Nov 14, 2021 15:29
== END ==
LOC: CARD 12:15
PROVIDERS: ATTEND Physician Assistant
DX: R07.9 Chest pain, unspecified (principal)
CPT/HCPCS: 78452; 93017; A9502

== ENCOUNTER 2022-04-21 17:15 | Emergency (ER) | payer MEDICARE, MEDICAID ==
[~2022-04-21] VITALS: Ht 165 cm; Wt 61.0 kg
[~2022-04-21 17:15] MED LIST changes: -CATHETER FLUSH 10 ML SYR IVP PRN
[2022-04-21] MEDS ORDERED: NS IV 1000 ML 1,000 ML IV STA (17:42)
[2022-04-21] MEDS ORDERED: diphenhydrAMINE 50 MG/ML INJ (BENADRYL) IVP ONE (17:45)
[2022-04-21] MEDS ORDERED: KETOROLAC 30 MG/ML VIAL IVP ONE (17:45)
[2022-04-21] MEDS ORDERED: PROCHLORPERAZINE 10 MG/2ML INJ (COMPAZINE) IV ONE (17:45)
--- NOTE | 2022-04-21 17:56 | ED Headache ---
General Chief Complaint: Head/Cervical Problems Stated Complaint: MIGRAINE/NAUSEA Nursing Triage Note: COMPLAINS OF A HEADACHE OFF AND ON FOR A WHILE BUT TODAY HAS BEEN WORSE. 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 STATES SHE FEELS LIKE HERE HEAD IS GOING TO BURST. STATES HER LEFT EYE IS JUMPING. PAIN IN HER LEFT EAR AND LEFT BREAST. Source: patient Exam Limitations: no limitations History of Present Illness Date Seen by Provider: Apr 21, 2022 Time Seen by Provider: 17:52 Initial Comments Patient presents the ED with head pain. She states this head pain has been on and off for several months. Head pain is daily. She states today's head pain is worse. Woke up with head pain rates 10 out of 10. Describes it as it feels like her head is going to "explode". she took ibuprofen without much improvement. Head pain is behind the left eye with pressure to the left ear. States this feels very similar to her other headaches. She also reports intermittent twitching of her left eye and numbness and tingling left arm with these headaches. She reports daily headaches. She denies of any weakness, vomiting. Photophobia with nausea. She has been seen here in the past for headaches. She reports history of MRI in 2019. She has not seen a neurologist for this headaches. She states Friday she had double vision but that improved. No loss of vision of the left eye. Denies history of diabetes, coronary artery disease. No recent upper respiratory infection. Denies of any neck pain. No facial droop, slurred speech, unilateral weakness, history of strokes, dizziness, unsteady gait. Allergies and Home Medications Allergies Coded Allergies: Cdghczr-JDJ-IvF Reductase Inhibitor (Verified Allergy, Unknown, 09/04/21) Opioids - Morphine Analogues (Verified Adverse Reaction, Intermediate, Nausea, 09/04/21) Patient Home Medication List Home Medication List Reviewed: Yes Butalb/Acetaminophen/Caffeine (Gwvsqt-Eysevame-Ihwq 50-300-40) 50 Mg-300 Mg-40 Mg Capsule, 1 EACH PO Q4H PRN for HEADACHE Prescribed by: CHIQUI BLAIR on 04/21/221915 Discontinued Medications Cephalexin (Cephalexin) 500 Mg Tablet, 500 MG PO BID Discontinued Reason: No Longer Taking Prescribed by: CHIQUI BLAIR on 01/24/212216 Last Action: Discontinued Clonazepam (Clonazepam) 1 Mg Tab.rapdis, 1 MG PO BID, (Reported) Discontinued Reason: No Longer Taking Entered as Reported by: MIHAELA PEREZ on 10/24/20 162 Last Action: Discontinued Cyclobenzaprine HCl (Cyclobenzaprine HCl) 5 Mg Tablet, 5 MG PO TID PRN for SPASMS Discontinued Reason: No Longer Taking Prescribed by: HELIO HOWARD on 09/02/21 1322 Last Action: Discontinued Omeprazole (Omeprazole) 20 Mg Tab.rap.dr, 20 MG PO DAILY, (Reported) Discontinued Reason: No Longer Taking Entered as Reported by: MIHAELA PEREZ on 10/24/20 162 Last Action: Discontinued Ondansetron (Ondansetron Odt) 4 Mg Tab.rapdis, 4 MG SL Q4H Discontinued Reason: No Longer Taking Prescribed by: HELIO HOWARD on 09/02/21 1322 Last Action: Discontinued Pantoprazole Sodium (Protonix) 40 Mg Tablet.dr, 40 MG PO DAILY Discontinued Reason: No Longer Taking Prescribed by: BRAD LUIS on 11/01/20 1120 Last Action: Discontinued Tramadol HCl (Ultram) 50 Mg Tablet, 25 MG PO BID PRN for PAIN-BREAKTHROUGH Discontinued Reason: No Longer Taking Prescribed by: HELIO HOWARD on 09/02/21 1323 Last Action: Discontinued Tramadol HCl (Tramadol HCl) 50 Mg Tablet, 50 MG PO TID Discontinued Reason: No Longer Taking Prescribed by: CHIQUI BLAIR on 10/09/21 1414 Last Action: Discontinued Review of Systems Review of Systems Constitutional: No chills, No diaphoresis, No malaise Eyes: Blurred Vision; Denies Decreased Acuity, Denies Inflammation; Photophobia; Denies Previous Injury, Denies Contact Lenses Ears, Nose, Mouth, Throat: denies ear pain, denies ear discharge Respiratory: No cough Cardiovascular: No chest pain, No edema Gastrointestinal: No abdominal pain, No nausea, No vomiting Genitourinary: No decreased output, No discharge Musculoskeletal: No back pain, No joint pain, No muscle pain Skin: No change in color, No change in hair/nails All Other Systems Reviewed Negative Unless Noted: Yes Past Jurjrzi-Aucyll-Wprbnk Hx Patient Social History Tobacco Use?: No Substance use?: No Alcohol Use?: No Immunizations Up To Date First/Initial COVID19 Vaccinat: APRIL 2020 Second COVID19 Vaccination Damaso: MAY 2020 Third COVID19 Vaccination Date: APRIL 2020 COVID19 Vaccine 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: 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 Seasonal Allergies Seasonal Allergies: Yes Past Medical History Surgery/Hospitalization HX: BREAST, HYSTERECTOMY, ORTHO, HTN, GERD, HIGH CHOLESTEROL Surgeries: Yes (Thyroid biopsy) Breast, Cardiac, Eye Surgery, Gallbladder, Hysterectomy Respiratory: No Cardiac: Yes Deep Vein Thrombosis, High Cholesterol Neurological: Yes Headaches /Migraines Reproductive Disorders: No RADIOLOGY PHYSICIAN History: Hysterectomy Sexually Transmitted Disease: No HIV/AIDS: No Gastrointestinal: Yes (history of bowel obstruction; GASTRITIS) Gastroesophageal Reflux, Chronic Constipation, Polyps, Hiatal Hernia, Ulcer Musculoskeletal: Yes (chronic leg pain) Degenerate Disk Disease Endocrine: Yes (THYROID NODULES) Hypothyroidsim HEENT: No Loss of Vision: Bilateral Hearing Impairment: Denies Cancer: No Psychosocial: Yes Anxiety, Depression Integumentary: No (history of cellulitis) Blood Disorders: Yes (ANEMIA) Adverse Reaction/Blood Tranf: No (N/A) Family Medical History Heart Disease, Stroke PAST SURGICAL HISTORY: -LEFT BREAST BIOPSIES X 2 -LIPOMA REMOVALS -CHOLECYSTECTOMY -HYSTERECTOMY/BILATERAL SALPINGO-OOPHORECTOMY -CATARACT SURGERY -EGD 11/01/[address] LUIS: POSTOPERATIVE DIAGNOSES: Reflux esophagitis stage II, mild distal esophageal stricture, no hiatal hernia, moderate gastritis and no distal obstructions. PROCEDURES PERFORMED: EGD with biopsy and balloon dilatation. CARDIAC CATH 06/13/[address] BALDERAS: IN CONCLUSION: 1. Small to moderate-sized coronary system with mild coronary artery disease, no significant obstructive disease. 2. Normal left ventricular end diastolic pressure. DISCUSSION AND RECOMMENDATION: The patient's chest pain is probably noncardiac in nature. Medical therapy is recommended. No intervention is needed. FINAL DIAGNOSES: 1. Chest pain with nonspecific etiology. 2. Coronary artery disease. 3. Hypertension. 4. Hyperlipidemia. Physical Exam Vital Signs Vital Signs - First Documented 04/21/22 17:27 Temp 36.2 Pulse 75 Resp 16 B/P (MAP) 136/75 (95) Pulse Ox 100 O2 Delivery Room Air Capillary Refill : Less Than 3 Seconds Height, Weight, BMI Height: 5'5.00" Weight: 150lbs. 0.0oz. [id number]; 22.00 BMI Method:Stated General Appearance: WD/WN, no apparent distress HEENT: PERRL/EOMI, normal ENT inspection, TMs normal, pharynx normal Neck: non-tender, full range of motion, supple Cardiovascular: regular rate, rhythm, no edema, no gallop, no JVD Respiratory: chest non-tender, lungs clear, normal breath sounds, no respiratory distress, no accessory muscle use Gastrointestinal: normal bowel sounds, non tender, soft, no organomegaly Back: normal inspection, no CVA tenderness Extremities: normal range of motion, normal inspection Crainal Nerves: normal hearing, normal speech, PERRL Coordination/Gait: normal finger to nose, normal gait Motor/Sensory: no motor deficit, no sensory deficit Skin: normal color, warm/dry Progress/Results/Core Measures Results/Orders Lab Results Laboratory Tests Test 04/21/22 17:45 Range/Units White Blood Count 5.7 4.3-11.0 10^3/uL Red Blood Count 3.95 3.80-5.11 10^6/uL Hemoglobin 13.3 11.5-16.0 g/dL Hematocrit 38 35-52 % Mean Corpuscular Volume 97 80-99 fL Mean Corpuscular Hemoglobin 34 25-34 pg Mean Corpuscular Hemoglobin Concent 35 32-36 g/dL Red Cell Distribution Width 11.6 10.0-14.5 % Platelet Count 242 130-400 10^3/uL Mean Platelet Volume 10.7 9.0-12.2 fL Immature Granulocyte % (Auto) 0 % Neutrophils (%) (Auto) 31 L 42-75 % Lymphocytes (%) (Auto) 56 H 12-44 % Monocytes (%) (Auto) 10 0-12 % Eosinophils (%) (Auto) 2 0-10 % Basophils (%) (Auto) 1 0-10 % Neutrophils # (Auto) 1.8 1.8-7.8 10^3/uL Lymphocytes # (Auto) 3.2 1.0-4.0 10^3/uL Monocytes # (Auto) 0.6 0.0-1.0 10^3/uL Eosinophils # (Auto) 0.1 0.0-0.3 10^3/uL Basophils # (Auto) 0.0 0.0-0.1 10^3/uL Immature Granulocyte # (Auto) 0.0 0.0-0.1 10^3/uL Prothrombin Time 13.3 12.2-14.7 SEC INR Comment 1.0 0.8-1.4 Activated Partial Thromboplast Time 25 24-35 SEC Sodium Level 137 135-145 MMOL/L Potassium Level 4.0 3.6-5.0 MMOL/L Chloride Level 104 98-107 MMOL/L Carbon Dioxide Level 19 L 21-32 MMOL/L Anion Gap 14 5-14 MMOL/L Blood Urea Nitrogen 16 7-18 MG/DL Creatinine 0.86 0.60-1.30 MG/DL Estimat Glomerular Filtration Rate 76 BUN/Creatinine Ratio 19 Glucose Level 100 70-105 MG/DL Calcium Level 9.5 8.5-10.1 MG/DL Corrected Calcium 9.3 8.5-10.1 MG/DL Total Bilirubin 0.3 0.1-1.0 MG/DL Aspartate Amino Transf (AST/SGOT) 27 5-34 U/L Alanine Aminotransferase (ALT/SGPT) 21 0-55 U/L Alkaline Phosphatase 59 40-136 U/L Total Protein 7.3 6.4-8.2 GM/DL Albumin 4.2 3.2-4.5 GM/DL My Orders Orders - KENDRA PATEL Cbc With Automated Diff (04/21/22 17:42) Comprehensive Metabolic Panel (04/21/22 17:42) Partial Thromboplastin Time (04/21/22 17:42) Protime With Inr (04/21/22 17:42) Ct Head Wo (04/21/22 17:42) Ns Iv 1000 Ml (Sodium Chloride 0.9%) (04/21/22 17:42) Diphenhydramine Injection (Benadryl Inje (04/21/22 17:45) Prochlorperazine Injection (Compazine In (04/21/22 17:45) Ketorolac Injection (Toradol Injection) (04/21/22 17:45) Medications Given in ED Vital Signs/I&O 04/21/22 04/21/22 04/21/22 17:27 17:57 19:27 Temp 36.2 36.2 Pulse 75 86 Resp 16 18 B/P (MAP) 136/75 (95) 110/63 Pulse Ox 100 98 O2 Delivery Room Air Room Air Blood Pressure Mean: 95 Departure Communication (PCP) Patient presents ED with headache. She has had daily headaches according to patient over the past several months. She would not recall exactly how many months or years. She reports twitching of the left eye numbness in the left arm daily, worse since she woke up this morning. No other specific acute changes besides it feels like her head is going to explode today. Her vital signs are stable. Reviewed multiple old ER records. She does appear slightly anxious however due to her current presentation CT scan of the head was ordered with general lab work. CT scan head initial read by myself was negative for acute abnormality such as hemorrhaging, mass effect. Review by radiologist without any acute abnormality. NIH was 0. Vital signs stable. Lab work was ordered CBC, CMP which was unremarkable. She is afebrile with no evidence suggesting infection. Exam otherwise benign but did have some twitching of her eyes. no current visual loss. She has no weakness to her extremity. She was given a migraine cocktail with near resolution of her symptoms within 1 hour. She was able to ambulate with a steady gait. Patient symptoms improved significantly. She had a MRI in April 2018 which was unremarkable. She has no urinary symptoms at this time. No history of MS, hypertension, intracranial hypertension after reviewing previous chart. She states she has followed up with her primary regarding her headaches but has not received an MRI according to patient. She has not seen a neurologist. Patient symptoms improved. Feel like patient can be discharge with strict return precautions. Recommend follow-up with PCP in 2 to 3 days for evaluation. I will provide a few days of Fioricet to try for these headaches. Concern for migraine which will like not help with these form of headaches. She states she has not been diagnosed with migraines by a neurologist. Further evaluation will be needed outpatient. Impression Primary Impression: Headache Disposition: 01 HOME, SELF-CARE Condition: Stable Departure-Patient Inst. Decision time for Depature: 19:14 Referrals: [facility] (PCP/Family) Primary Care Physician Patient Instructions: Migraines (DC) Add. Discharge Instructions: Recommend following up with your PCP for further evaluation. May try Fioricet at home. Avoid driving or working on the medication. All discharge instructions reviewed with patient and/or family. Voiced understanding. Scripts Butalb/Acetaminophen/Caffeine (Zhogsg-Iyyjdfdc-Hskj 50-300-40) 50 Mg-300 Mg-40 Mg Capsule 1 EACH PO Q4H PRN for HEADACHE, #8 CAP Prov: KENDRA PATEL 04/21/22 KENDRA PATEL Apr 21, 2022 17:56
[2022-04-21 17:58] LABS: BASOPHILS % (AUTO) 1 % (0-10); EOSINOPHILS # (AUTO) 0.1 10^3/uL (0.0-0.3); EOSINOPHILS % (AUTO) 2 % (0-10); HEMATOCRIT 38 % (35-52); HEMOGLOBIN 13.3 g/dL (11.5-16.0); LYMPHOCYTES # (AUTO) 3.2 10^3/uL (1.0-4.0); LYMPHOCYTES % (AUTO) 56 % (12-44); MEAN CORPUSCULAR HEMOGLOBIN 34 pg (25-34); MEAN CORPUSCULAR HGB CONC 35 g/dL (32-36); MEAN CORPUSCULAR VOLUME 97 fL (80-99); MEAN PLATELET VOLUME 10.7 fL (9.0-12.2); MONOCYTES # (AUTO) 0.6 10^3/uL (0.0-1.0); MONOCYTES % (AUTO) 10 % (0-12); NEUTROPHILS # (AUTO) 1.8 10^3/uL (1.8-7.8); NEUTROPHILS % (AUTO) 31 % (42-75); PLATELET COUNT 242 10^3/uL (130-400); WHITE BLOOD COUNT 5.7 10^3/uL (4.3-11.0)
[2022-04-21 18:14] LABS: PROTHROMBIN TIME PATIENT 13.3 SEC (12.2-14.7)
[2022-04-21 18:15] LABS: ALBUMIN 4.2 GM/DL (3.2-4.5)
[2022-04-21 18:16] LABS: CALCIUM 9.5 MG/DL (8.5-10.1)
[2022-04-21 18:17] LABS: TOTAL PROTEIN 7.3 GM/DL (6.4-8.2)
[2022-04-21 18:19] LABS: BILIRUBIN,TOTAL 0.3 MG/DL (0.1-1.0)
--- NOTE | 2022-04-21 18:19 | Diagnostic Imaging Report ---
PROCEDURE: CT head without contrast. TECHNIQUE: Multiple contiguous axial images were obtained through the brain without the use of intravenous contrast. Auto Exposure Controls were utilized during the CT exam to meet ALARA standards for radiation dose reduction. INDICATION: Migraine. Left eye and head pain. COMPARISON: CT head without contrast 09/02/2021. FINDINGS: No intracranial hemorrhage, mass effect, hydrocephalus or extra-axial fluid collection. No CT evidence of a territorial infarction. Mucosal thickening in the left sphenoid sinus. Visualized mastoids are clear. Osseous structures are intact. IMPRESSION: No acute intracranial CT finding. Dictated by: Dictated on workstation # [id number]
[2022-04-21 18:21] LABS: CREATININE SERUM 0.86 MG/DL (0.60-1.30)
[2022-04-21] MEDS ORDERED: BUTA1CAP41 PO (19:15)
[2022-04-21 19:27] VITALS: BP 110/63
== END 2022-04-21 19:28 | disposition home or self-care (01) ==
LOC: EDUNIT# 17:15 → ER 17:17
DX: R51.9 Headache, unspecified (principal)
CPT/HCPCS: 36415; 70450; 80053; 85025; 85610; 85730

== ENCOUNTER → 2022-05-10 | Outpatient (CLI) | payer MEDICARE, MEDICAID ==
[~2022-05-10] MED LIST changes: +BUTA1CAP41 PO
--- NOTE | 2022-05-10 13:21 | Diagnostic Imaging Report ---
PROCEDURE: MR imaging of the brain without contrast. TECHNIQUE: Multiplanar, multisequence MR imaging of the brain was performed without contrast. INDICATION: Eye pain. Ear pain. Migraines. COMPARISON: CT head without contrast 04/21/2022. FINDINGS: No abnormal intracranial signal. No restricted water diffusion. No hemosiderin deposition or evidence of intracranial hemorrhage. Normal morphology including the major midline structures, sella, posterior fossa and cerebellar pontine angle. Normal intracranial flow voids. No hydrocephalus or extra-axial fluid collections. Postoperative changes in the right globe. Mild mucosal thickening in the maxillary and sphenoid sinuses. The mastoids are clear. Normal bone marrow signal. IMPRESSION: 1. Unremarkable MRI of the brain without contrast. No abnormal intracranial signal. No evidence of acute infarction or hemorrhage. 2. Mild mucosal thickening in the paranasal sinuses as above. 3. Please note dedicated orbit sequences were not performed. If there is clinical concern for an optic nerve lesion, recommend dedicated MRI of the orbits without and with IV contrast. Dictated by: Dictated on workstation # [id number]
== END ==
LOC: RAD 13:15
PROVIDERS: ATTEND Nurse Practitioner Family
DX: J34.9 Unspecified disorder of nose and nasal sinuses (principal); H53.9 Unspecified visual disturbance; G43.109 Migraine with aura, not intractable, without status migrainosus; E23.7 Disorder of pituitary gland, unspecified
CPT/HCPCS: 70551

== ENCOUNTER → 2022-07-15 | Outpatient (CLI) | payer MEDICARE, MEDICAID ==
--- NOTE | 2022-07-15 18:33 | Diagnostic Imaging Report ---
PROCEDURE: US Thyroid. TECHNIQUE: Multiple real-time grayscale images were obtained of the thyroid in various projections. INDICATION: Thyroid nodules. COMPARED: 09/25/2021. FINDINGS: A dominant mass in the left mid thyroid lobe posteriorly measures 1.3 x 1.1 x 1.2 cm and has punctate echogenic foci which may be tiny microcalcifications. It is unchanged in size from prior and reportedly has been previously biopsied. Additional subcentimeter hypoechoic nodules at the upper and lower pole are unchanged. The right lobe unremarkable. No new mass. IMPRESSION: Stable hypoechoic solid and likely a partly calcified left lobe mass. No new lesion. Dictated by: Dictated on workstation # [id number]
== END ==
LOC: RAD 11:14
PROVIDERS: ATTEND Otolaryngology Otolaryngology/Facial Plastic Surgery
DX: E04.1 Nontoxic single thyroid nodule (principal)
CPT/HCPCS: 76536

== ENCOUNTER 2022-09-05 12:19 | Emergency (ER) | payer MEDICARE, MEDICAID ==
[~2022-09-05] VITALS: Ht 165 cm; Wt 61.0 kg
[2022-09-05 12:54] LABS: BASOPHILS % (AUTO) 1 % (0-10); EOSINOPHILS # (AUTO) 0.1 10^3/uL (0.0-0.3); EOSINOPHILS % (AUTO) 3 % (0-10); HEMATOCRIT 37 % (35-52); HEMOGLOBIN 12.4 g/dL (11.5-16.0); LYMPHOCYTES # (AUTO) 2.4 10^3/uL (1.0-4.0); LYMPHOCYTES % (AUTO) 54 % (12-44); MEAN CORPUSCULAR HEMOGLOBIN 33 pg (25-34); MEAN CORPUSCULAR HGB CONC 34 g/dL (32-36); MEAN CORPUSCULAR VOLUME 99 fL (80-99); MEAN PLATELET VOLUME 9.8 fL (9.0-12.2); MONOCYTES # (AUTO) 0.4 10^3/uL (0.0-1.0); MONOCYTES % (AUTO) 9 % (0-12); NEUTROPHILS # (AUTO) 1.5 10^3/uL (1.8-7.8); NEUTROPHILS % (AUTO) 34 % (42-75); PLATELET COUNT 190 10^3/uL (130-400); WHITE BLOOD COUNT 4.4 10^3/uL (4.3-11.0)
[2022-09-05 13:02] LABS: ALBUMIN 4.2 GM/DL (3.2-4.5); CHLORIDE 104 MMOL/L (98-107); SODIUM 137 MMOL/L (135-145)
[2022-09-05 13:03] LABS: CALCIUM 9.4 MG/DL (8.5-10.1)
[2022-09-05 13:04] LABS: GLUCOSE 101 MG/DL (70-105); PROTHROMBIN TIME PATIENT 13.6 SEC (12.2-14.7)
[2022-09-05 13:05] LABS: TOTAL PROTEIN 6.9 GM/DL (6.4-8.2)
[2022-09-05 13:06] LABS: BILIRUBIN,TOTAL 0.3 MG/DL (0.1-1.0); CARBON DIOXIDE 26 MMOL/L (21-32)
--- NOTE | 2022-09-05 13:07 | ED Chest Pain ---
General Chief Complaint: Chest Pain Stated Complaint: CHEST PAINS Nursing Triage Note: Pt sent from clinic for further evaluation of pain to left axilla with radiation into chest and arm. Pt reports onset of symptoms "for months". Source: patient Exam Limitations: no limitations History of Present Illness Date Seen by Provider: Sep 05, 2022 Time Seen by Provider: 12:27 Initial Comments 62-year-old female presents to the ER from the [facility] walk-in clinic. She reports that this morning around 5:30 AM she woke up with left-sided chest pain that radiated into her left armpit, left arm, and left shoulder. She reports it was intermittent from about 5:30 to 8:30 AM. She states she took one of her pain medications and that has helped the pain. She denies any sweating with the pain, reports she did have some nausea, no vomiting. Reports some shortness of breath. Denies any current chest pain. She has 3 nodules on her thyroid, she sees Dr. Mitchell for this. She is also scheduled to see a specialist for this in November. She reports that she often has pain on the left side of her neck due to the nodules, she also has a hoarse voice due to the nodules. She does have medical history of high cholesterol, and blockage in her bilateral carotids. Denies history of hypertension and diabetes, she does not smoke, drink or use drugs. Allergies and Home Medications Allergies Coded Allergies: Reiwmfd-UYR-VcU Reductase Inhibitor (Verified Allergy, Unknown, 09/04/21) Opioids - Morphine Analogues (Verified Adverse Reaction, Intermediate, Nausea, 09/04/21) Patient Home Medication List Home Medication List Reviewed: Yes Butalb/Acetaminophen/Caffeine (Gmfpdx-Yccfcltw-Sxov 50-300-40) 50 Mg-300 Mg-40 Mg Capsule, 1 EACH PO Q4H PRN for HEADACHE Prescribed by: CHIQUI BLAIR on 04/21/221915 Review of Systems Review of Systems Constitutional: see HPI Past Tvjdrwd-Labbdd-Unxvkf Hx Patient Social History Tobacco Use?: No Use of E-Cig and/or Vaping dev: No Substance use?: No Alcohol Use?: No Pt feels they are or have been: No Immunizations Up To Date First/Initial COVID19 Vaccinat: unknown Second COVID19 Vaccination Damaso: MAY 2020 Third COVID19 Vaccination Date: APRIL 2020 Seasonal Allergies Seasonal Allergies: Yes Past Medical History Surgery/Hospitalization HX: Thyroid, Cholesterol, Carotid blockage Surgeries: Yes (Thyroid biopsy) Breast, Cardiac, Eye Surgery, Gallbladder, Hysterectomy Respiratory: No Cardiac: Yes Deep Vein Thrombosis, High Cholesterol Neurological: Yes Headaches /Migraines Reproductive Disorders: No 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 Sexually Transmitted Disease: No HIV/AIDS: No Gastrointestinal: Yes (history of bowel obstruction; GASTRITIS) Gastroesophageal Reflux, Chronic Constipation, Polyps, Hiatal Hernia, Ulcer Musculoskeletal: Yes (chronic leg pain) Degenerate Disk Disease Endocrine: Yes (THYROID NODULES) Hypothyroidsim HEENT: No Loss of Vision: Bilateral Hearing Impairment: Denies Cancer: No Psychosocial: Yes Anxiety, Depression Integumentary: No (history of cellulitis) Blood Disorders: Yes (ANEMIA) Adverse Reaction/Blood Tranf: No (N/A) Family Medical History Heart Disease, Stroke PAST SURGICAL HISTORY: -LEFT BREAST BIOPSIES X 2 -LIPOMA REMOVALS -CHOLECYSTECTOMY -HYSTERECTOMY/BILATERAL SALPINGO-OOPHORECTOMY -CATARACT SURGERY -EGD 11/01/[address] LUIS: POSTOPERATIVE DIAGNOSES: Reflux esophagitis stage II, mild distal esophageal stricture, no hiatal hernia, moderate gastritis and no distal obstructions. PROCEDURES PERFORMED: EGD with biopsy and balloon dilatation. CARDIAC CATH 06/13/[address] JACK: IN CONCLUSION: 1. Small to moderate-sized coronary system with mild coronary artery disease, no significant obstructive disease. 2. Normal left ventricular end diastolic pressure. DISCUSSION AND RECOMMENDATION: The patient's chest pain is probably noncardiac in nature. Medical therapy is recommended. No intervention is needed. FINAL DIAGNOSES: 1. Chest pain with nonspecific etiology. 2. Coronary artery disease. 3. Hypertension. 4. Hyperlipidemia. Physical Exam Vital Signs Vital Signs - First Documented 09/05/22 12:23 Temp 36.7 Pulse 56 Resp 16 B/P (MAP) 137/62 (87) Pulse Ox 98 O2 Delivery Room Air Capillary Refill : Less Than 3 Seconds Height, Weight, BMI Height: 5'5.00" Weight: 150lbs. 0.0oz. 68.982923sp; 22.00 BMI Method:Stated General Appearance: No Apparent Distress, WD/WN Neck: Normal Inspection, Supple Respiratory: Chest Non Tender, Lungs Clear, Normal Breath Sounds, No Accessory Muscle Use, No Respiratory Distress Cardiovascular: Regular Rate, Rhythm Extremity: Normal Inspection, Normal Range of Motion Neurologic/Psychiatric: Alert, No Motor/Sensory Deficits Skin: Normal Color, Warm/Dry Progress/Results/Core Measures Results/Orders Lab Results Laboratory Tests Test 09/05/22 12:35 Range/Units White Blood Count 4.4 4.3-11.0 10^3/uL Red Blood Count 3.72 L 3.80-5.11 10^6/uL Hemoglobin 12.4 11.5-16.0 g/dL Hematocrit 37 35-52 % Mean Corpuscular Volume 99 80-99 fL Mean Corpuscular Hemoglobin 33 25-34 pg Mean Corpuscular Hemoglobin Concent 34 32-36 g/dL Red Cell Distribution Width 11.6 10.0-14.5 % Platelet Count 190 130-400 10^3/uL Mean Platelet Volume 9.8 9.0-12.2 fL Immature Granulocyte % (Auto) 0 % Neutrophils (%) (Auto) 34 L 42-75 % Lymphocytes (%) (Auto) 54 H 12-44 % Monocytes (%) (Auto) 9 0-12 % Eosinophils (%) (Auto) 3 0-10 % Basophils (%) (Auto) 1 0-10 % Neutrophils # (Auto) 1.5 L 1.8-7.8 10^3/uL Lymphocytes # (Auto) 2.4 1.0-4.0 10^3/uL Monocytes # (Auto) 0.4 0.0-1.0 10^3/uL Eosinophils # (Auto) 0.1 0.0-0.3 10^3/uL Basophils # (Auto) 0.0 0.0-0.1 10^3/uL Immature Granulocyte # (Auto) 0.0 0.0-0.1 10^3/uL Prothrombin Time 13.6 12.2-14.7 SEC INR Comment 1.0 0.8-1.4 Activated Partial Thromboplast Time 24 24-35 SEC Sodium Level 137 135-145 MMOL/L Potassium Level 4.0 3.6-5.0 MMOL/L Chloride Level 104 98-107 MMOL/L Carbon Dioxide Level 26 21-32 MMOL/L Anion Gap 7 5-14 MMOL/L Blood Urea Nitrogen 14 7-18 MG/DL Creatinine 0.81 0.60-1.30 MG/DL Estimat Glomerular Filtration Rate 81 BUN/Creatinine Ratio 17 Glucose Level 101 70-105 MG/DL Calcium Level 9.4 8.5-10.1 MG/DL Corrected Calcium 9.2 8.5-10.1 MG/DL Magnesium Level 2.3 1.6-2.4 MG/DL Total Bilirubin 0.3 0.1-1.0 MG/DL Aspartate Amino Transf (AST/SGOT) 26 5-34 U/L Alanine Aminotransferase (ALT/SGPT) 23 0-55 U/L Alkaline Phosphatase 64 40-136 U/L Troponin I < 0.028 <0.028 NG/ML Total Protein 6.9 6.4-8.2 GM/DL Albumin 4.2 3.2-4.5 GM/DL Thyroid Stimulating Hormone (TSH) 2.63 0.35-4.94 UIU/ML My Orders Orders - WILLIAM ZHENG APRN Cbc With Automated Diff (09/05/22 12:26) Magnesium (09/05/22 12:26) Chest 1 View, Ap/Pa Only (09/05/22 12:26) Ekg Tracing (09/05/22 12:26) Comprehensive Metabolic Panel (09/05/22 12:26) Protime With Inr (09/05/22 12:) Partial Thromboplastin Time (09/05/22 12:26) Monitor-Rhythm Ecg Trace Only (09/05/22 12:26) Ed Iv/Invasive Line Start (09/05/22 12:26) Troponin I [place] (09/05/22 12:26) Thyroid Stimulating Hormone (09/05/22 13:07) Vital Signs/I&O 09/05/22 09/05/22 12:23 14:28 Temp 36.7 Pulse 56 54 Resp 16 16 B/P (MAP) 137/62 (87) 117/66 Pulse Ox 98 100 O2 Delivery Room Air Room Air Blood Pressure Mean: 87 Progress Progress Note : Progress Note Patient seen and evaluated, resting comfortably in bed, no acute distress. Based on exam and symptoms, cardiac work-up initiated including CBC, CMP, magnesium, coags, troponin, TSH, EKG, chest x-ray. 1415 Labs and imaging reviewed. CBC mostly normal, RBC slightly decreased, neutrophils slightly decreased, CMP grossly normal. Magnesium normal at 2.3. Troponin negative. TSH normal at 2.63. Coags normal. Chest x-ray shows no acute cardiopulmonary process. Results discussed with patient. Since her troponin and EKG are normal, I am less concerned of a cardiac issue causing this pain. Patient is also currently pain-free since about 8:30 this morning. I am comfortable with discharge at this time, patient also agreeable to discharge plan. Patient instructed to follow-up with Dr. Jack, cardiology. Discharge instructions and return precautions provided. Initial ECG Impression Date: Sep 05, 2022 Initial ECG Impression Time: 12:36 Initial ECG Rate: 53 Initial ECG Rhythm: S.Severiano Initial ECG Intervals: Normal Initial ECG Impression: Normal Initial ECG Comparisson: Unchanged Diagnostic Imaging Diagonstic Imaging: Xray Plain Films/CT/US/NM/MRI: chest Comments [facility], [place] NAME: RAIN HENSLEY [facility] REC#: [id number] PT STATUS: REG ER : 1960 PHYSICIAN: WILLIAM ZHENG APRN ADMIT DATE: 09/05/22/ER Draft Date of Exam:09/05/22 CHEST 1 VIEW, AP/PA ONLY Clinical indication: Patient with chest pain today. EXAM: Portable chest x-ray upright view. COMPARISON: Chest x-ray dated 09/02/2021. FINDINGS: Lungs/pleura: Lungs are clear. There is no pneumothorax. There is no pleural effusion. Mediastinum: Unremarkable. Pulmonary vasculature: Unremarkable. Heart: Unremarkable. Bones/extrathoracic soft tissue: Unremarkable. IMPRESSION: There is no radiographic evidence of acute cardiopulmonary process. Dictated on workstation # [id number] Dict: 09/05/22 1301 Trans: 09/05/22 1308 [id number] Interpreted by: ZACH ALVARADO MD Electronically signed by: Departure Impression Primary Impression: Chest pain Disposition: 01 HOME, SELF-CARE Condition: Stable Departure-Patient Inst. Decision time for Depature: 14:17 Referrals: ELAINA ORTEGA APRN (PCP) Primary Care Physician [facility] (Family) Primary Care Physician Patient Instructions: Chest Pain Add. Discharge Instructions: Call Dr. Jack's office today to schedule a follow-up appointment. Return for severe chest pain, shortness of breath, or any other new, concerning, or worsening symptoms. All discharge instructions reviewed with patient and/or family. Voiced u tyrell. WILLIAM ZHENG APRN Sep 05, 2022 13:07
[2022-09-05 13:08] LABS: ALKALINE PHOSPHATASE 64 U/L (40-136); CREATININE SERUM 0.81 MG/DL (0.60-1.30); GFR ESTIMATED 81
[2022-09-05 13:09] LABS: BUN/CREATININE RATIO 17
--- NOTE | 2022-09-05 13:10 | Diagnostic Imaging Report ---
Clinical indication: Patient with chest pain today. EXAM: Portable chest x-ray upright view. COMPARISON: Chest x-ray dated 09/02/2021. FINDINGS: Lungs/pleura: Lungs are clear. There is no pneumothorax. There is no pleural effusion. Mediastinum: Unremarkable. Pulmonary vasculature: Unremarkable. Heart: Unremarkable. Bones/extrathoracic soft tissue: Unremarkable. IMPRESSION: There is no radiographic evidence of acute cardiopulmonary process. Dictated by: Dictated on workstation # [id number]
[2022-09-05 13:11] LABS: ALANINE AMINOTRANSFERASE 23 U/L (0-55); MAGNESIUM 2.3 MG/DL (1.6-2.4)
[2022-09-05 14:28] VITALS: BP 117/66
== END 2022-09-05 14:29 | disposition home or self-care (01) ==
LOC: EDUNIT# 12:19 → ER 12:21
DX: R07.89 Other chest pain (principal)
CPT/HCPCS: 36415; 71045; 80053; 83735; 84443; 84484; 85025; 85610; 85730; 93005; 93041

== ENCOUNTER 2022-11-27 05:33 | Outpatient (CLI) | payer MEDICARE, MEDICAID ==
[~2022-11-27] VITALS: Ht 165.1 cm; Wt 65.6 kg
[~2022-11-27 05:33] MED LIST changes: +DICY-11 PO; -DICY10CA12 PO
[2022-11-27] MEDS ORDERED: OXYB10TA29 PO (09:51)
[2022-11-27] MEDS ORDERED: SELE200T11 PO (09:51)
[2022-11-27] MEDS ORDERED: PROP40TA5 PO (09:51)
[2022-11-27] MEDS ORDERED: VITA200T7 PO (09:51)
[2022-11-27] MEDS ORDERED: NF-VITD400 PO (09:51)
[2022-11-27] MEDS ORDERED: AMIT25TA9 PO (09:51)
[2022-11-27] MEDS ORDERED: BACI1TAB24 PO (09:51)
[2022-11-27] MEDS ORDERED: CLON0.5T4 PO (09:51)
[2022-11-27] MEDS ORDERED: ASCO100024 PO (09:51)
[2022-11-27] MEDS ORDERED: PANT40TA52 PO (09:51)
== END 2022-11-27 09:55 | disposition home or self-care (01) ==
LOC: PREOP 05:33
PROVIDERS: ATTEND Surgery
DX: Z01.818 Encounter for other preprocedural examination (principal)

== ENCOUNTER 2022-12-04 11:08 | Day surgery (SDC) | payer MEDICARE, MEDICAID ==
[~2022-12-04] VITALS: Ht 165.1 cm; Wt 65.6 kg
[~2022-12-04 11:08] MED LIST changes: +AMIT25TA9 PO; +ASCO100024 PO; +BACI1TAB24 PO; +CLON0.5T4 PO; +NF-VITD400 PO; +OXYB10TA29 PO; +PANT40TA52 PO; +PROP40TA5 PO; +SELE200T11 PO; +VITA200T7 PO
[2022-12-04] MEDS ORDERED: LACTATED RINGERS 1,000 ML 1,000 ML IV STA (11:09)
[2022-12-04] MEDS ORDERED: HURRICAINE EXT TUBE (BENZOCAINE) XX PRN (11:15)
[2022-12-04 11:34] VITALS: BP 117/60
[2022-12-04] MEDS ORDERED: MIDAZOLAM INJ 2 MG/2 ML VIAL ONE (11:45)
--- NOTE | 2022-12-04 11:58 | Progress Note-Pre Operative ---
Pre-Operative Progress Note Date of Available H&P: Dec 04, 2022 Date H&P Reviewed: Dec 04, 2022 Time H&P Reviewed: 11:30 History & Physical: No changes noted Pre-Operative Diagnosis: dysphagia, hx BRAD Helton MD Dec 04, 2022 11:58
--- NOTE | 2022-12-04 11:59 | Discharge Inst-Surgical ---
D/C Lap Instructions-JANELLE Follow Activity as tolerated High Fiber Diet 25g or more per day Avoid Alcohol, Caffeine, Spicy [place] and Acid foods. Drink 64 fluid oz or more of fluids per day. Symptoms to Report: Fever over 101 degree F, Nausea/Vomiting If any problems/questions: Contact your physician or go to Emergency Room BRAD LUIS MD Dec 04, 2022 11:59
[2022-12-04] MEDS ORDERED: ONDANSETRON INJECTION 4 MG/2 ML (SDV) IVP PRN (12:00)
[2022-12-04] MEDS ORDERED: ONDANSETRON 4 MG ORAL DISSOLVE TABLET PO PRN (12:00)
[2022-12-04] MEDS ORDERED: LIDOCAINE JELLY 2% 6 ML SYRINGE ONE (12:08)
[2022-12-04 12:30] VITALS: BP 102/55
[2022-12-04] MEDS ORDERED: LIDOCAINE JELLY 2% 6 ML SYRINGE TOP ONE (12:30)
[2022-12-04 12:35] VITALS: BP_SYST 117; BP_SYST 95; BP_DIAS 49; BP_DIAS 60
[2022-12-04] MEDS ORDERED: OMEP40CA6 PO (12:46)
--- NOTE | 2022-12-04 12:58 | Progress Note-Post Operative ---
Post-Operative Progess Note Surgeon (s)/Bail Bondsman (s) Surgeon BRAD LUIS MD Bail Bondsman: none Pre-Operative Diagnosis dysphagia, hx barretts Post-Operative Diagnosis reflux esophagitis(C), mild esoph stricture, small HH(2.5cm), moderate gastritis. Procedure & Operative Findings Date of Procedure 12/04/22 Procedure Performed/Findings EGD with bx and balloon dilatation. Anesthesia Type mac Estimated Blood Loss Estimated blood loss (mL): minimal Specimens/Packing Specimens Removed ge jxn, antrum BRAD LUIS MD Dec 04, 2022 12:58
[2022-12-04 13:17] VITALS: BP 95/49
--- NOTE | 2022-12-04 14:37 | Anesthesia-General Post-Op ---
MAC Patient Condition Mental Status/LOC: Same as Preop Cardiovascular: Satisfactory Nausea/Vomiting: Absent Respiratory: Satisfactory Pain: Controlled Complications: Absent Post Op Complications Complications None Follow Up Care/Instructions Patient Instructions None needed. Anesthesiology Discharge Order Discharge Order Patient is doing well, no complaints, stable vital signs, no apparent adverse anesthesia problems. No complications reported per nursing. ASHLIE ASHBY CRNA Dec 04, 2022 14:37
--- NOTE | 2022-12-04 19:30 | OPERATIVE REPORT ---
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 PREOPERATIVE DIAGNOSES: Dysphagia and history of Rivas's esophagus. POSTOPERATIVE DIAGNOSES: Reflux esophagitis, [place] grade C with mild distal esophageal stricture; small hiatal hernia, approximately 2 to 2.5 cm in size; moderate gastritis, no distal obstructions. PROCEDURE: EGD with biopsy and balloon dilatation. SURGEON: Brad Luis MD ANESTHESIA: Monitored anesthesia care. ESTIMATED BLOOD LOSS: Minimal. FINDINGS: Reflux esophagitis, [place] grade C with mild distal esophageal stricture; small hiatal hernia, approximately 2 to 2.5 cm in size; moderate gastritis, no distal obstructions. DISPOSITION: The patient tolerated the procedure well. INDICATIONS: The patient is a 62-year-old female known to us. We have done previous endoscopies on her before. We had seen her in 2016 for dysphagia and she was found to have mild distal esophageal stricture and underwent balloon dilatation. Biopsies were also taken and positive for Rivas's esophagus. She states that her dysphagia in the past several months has worsened and she has developed hoarseness in her voice as well as hypopharyngeal irritation and chronic cough at night. She also feels that her reflux type of symptoms have worsened as well. She is currently on Protonix 40 mg daily. DESCRIPTION OF PROCEDURE: The patient was brought to the endoscopy suite and laid in the left lateral decubitus position. After adequate IV pain and sedative medications and monitored anesthesia care, the mouthpiece was applied. The endoscope was then placed into the mouth, visualizing the pharynx and hypopharyngeal region. Vocal cords, epiglottis and vallecula identified and appeared to be normal. The endoscope was then gently intubated into the esophageal opening and esophagus was insufflated. The endoscope was then advanced through the first, second and third portions of esophagus. At the level of the GE junction, reflux esophagitis, [place] grade C was identified with mild distal esophageal stricture and a biopsy was taken with forceps with visualization of good hemostasis. The endoscope was then advanced into the stomach and endoscope was retroflexed, visualizing a small hiatal hernia approximately 2.5 cm in size. There was moderate gastritis, more towards the stomach antrum. No formal ulcers, polyps or any neoplasms. A biopsy was taken of the antrum to rule out H. pylori with visualization of good hemostasis. The endoscope was then advanced through the pylorus into the first and second portions of the duodenum, which appeared normal with no distal obstructions. The balloon was then placed in the stomach and pulled back to the area of the stricture. We then proceeded with graded dilatation from 2, 4, then eventually 6 atmospheres of pressure until we had moderate resistance or 20 mm in luminal diameter with 60 seconds also in between. Once we hit 6 atmospheres of pressure, we left the balloon insufflated for a duration of 120 seconds. The balloon was then desufflated and removed with visualization of good hemostasis as well as no mucosal tears. The endoscope was then slowly withdrawn while taking a second look and suctioning of residual air with no additional findings. The patient tolerated the procedure well. We will recommend continued medical management for reflux esophagitis, Rivas's esophagus and dysphagia, which would encompass small and more frequent meals, avoidance of eating at night as well as head elevation. She will also need to chew thoroughly and eat slowly. We would also recommend avoidance of caffeinated beverages and spicy, greasy and acidic foods. She is currently on Protonix daily. We will have her continue that but also add omeprazole 40 mg daily to be taken at a separate time during the day. Due to her history of Rivas's esophagus, we will recommend a followup EGD in approximately 3 years, however, sooner if she becomes symptomatic with her dysphagia. Job ID: [id number] DocumentID: [id number] Dictated Date: 12/04/2022 12:38:08 Passenger Booking Clerk Date: 12/04/2022 19:28:00 Dictated By: BRAD LUIS MD
== END 2022-12-04 13:24 | disposition home or self-care (01) ==
LOC: ENDO 11:08
PROVIDERS: ATTEND Surgery
DX: K21.00 Gastro-esophageal reflux disease with esophagitis, without bleeding (principal); K22.2 Esophageal obstruction; K44.9 Diaphragmatic hernia without obstruction or gangrene; K29.70 Gastritis, unspecified, without bleeding; K29.50 Unspecified chronic gastritis without bleeding; K31.89 Other diseases of stomach and duodenum; Z79.899 Other long term (current) drug therapy; Z87.891 Personal history of nicotine dependence
CPT/HCPCS: 88305

== ENCOUNTER 2023-01-05 19:34 | Emergency (ER) | payer MEDICARE, MEDICAID ==
--- NOTE | 2023-01-05 19:42 | ED Chest Pain ---
General Chief Complaint: Chest Pain Stated Complaint: CHEST PAIN/PAIN DOWN ARMS History of Present Illness Date Seen by Provider: Jan 05, 2023 Time Seen by Provider: 19:42 Initial Comments Rain is a 62-year-old female who presents to the emergency room with a chief complaint of precordial chest pain onset earlier today around 3:00. She states the pain has been continuous and seems to be in her left arm. She denies any associated shortness of breath, nausea. She did say that her heart was "jumping all over the place". She follows with Dr. Jack. She states that she is fighting insurance in order to have a stress test and heart cath. She is not a diabetic. She does take medication for hypertension. She denies any exacerbating factors. She has not taken anything for the pain. She denies recent illness such as fevers, productive cough, upset stomach, diarrhea, urinary tract symptoms. No swelling in her legs or pain in her calves. Currently rates the pain a "8". States that she has a history of very high triglycerides. Timing/Duration: 4-6 hours Severity/Quality: moderate, other ("a deep pain right over my heart") Location: central Radiation: arms (left mustapha) Activities at Onset: none ASA po HISTORY INSTRUCTOR: No NTG SL HISTORY INSTRUCTOR: No Associated Symptoms: shortness of breath ("hard to get a deep breath"), weakness (and dizzy) Allergies and Home Medications Allergies Coded Allergies: Xuqbrlf-BDU-[id number] Reductase Inhibitor (Verified Allergy, Unknown, 09/04/21) codeine (Verified Allergy, Unknown, 01/05/23) Opioids - Morphine Analogues (Verified Adverse Reaction, Intermediate, Nausea, 09/04/21) Patient Home Medication List Home Medication List Reviewed: Yes Amitriptyline HCl (Amitriptyline HCl) 25 Mg Tablet, 25 MG PO DAILY, (Reported) Entered as Reported by: MIHAELA PEREZ on 11/27/22950 Ascorbic Acid (Vitamin C) 1,000 Mg Tablet, 1,000 MG PO DAILY, (Reported) Entered as Reported by: MIHAELA PEREZ on 11/27/22950 Bacillus Coagulans (Probiotic) 1 Billion Cell Tab.chew, 1 EACH PO DAILY, (Reported) Entered as Reported by: MIHAELA PEREZ on 11/27/22 09 Clonazepam (Clonazepam) 0.5 Mg Tablet, 0.5 MG PO UD, (Reported) Entered as Reported by: MIHAELA PEREZ on 11/27/22950 Omeprazole (Omeprazole) 40 Mg Capsule.dr, 40 MG PO DAILY Prescribed by: JOHN MCKEON on 12/04/22 1246 Oxybutynin Chloride (Oxybutynin Chloride ER) 10 Mg Tab.er.24, 10 MG PO DAILY, (Reported) Entered as Reported by: MIHAELA PEREZ on 11/27/22950 Pantoprazole Sodium (Pantoprazole Sodium) 40 Mg Tablet.dr, 40 MG PO DAILY, (Reported) Entered as Reported by: MIHAELA PEREZ on 11/27/22950 Propranolol HCl (Propranolol HCl) 40 Mg Tablet, 40 MG PO BID, (Reported) Entered as Reported by: MIHAELA PEREZ on 11/27/22950 Selenomethionine (Selenium) 200 Mcg Tablet, 200 MCG PO DAILY, (Reported) Entered as Reported by: MIHAELA PEREZ on 11/27/22950 Vitamin D (Vitamin D3) 10 Mcg (400 Unit) Tablet, 400 MCG PO DAILY, (Reported) Entered as Reported by: MIHAELA PEREZ on 11/27/22950 Vitamin E Mixed (Vitamin E) 200 Unit Tablet, 200 UNIT PO DAILY, (Reported) Entered as Reported by: MIHAELA PEREZ on 11/27/22950 Review of Systems Review of Systems Constitutional: see HPI EENTM: No Symptoms Reported Cardiovascular: Chest Pain, Palpitations ("jumping all over the place") Gastrointestinal: No Symptoms Reported Genitourinary: No Symptoms Reported Musculoskeletal: no symptoms reported Skin: no symptoms reported Psychiatric/Neurological: Paresthesia (left arm) Past Dbimngc-Zrlxtd-Xvuhbo Hx Immunizations Up To Date First/Initial COVID19 Vaccinat: unknown Second COVID19 Vaccination Damaso: MAY 2020 Third COVID19 Vaccination Date: APRIL 2020 Seasonal Allergies Seasonal Allergies: Yes Past Medical History Surgery/Hospitalization HX: Thyroid, Cholesterol, Carotid blockage Surgeries: Yes (Thyroid biopsy) Breast, Cardiac, Eye Surgery, Gallbladder, Hysterectomy Respiratory: No Cardiac: Yes High Cholesterol Neurological: Yes Headaches /Migraines Reproductive Disorders: 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 Sexually Transmitted Disease: No HIV/AIDS: No Gastrointestinal: Yes (history of bowel obstruction; GASTRITIS) Gastroesophageal Reflux, Chronic Constipation, Polyps, Hiatal Hernia, Ulcer Musculoskeletal: Yes (chronic leg pain) Degenerate Disk Disease Endocrine: Yes (THYROID NODULES) Hypothyroidsim HEENT: No Loss of Vision: Bilateral Hearing Impairment: Denies Cancer: No Psychosocial: Yes Anxiety, Depression Integumentary: No (history of cellulitis) Blood Disorders: Yes (ANEMIA) Adverse Reaction/Blood Tranf: No (N/A) Family Medical History Heart Disease, Stroke PAST SURGICAL HISTORY: -LEFT BREAST BIOPSIES X 2 -LIPOMA REMOVALS -CHOLECYSTECTOMY -HYSTERECTOMY/BILATERAL SALPINGO-OOPHORECTOMY -CATARACT SURGERY -EGD 11/01/[address] LUIS: POSTOPERATIVE DIAGNOSES: Reflux esophagitis stage II, mild distal esophageal stricture, no hiatal hernia, moderate gastritis and no distal obstructions. PROCEDURES PERFORMED: EGD with biopsy and balloon dilatation. CARDIAC CATH 06/13/[address] JACK: IN CONCLUSION: 1. Small to moderate-sized coronary system with mild coronary artery disease, no significant obstructive disease. 2. Normal left ventricular end diastolic pressure. DISCUSSION AND RECOMMENDATION: The patient's chest pain is probably noncardiac in nature. Medical therapy is recommended. No intervention is needed. FINAL DIAGNOSES: 1. Chest pain with nonspecific etiology. 2. Coronary artery disease. 3. Hypertension. 4. Hyperlipidemia. Physical Exam Vital Signs Vital Signs - First Documented 01/05/23 19:40 Temp 36.3 Pulse 49 Resp 20 B/P (MAP) 138/72 (94) Pulse Ox 98 O2 Delivery Room Air Capillary Refill : Height, Weight, BMI Height: 5'5.00" Weight: 150lbs. 0.0oz. 68.263141bm; 24.06 BMI Method:Stated General Appearance: WD/WN, Anxious HEENT: PERRL/EOMI Neck: Normal Inspection Respiratory: Lungs Clear, Normal Breath Sounds, No Accessory Muscle Use, No Respiratory Distress Cardiovascular: Regular Rate, Rhythm, Normal Peripheral Pulses (2+ rad pulses) Gastrointestinal: Normal Bowel Sounds, Non Tender, Soft Extremity: Normal Capillary Refill, Normal Range of Motion, No Pedal Edema Neurologic/Psychiatric: Alert, Oriented x3, No Motor/Sensory Deficits, Other (anxious) Skin: Normal Color, Warm/Dry Progress/Results/Core Measures Results/Orders Lab Results Laboratory Tests Test 01/05/23 19:43 Range/Units White Blood Count 6.2 4.3-11.0 10^3/uL Red Blood Count 3.78 L 3.80-5.11 10^6/uL Hemoglobin 12.6 11.5-16.0 g/dL Hematocrit 37 35-52 % Mean Corpuscular Volume 99 80-99 fL Mean Corpuscular Hemoglobin 33 25-34 pg Mean Corpuscular Hemoglobin Concent 34 32-36 g/dL Red Cell Distribution Width 11.8 10.0-14.5 % Platelet Count 216 130-400 10^3/uL Mean Platelet Volume 10.0 9.0-12.2 fL Immature Granulocyte % (Auto) 0 % Neutrophils (%) (Auto) 40 L 42-75 % Lymphocytes (%) (Auto) 47 H 12-44 % Monocytes (%) (Auto) 9 0-12 % Eosinophils (%) (Auto) 3 0-10 % Basophils (%) (Auto) 1 0-10 % Neutrophils # (Auto) 2.5 1.8-7.8 10^3/uL Lymphocytes # (Auto) 2.9 1.0-4.0 10^3/uL Monocytes # (Auto) 0.5 0.0-1.0 10^3/uL Eosinophils # (Auto) 0.2 0.0-0.3 10^3/uL Basophils # (Auto) 0.0 0.0-0.1 10^3/uL Immature Granulocyte # (Auto) 0.0 0.0-0.1 10^3/uL Prothrombin Time 13.6 12.2-14.7 SEC INR Comment 1.0 0.8-1.4 Activated Partial Thromboplast Time 24 24-35 SEC Sodium Level 137 135-145 MMOL/L Potassium Level 3.9 3.6-5.0 MMOL/L Chloride Level 102 98-107 MMOL/L Carbon Dioxide Level 27 21-32 MMOL/L Anion Gap 8 5-14 MMOL/L Blood Urea Nitrogen 11 7-18 MG/DL Creatinine 0.77 0.60-1.30 MG/DL Estimat Glomerular Filtration Rate 86 BUN/Creatinine Ratio 14 Glucose Level 109 H 70-105 MG/DL Calcium Level 9.6 8.5-10.1 MG/DL Corrected Calcium 9.3 8.5-10.1 MG/DL Magnesium Level 2.4 1.6-2.4 MG/DL Total Bilirubin 0.3 0.1-1.0 MG/DL Aspartate Amino Transf (AST/SGOT) 24 5-34 U/L Alanine Aminotransferase (ALT/SGPT) 20 0-55 U/L Alkaline Phosphatase 74 40-136 U/L Troponin I < 0.028 <0.028 NG/ML Total Protein 7.3 6.4-8.2 GM/DL Albumin 4.4 3.2-4.5 GM/DL My Orders Orders - ROSA SILVER MD Ekg Tracing (01/05/23 19:37) Cbc And Automated Diff (01/05/23 19:43) Magnesium (01/05/23 19:43) Chest 1 View, Ap/Pa Only (01/05/23 19:43) Comprehensive Metabolic Panel (01/05/23 19:43) Protime With Inr (01/05/23 19:43) Partial Thromboplastin Time (01/05/23 19:43) O2 (01/05/23 19:43) Monitor-Rhythm Ecg Trace Only (01/05/23 19:43) Ed Iv/Invasive Line Start (01/05/23 19:43) Troponin I Crisp (01/05/23 19:43) Antacid Suspension (Antacid Suspension (01/05/23 20:30) Sucralfate Tablet (Sucralfate Tablet) (01/05/23 20:30) Lidocaine 2% Viscous 15 Ml (Xylocaine Vi (01/05/23 20:30) Ketorolac Injection (Ketorolac Injection (01/05/23 20:45) Medications Given in ED Current Medications Medications Dose Ordered Sig/Gray Route Start Time Stop Time Status Last Admin Dose Admin Al Hydrox/Mg Hydrox/Simethicone 30 ml ONCE ONCE PO 01/05/23 20:30 01/05/23 20:31 DC 01/05/23 20:35 30 ML Lidocaine HCl 5 ml ONCE ONCE PO 01/05/23 20:30 01/05/23 20:31 DC 01/05/23 20:35 5 ML Sucralfate 1 gm ONCE ONCE PO 01/05/23 20:30 01/05/23 20:31 DC 01/05/23 20:35 1 GM Vital Signs/I&O 01/05/23 01/05/23 19:40 21:12 Temp 36.3 36.3 Pulse 49 49 Resp 20 20 B/P (MAP) 138/72 (94) 129/63 Pulse Ox 98 98 O2 Delivery Room Air Room Air Progress Progress Note : Time: 20:44 Progress Note Patient seen and evaluated by me. Evaluation today includes history and physical exam with "cardiac work-up" to include CBC, Chem-12, magnesium level, troponin, coags, EKG and single view chest x-ray. Pertinent physical exam findings anxious appearing thin female in mild distress due to anxiety about health. She has clear lungs, bradycardic heart rate that is regular, 1-2+ radial pulses bilaterally. Soft abdomen, no involuntary guarding or rebound. No lower extremity edema. No gross neurologic deficits. Differential diagnosis includes acute coronary syndrome, pleurisy, costochondritis, anxiety Labs, EKG and chest x-ray independently reviewed and interpreted by me. Her labs including CBC, mag, troponin, Chem-12 and coags are all within normal limits with no abnormalities noted. Her EKG is sinus bradycardia without ectopy or ST segment change. Chest x-ray is unremarkable for infiltrate, effusion or other mediastinal abnormality. Patient's risk factors for ACS are age, hypercholesterolemia. Her heart score would be 2 and as the patient has had pain ongoing for 6 or 7 hours with a negative troponin exceedingly low risk for acute coronary syndrome. 1 troponin evaluation is sufficient to rule out ACS. She is treated initially with a GI cocktail. I then offered some Toradol and she declined. She then told me that she was concerned that maybe the chest pain might be caused by "cysts" in her axilla. I did palpate this after labs rev iewed and plan of care discussed. She does have tenderness in the axilla with no palpable masses. She is very anxious about having a "cyst burst" and "infect my blood". Reassurance is provided. She has no concerning findings for pneumonia, pneumothorax, aortic dissection, pulmonary embolism. 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 Return precautions provided in both verbal and written format. All questions are sought and answered. Patient is stable for discharge. Initial ECG Impression Date: Jan 05, 2023 Initial ECG Impression Time: 19:48 Initial ECG Rate: 49 Initial ECG Rhythm: Normal Sinus Initial ECG Intervals: Normal Initial ECG Impression: Normal Diagnostic Imaging Diagonstic Imaging: Xray Plain Films/CT/US/NM/MRI: chest Comments [facility]. [place], [place] NAME: RAIN HENSLEY [facility] REC#: [id number] PT STATUS: REG ER : 1960 PHYSICIAN: ROSA SILVER MD ADMIT DATE: 01/05/23/ER Signed Date of Exam:01/05/23 CHEST 1 VIEW, AP/PA ONLY HISTORY: Chest pain. TECHNIQUE: Frontal view of the chest. COMPARISON: 09/05/2022. FINDINGS: Lung volumes are large. No consolidation is seen. There is no pleural effusion or pneumothorax. The cardiac silhouette is normal in size. IMPRESSION: No acute pulmonary abnormality. Dictated by: Dictated on workstation # [id number] Dict: 01/05/232000 Trans: 01/05/232010 [id number] Interpreted by: CORDELL BARRIENTOS MD Electronically signed by: CORDELL BARRIENTOS MD 01/05/232010 Departure Impression Primary Impression: Atypical chest pain Disposition: 01 HOME, SELF-CARE Condition: Improved Departure-Patient Inst. Decision time for Depature: 21:07 Referrals: [facility] [place] (PCP/Family) Primary Care Physician Patient Instructions: Chest Pain That Is Not Caused by the Heart (DC) Add. Discharge Instructions: Continue your daily medications as prescribed. For your left shoulder pain and discomfort, please take extra strength Tylenol, 2 pills every 6 hours as needed for pain. You can also use [id number] Biofreeze or IcyHot. Diclofenac gel is a pain medication that you can also rub into the area which may provide relief. Hot packs and cold packs may also provide relief. Please follow-up next week with your primary care provider. Return to the emergency department for any new, concerning or emergent complaints. Copy Copies To 1: BALDO LAGUERRE KATHRYN M MD Jan 05, 2023 19:42
[2023-01-05 19:54] LABS: BASOPHILS % (AUTO) 1 % (0-10); EOSINOPHILS # (AUTO) 0.2 10^3/uL (0.0-0.3); EOSINOPHILS % (AUTO) 3 % (0-10); HEMATOCRIT 37 % (35-52); HEMOGLOBIN 12.6 g/dL (11.5-16.0); LYMPHOCYTES # (AUTO) 2.9 10^3/uL (1.0-4.0); LYMPHOCYTES % (AUTO) 47 % (12-44); MEAN CORPUSCULAR HEMOGLOBIN 33 pg (25-34); MEAN CORPUSCULAR HGB CONC 34 g/dL (32-36); MEAN CORPUSCULAR VOLUME 99 fL (80-99); MONOCYTES # (AUTO) 0.5 10^3/uL (0.0-1.0); MONOCYTES % (AUTO) 9 % (0-12); NEUTROPHILS # (AUTO) 2.5 10^3/uL (1.8-7.8); NEUTROPHILS % (AUTO) 40 % (42-75); PLATELET COUNT 216 10^3/uL (130-400); WHITE BLOOD COUNT 6.2 10^3/uL (4.3-11.0)
[2023-01-05 20:06] LABS: PROTHROMBIN TIME PATIENT 13.6 SEC (12.2-14.7)
--- NOTE | 2023-01-05 20:08 | Diagnostic Imaging Report ---
HISTORY: Chest pain. TECHNIQUE: Frontal view of the chest. COMPARISON: 09/05/2022. FINDINGS: Lung volumes are large. No consolidation is seen. There is no pleural effusion or pneumothorax. The cardiac silhouette is normal in size. IMPRESSION: No acute pulmonary abnormality. Dictated by: Dictated on workstation # [id number]
[2023-01-05 20:11] LABS: ALANINE AMINOTRANSFERASE 20 U/L (0-55); ALBUMIN 4.4 GM/DL (3.2-4.5); ALKALINE PHOSPHATASE 74 U/L (40-136); BILIRUBIN,TOTAL 0.3 MG/DL (0.1-1.0); BUN/CREATININE RATIO 14; CALCIUM 9.6 MG/DL (8.5-10.1); CARBON DIOXIDE 27 MMOL/L (21-32); CHLORIDE 102 MMOL/L (98-107); CREATININE SERUM 0.77 MG/DL (0.60-1.30); GFR ESTIMATED 86; GLUCOSE 109 MG/DL (70-105); MAGNESIUM 2.4 MG/DL (1.6-2.4); POTASSIUM 3.9 MMOL/L (3.6-5.0); SODIUM 137 MMOL/L (135-145); TOTAL PROTEIN 7.3 GM/DL (6.4-8.2)
[2023-01-05] MEDS ORDERED: ANTACID SUSPENSION 30 ML UDC PO ONE (20:30)
[2023-01-05] MEDS ORDERED: LIDOCAINE 2% VISCOUS 15 ML UDC PO ONE (20:30)
[2023-01-05] MEDS ORDERED: SUCRALFATE 1 GM TABLET PO ONE (20:30)
[2023-01-05] MEDS ORDERED: KETOROLAC INJ 15 MG/ML VIAL IVP ONE (20:45)
[2023-01-05 21:12] VITALS: BP 129/63
== END 2023-01-05 21:14 | disposition home or self-care (01) ==
LOC: EDUNIT# 19:34 → ER 19:37
DX: R07.89 Other chest pain (principal); I10 Essential (primary) hypertension; Z79.899 Other long term (current) drug therapy
CPT/HCPCS: 36415; 71045; 80053; 83735; 84484; 85025; 85610; 85730; 93005; 93041

== ENCOUNTER → 2023-01-23 | Outpatient (CLI) | payer MEDICARE, MEDICAID | LOC: CARD 13:41 | PROVIDERS: ATTEND Internal Medicine Cardiovascular Disease | DX: I11.9 Hypertensive heart disease without heart failure (principal); I25.10 Atherosclerotic heart disease of native coronary artery without angina pectoris | CPT/HCPCS: 93306 ==